=== PATIENT | female | born 1950 | race Caucasian/White ===

== ENCOUNTER 2022-01-05 04:44 | Inpatient (IN) | payer OTHER ==
[2022-01-05] MEDS ORDERED: MORPHINE 2 MG/ML SYR ONE (05:28)
[2022-01-05] MEDS ORDERED: NA CHLORIDE 0.9% 500 ML ONE (05:29)
[2022-01-05] MEDS ORDERED: ONDANSETRON 4 MG/2 ML VIAL ONE (05:29)
[2022-01-05 05:42] LABS: Absolute Lymphocytes (CBC) 4.4 K/uL (0.7-4.9); Hematocrit 44.6 % (36.0-45.0); MPV 8.2 fL (7.6-11.3); RBC Red Blood Cell Count 5.33 M/uL (3.86-4.86)
[2022-01-05 05:55] LABS: Albumin 3.5 g/dL (3.4-5.0); Bilirubin Total 0.4 mg/dL (0.2-1.0); Potassium 4.3 mmol/L (3.5-5.1); Protein, Total 7.4 g/dL (6.4-8.2)
[2022-01-05] MEDS ORDERED: MIDAZOLAM HCL 2 MG/2 ML INJ ONE (06:00)
[2022-01-05] MEDS ORDERED: ETOMIDATE 20 MG/10 ML VIAL IV ONE (06:02)
[2022-01-05] MEDS ORDERED: NA CHLORIDE 0.9% 1,000 ML ONE (06:12)
[2022-01-05] MEDS ORDERED: METHYLPREDNISOLONE 125 MG INJ ONE (06:40)
[2022-01-05] MEDS ORDERED: DIPHENHYDRAMINE 50 MG/ML VIAL ONE (06:40)
[2022-01-05] MEDS ORDERED: FAMOTIDINE 20 MG/2 ML VIAL IV ONE (06:40)
--- NOTE | 2022-01-05 06:44 | EDPHYS ---
Physician Documentation [facility] Name: Kely Harper Age: 71 yrs Sex: Female : 1950 Arrival Date: 01/05/2022 Time: 04:49 Bed External Waiting Private MD: NOÉ Physician Maicol Abad HPI: 01/05 05:59 This 71 yrs old Female presents to ER via EMS with complaints of FALL OUT OF [facility] BED , 2DAYS , DISLOCATED. 05:59 The patient or guardian complains of decreased range of motion, pain. left shoulder. [facility] Context: The problem was sustained at home, resulted from a fall, BED. Onset: The symptoms/episode began/occurred 2 day(s) ago. Modifying factors: the symptoms are alleviated by remaining still, The symptoms are aggravated by lifting weight, movement. Associated signs and symptoms: The patient has no apparent associated signs or symptoms. Severity of symptoms: At their worst the symptoms were moderate, in the emergency department the symptoms are unchanged. The patient has not experienced similar symptoms in the past. Historical: - Allergies: 04:57 Penicillins; tk1 04:57 fentanyl; tk1 - Home Meds: 04:57 aspirin 81 mg Oral cpDR [Active]; buspirone 10 mg Oral tab 1 tab 3 times per day tk1 [Active]; Vitamin D3 125 mcg (5,000 unit) oral tab [Active]; Depakote 125 mg Oral TbEC 1 tab 2 times per day [Active]; docusate sodium 100 mg Oral cap 1 cap once daily [Active]; lactulose 10 gram/15 mL (15 mL) Oral soln 30 mL once daily [Active]; Lorazepam 0.25 mg Oral q HS [Active]; multivitamin oral cap [Active]; simvastatin 20 mg Oral tab 1 tab once daily [Active]; tramadol 50 mg Oral tab 1 tab q HS [Active]; acetaminophen 325 mg Oral cap q 6 hr PRN for pain [Active]; ascorbic acid (vitamin C) 500 mg cap daily [Active]; zinc sulfate 50 mg zinc (220 mg) Oral tab daily [Active]; - PMHx: 04:57 Cerebral palsy; tk1 - Immunization history:: Adult Immunizations up to date. - Social history:: Smoking status: Patient denies any tobacco usage or history of. Smoking status: Patient denies any tobacco usage or history of. - Family history:: not pertinent. ROS: 05:59 Constitutional: Negative for fever, chills, and weight loss, Eyes: Negative for injury, marzena pain, redness, and discharge, ENT: Negative for injury, pain, and discharge, Neck: Negative for injury, pain, and swelling, Cardiovascular: Negative for chest pain, palpitations, and edema, Respiratory: Negative for shortness of breath, cough, wheezing, and pleuritic chest pain, Abdomen/GI: Negative for abdominal pain, nausea, vomiting, diarrhea, and constipation, Back: Negative for injury and pain, : Negative for injury, bleeding, discharge, and swelling, Skin: Negative for injury, rash, and discoloration, Neuro: Negative for headache, weakness, numbness, tingling, and seizure, Psych: Negative for depression, anxiety, suicide ideation, homicidal ideation, and hallucinations, Allergy/Immunology: Negative for hives, rash, and allergies, Endocrine: Negative for neck swelling, polydipsia, polyuria, polyphagia, and marked weight changes, Hematologic/Lymphatic: Negative for swollen nodes, abnormal bleeding, and unusual bruising. 05:59 MS/extremity: Positive for decreased range of motion, pain, swelling, tenderness, of the anterior aspect of left shoulder and posterior aspect of left shoulder. Exam: 05:59 Constitutional: This is a well developed, well nourished patient who is awake, alert, marzena and in no acute distress. Head/Face: Normocephalic, atraumatic. Eyes: Pupils equal round and reactive to light, extra-ocular motions intact. Lids and lashes normal. Conjunctiva and sclera are non-icteric and not injected. Cornea within normal limits. Periorbital areas with no swelling, redness, or edema. ENT: Nares patent. No nasal discharge, no septal abnormalities noted. Tympanic membranes are normal and external auditory canals are clear. Oropharynx with no redness, swelling, or masses, exudates, or evidence of obstruction, uvula midline. Mucous membranes moist. Neck: Trachea midline, no thyromegaly or masses palpated, and no cervical lymphadenopathy. Supple, full range of motion without nuchal rigidity, or vertebral point tenderness. No Meningismus. Chest/axilla: Normal chest wall appearance and motion. Nontender with no deformity. No lesions are appreciated. Cardiovascular: Regular rate and rhythm with a normal S1 and S2. No gallops, murmurs, or rubs. Normal PMI, no JVD. No pulse deficits. Respiratory: Lungs have equal breath sounds bilaterally, clear to auscultation and percussion. No rales, rhonchi or wheezes noted. No increased work of breathing, no retractions or nasal flaring. Abdomen/GI: Soft, non-tender, with normal bowel sounds. No distension or tympany. No guarding or rebound. No evidence of tenderness throughout. Back: No spinal tenderness. No costovertebral tenderness. Full range of motion. Female : Normal external genitalia. Skin: Warm, dry with normal turgor. Normal color with no rashes, no lesions, and no evidence of cellulitis. Neuro: Awake and alert, GCS 15, oriented to person, place, time, and situation. Cranial nerves II-XII grossly intact. Motor strength 5/5 in all extremities. Sensory grossly intact. Cerebellar exam normal. Normal gait. Psych: Awake, alert, with orientation to person, place and time. Behavior, mood, and affect are within normal limits. 05:59 Musculoskeletal/extremity: ROM: limited active range of motion due to pain, limited passive range of motion due to pain, in the anterior aspect of left shoulder and posterior aspect of left shoulder, Circulation is intact in all extremities. Sensation intact. Compartment Syndrome exam of affected extremity: is normal. Joints: All joints are normal except the left shoulder displays painful range of motion, swelling. 06:55 ECG was reviewed by the Attending Physician. [facility] Vital Signs: 04:50 BP 145 / 107; Pulse 87; Resp 20; Temp 97.3; Pulse Ox 97% on R/A; Weight 92.99 kg; vc1 Height 68 in. (172.72 cm); Pain 0/10; 07:53 BP 165 / 77; Pulse 71; Resp 16; Pulse Ox 100% on 3 lpm NC; tk1 09:32 BP 146 / 83; Pulse 77; Resp 16; Pulse Ox 96% ; [place] 04:50 Body Mass Index 31.17 (92.99 kg, 172.72 cm) vc1 Wilda Coma Score: 05:15 Eye Response: spontaneous(4). Verbal Response: incomprehensible(2). Motor Response: tk1 localizes pain(5). Total: 11. Trauma Score (Adult): 05:15 Eye Response: spontaneous(1); Verbal Response: incomprehensible(0); Motor Response: tk1 localizes pain(1); Systolic BP: > 89 mm Hg(4); Respiratory Rate: 10 to 29 per min(4); Wilda Score: 11; Trauma Score: 10 MDM: 05:[address] [facility] 06:05 Differential diagnosis: Anterior dislocation with fracture, Anterior dislocation marzena without fracture, Posterior dislocation with fracture, Posterior dislocation without fracture, DJD, tendonitis. Data reviewed: vital signs, nurses notes, lab test result(s), radiologic studies. Data interpreted: quality assurance monitor: rate is 97 beats/min, rhythm is regular, Pulse oximetry: on room air is 97 %. Test interpretation: by ED physician or midlevel provider: ECG, plain radiologic studies. Counseling: I had a detailed discussion with the patient and/or guardian regarding: the historical points, exam findings, and any diagnostic results supporting the discharge/admit diagnosis, lab results, radiology results, the need for outpatient follow up. 01/05 05:19 Order name: CBC with Diff [facility] 01/05 05:19 Order name: Comprehensive Metabolic Panel; Complete Time: 05:[address] [facility] 01/05 06:40 Order name: Valproic Acid (depakote) [facility] 01/05 08:36 Order name: Manual Differential [facility] 01/05 08:50 Order name: COVID-19 SARS RT PCR (Document "Date of Onset" if Symptomatic) 01/05 10:09 Order name: SARS-COV-2 RT PCR [facility]UT 01/05 05:19 Order name: Shoulder Left (2 View) XRAY [facility] 01/05 05:20 Order name: CT Head C Spine [facility] 01/05 05:48 Order name: Chest Single View XRAY [facility] 01/05 07:16 Order name: Shoulder Left Wo Con EDMS 01/05 06:40 Order name: EKG; Complete Time: 06:[address] [facility] 01/05 06:40 Order name: EKG - Nurse/Tech; Complete Time: 07:[address] [facility] 01/05 07:29 Order name: CONS Physician Consult EDMS EC:55 Rate is 76 beats/min. Rhythm is regular. QRS Dag[place] is Normal. AK interval is normal. QRS marzena interval is normal. QT interval is normal. No Q waves. T waves are Normal. No ST changes noted. Clinical impression: NSR w/ Non-specific ST/T Changes, 1st degree heart block, and No evidence of ischemia. Interpreted by me. Reviewed by me. Administered Medications: 05:22 Drug: morphine 2 mg Route: IVP; Rate: bolus; Infused Over: 2 mins; Site: right forearm; [facility] 06:48 Follow up: Response: No adverse reaction tk1 05:22 Drug: Zofran (Ondansetron) 4 mg Route: IVP; Rate: bolus; Infused Over: 2 mins; Site: marzena right forearm; 06:48 Follow up: Response: No adverse reaction tk1 05:23 Drug: NS 0.9% 500 ml Route: IV; Rate: bolus; Infused Over: 1 hrs; Site: right forearm; [facility] Delivery: Primary tubing; 06:30 Drug: Versed (midazolam) 2 mg Route: IVP; Rate: bolus; Infused Over: 1 mins; Site: tk1 right forearm; 06:45 Follow up: Response: Patient is sedated tk1 06:32 Drug: Etomidate 10 mg Route: IVP; Rate: bolus; Infused Over: 1 mins; Site: right tk1 forearm; 06:45 Follow up: Response: Patient is sedated tk1 06:33 Drug: Etomidate 2 mg Route: IVP; Rate: bolus; Infused Over: 1 mins; Site: right forearm;tk1 06:40 Drug: SOLU-Medrol (methylPrednisoLONE) 125 mg Route: IVP; Rate: bolus; Infused Over: 2 tk1 mins; Site: right forearm; 07:17 Follow up: Response: No adverse reaction tk1 06:45 Drug: Benadryl (diphenhydrAMINE) 25 mg Route: IVP; Rate: bolus; Infused Over: 2 mins; tk1 Site: right forearm; 07:17 Follow up: Response: No adverse reaction tk1 06:48 Not Given (1st dose effectivee): Versed (midazolam) 2 mg IVP once tk1 06:49 Drug: Pepcid (famotidine) 20 mg Route: IVP; Rate: bolus; Infused Over: 2 mins; Site: tk1 right forearm; 07:17 Follow up: Response: No adverse reaction tk1 06:51 Not Given (wrong routee): SOLU-Medrol (methylPREDNISolone sodium succinate) 125 mg IM tk1 once Disposition Summary: 01/05/22 06:43 Hospitalization Ordered Hospitalization Status: Observation marzena Provider: Paul Choe cha Location: Telemetry/MedSurg (observation) marzena Condition: Fair marzena Problem: new marzena Symptoms: have improved marzena Bed/Room Type: Standard marzena Room Assignment: marzena Diagnosis - Fall (on) (from) other stairs and steps - CHAIR marzena - Dislocation of unspecified parts of unspecified shoulder girdle, initial encounter marzena - LEFT SHOULDER - Severe intellectual disabilities - CEREBRAL PALSY(01/05/22 06:47) marzena - Adverse effect of other drugs, medicaments and biological substances marzena Forms: - Medication Reconciliation Form marzena - SBAR form marzena Signatures: Dispatcher [employer] EDMaicol House MD MD cha Kirby, Tammie tk1 Yara Pa RN RN vc1 Corrections: (The following items were deleted from the chart) 06:47 06:44 Severe intellectual disabilities marzena marzena
--- NOTE | 2022-01-05 06:44 | ER ---
Nurse's Notes [facility] Name: Kely Harper Age: 71 yrs Sex: Female : 1950 Arrival Date: 01/05/2022 Time: 04:49 Bed External Waiting Private MD: Diagnosis: Fall (on) (from) other stairs and steps-CHAIR;Dislocation of unspecified parts of unspecified shoulder girdle, initial encounter-LEFT SHOULDER;Severe intellectual disabilities-CEREBRAL PALSY;Adverse effect of other drugs, medicaments and biological substances Presentation: 01/05 04:50 Chief complaint: EMS states: Patient fell from chair to floor at group home onto left tk1 shoulder x1 day ago. Mobile xrays done. Possible left shoulder dislocation and neck fracture. Coronavirus screen: Vaccine status: Patient reports receiving the 2nd dose of the covid vaccine. Date December 24, 2021 Patient reports receiving the 1st dose of the Covid vaccine. Date December 03, 2021. Ebola Screen: Patient negative for fever greater than or equal to 101.5 degrees Fahrenheit, and additional compatible Ebola Virus Disease symptoms Patient denies exposure to infectious person. Initial Sepsis Screen: Does the patient meet any 2 criteria? No. Patient's initial sepsis screen is negative. Does the patient have a suspected source of infection? No. Patient's initial sepsis screen is negative. Risk Assessment: Do you want to hurt yourself or someone else? Patient reports no desire to harm self or others. Onset of symptoms was January 03, 2022. 04:50 Method Of Arrival: EMS: [facility] tk1 04:50 Acuity: NO 2 tk1 Triage Assessment: 04:57 General: Appears in no apparent distress. well groomed, well developed, well nourished, tk1 Behavior is calm, cooperative. Pain: Unable to use pain scale. Does not appear to understand pain scale. 05:10 EENT: No deficits noted. No signs and/or symptoms were reported regarding the EENT tk1 system. Neuro: Level of Consciousness is awake, alert, Oriented to Patient is non verbal.. Cardiovascular: Heart tones S1 S2 Rhythm is sinus rhythm. Respiratory: Airway is patent Trachea midline Respiratory effort is even, unlabored, Respiratory pattern is regular, symmetrical, Breath sounds are clear bilaterally. GI: No deficits noted. No signs and/or symptoms were reported involving the gastrointestinal system. GI: Abdomen is round non-distended, Bowel sounds present X 4 quads. Abd is soft and non tender X 4 quads. : No deficits noted. No signs and/or symptoms were reported regarding the genitourinary system. Derm: No deficits noted. Skin is intact, is healthy with good turgor, Skin is dry, Skin is pink, warm \\T\\ dry. Skin temperature is warm. Musculoskeletal: Capillary refill < 3 seconds, in bilateral fingers. Parent/caregiver report the patient having Possible left shoulder dislocation and neck fracture S/P fall x1 day ago. Cervical collar in place. No obvious deformity to left shoulder. Injury Description: Patient fell from chair to floor onto left side. of upper body. Historical: - Allergies: 04:57 Penicillins; tk1 04:57 fentanyl; tk1 - Home Meds: 04:57 aspirin 81 mg Oral cpDR [Active]; buspirone 10 mg Oral tab 1 tab 3 times per day tk1 [Active]; Vitamin D3 125 mcg (5,000 unit) oral tab [Active]; Depakote 125 mg Oral TbEC 1 tab 2 times per day [Active]; docusate sodium 100 mg Oral cap 1 cap once daily [Active]; lactulose 10 gram/15 mL (15 mL) Oral soln 30 mL once daily [Active]; Lorazepam 0.25 mg Oral q HS [Active]; multivitamin oral cap [Active]; simvastatin 20 mg Oral tab 1 tab once daily [Active]; tramadol 50 mg Oral tab 1 tab q HS [Active]; acetaminophen 325 mg Oral cap q 6 hr PRN for pain [Active]; ascorbic acid (vitamin C) 500 mg cap daily [Active]; zinc sulfate 50 mg zinc (220 mg) Oral tab daily [Active]; - PMHx: 04:57 Cerebral palsy; tk1 - Immunization history:: Adult Immunizations up to date. - Social history:: Smoking status: Patient denies any tobacco usage or history of. Smoking status: Patient denies any tobacco usage or history of. - Family history:: not pertinent. Screenin:59 Abuse screen: Denies threats or abuse. Nutritional screening: Difficulty vc1 chewing/swallowing? Yes. Tuberculosis screening: No symptoms or risk factors identified. 05:01 Fall Risk Fall in past 12 months (25 points). Secondary diagnosis (15 points) Cerebral vc1 Palsey. IV access (20 points). Ambulatory Aid- None/Bed Rest/Nurse Assist (0 pts). Gait- Normal/Bed Rest/Wheelchair (0 pts) Mental Status- Overestimates/Forgets Limitations (15 pts.). Total Stanford Fall Scale indicates High Risk Score (45 or more points). Fall prevention measures have been instituted. Side Rails Up X 2 Placed Close to Nursing Station Frequent Obs/Assessments Occuring. Assessment: 05:15 Reassessment: See Triage assessment. Trauma code called at [id number]. Security arrived at tk1 0449. 06:54 Reassessment: Patient with rash noted to trunk area. Dr. Abad at bedside. New tk1 verbal orders received. 07:36 Reassessment: conscious sedation flow sheet completed. pt base line is 8 d/t dx of CP tk1 pt does not move limbs. General: Appears in no apparent distress. Behavior is calm, cooperative. Neuro: Level of Consciousness is awake, alert, Oriented to none pt dx with CP, pt is awake and alert.. 12:03 Reassessment: Pt to OR at this time. Unknown whether or not that patient will get a ss room assignment on second floor per Leyda, supervisor hanging and trimming or if patient will come back to ED. Vital Signs: 04:50 BP 145 / 107; Pulse 87; Resp 20; Temp 97.3; Pulse Ox 97% on R/A; Weight 92.99 kg; vc1 Height 68 in. (172.72 cm); Pain 0/10; 07:53 BP 165 / 77; Pulse 71; Resp 16; Pulse Ox 100% on 3 lpm NC; tk1 09:32 BP 146 / 83; Pulse 77; Resp 16; Pulse Ox 96% ; [place] 04:50 Body Mass Index 31.17 (92.99 kg, 172.72 cm) vc1 Vitals: 05:15 Cardiac Rhythm Assessment Regular Sinus rhythm. tk1 Remington Coma Score: 05:15 Eye Response: spontaneous(4). Verbal Response: incomprehensible(2). Motor Response: tk1 localizes pain(5). Total: 11. Trauma Score (Adult): 05:15 Eye Response: spontaneous(1); Verbal Response: incomprehensible(0); Motor Response: tk1 localizes pain(1); Systolic BP: > 89 mm Hg(4); Respiratory Rate: 10 to 29 per min(4); Remington Score: 11; Trauma Score: 10 ED Course: 04:49 Patient arrived in ED. tk1 04:50 Zaynab Granados is Primary Nurse. tk1 04:57 Triage completed. tk1 04:58 Arm band placed on left wrist. vc1 04:58 Patient has correct armband on for positive identification. Bed in low position. Call vc1 light in reach. Side rails up X2. manager monitoring on. Pulse ox on. NIBP on. Door closed. Warm blanket given. Pillow given. 05:11 Maicol Abad MD is Attending Physician. marzena 05:15 Initial lab(s) drawn, by pa, sent to lab. Inserted saline lock: 22 gauge 24 gauge tk1 forearm, using aseptic technique. Inserted saline lock: Blood collected. Patient maintains SpO2 saturation greater than 95% on room air. 05:22 Comprehensive Metabolic Panel Sent. marzena 05:22 CBC with Diff Sent. marzena 05:44 CT Head C Spine In Process Unspecified. EDMS 06:27 Shoulder Left (2 View) XRAY In Process Unspecified. EDMS 06:30 Chest Single View XRAY In Process Unspecified. EDMS 06:41 Paul Choe MD is Hospitalizing Provider. marzena 07:38 No provider procedures requiring assistance completed. Inserted saline lock:. tk1 07:44 Primary Nurse role handed off by Zaynab Granados bd 09:28 COVID-19 SARS RT PCR (Document "Date of Onset" if Symptomatic) Sent. [place] 12:03 Patient admitted, IV remains in place. [place] Administered Medications: 05:22 Drug: morphine 2 mg Route: IVP; Rate: bolus; Infused Over: 2 mins; Site: right forearm; marzena 06:48 Follow up: Response: No adverse reaction tk1 05:22 Drug: Zofran (Ondansetron) 4 mg Route: IVP; Rate: bolus; Infused Over: 2 mins; Site: [facility] right forearm; 06:48 Follow up: Response: No adverse reaction tk1 05:23 Drug: NS 0.9% 500 ml Route: IV; Rate: bolus; Infused Over: 1 hrs; Site: right forearm; [facility] Delivery: Primary tubing; 06:30 Drug: Versed (midazolam) 2 mg Route: IVP; Rate: bolus; Infused Over: 1 mins; Site: tk1 right forearm; 06:45 Follow up: Response: Patient is sedated tk1 06:32 Drug: Etomidate 10 mg Route: IVP; Rate: bolus; Infused Over: 1 mins; Site: right tk1 forearm; 06:45 Follow up: Response: Patient is sedated tk1 06:33 Drug: Etomidate 2 mg Route: IVP; Rate: bolus; Infused Over: 1 mins; Site: right forearm;tk1 06:40 Drug: SOLU-Medrol (methylPrednisoLONE) 125 mg Route: IVP; Rate: bolus; Infused Over: 2 tk1 mins; Site: right forearm; 07:17 Follow up: Response: No adverse reaction tk1 06:45 Drug: Benadryl (diphenhydrAMINE) 25 mg Route: IVP; Rate: bolus; Infused Over: 2 mins; tk1 Site: right forearm; 07:17 Follow up: Response: No adverse reaction tk1 06:48 Not Given (1st dose effectivee): Versed (midazolam) 2 mg IVP once tk1 06:49 Drug: Pepcid (famotidine) 20 mg Route: IVP; Rate: bolus; Infused Over: 2 mins; Site: tk1 right forearm; 07:17 Follow up: Response: No adverse reaction tk1 06:51 Not Given (wrong routee): SOLU-Medrol (methylPREDNISolone sodium succinate) 125 mg IM tk1 once Outcome: 06:43 Decision to Hospitalize by Provider. marzena 12:03 Admitted to OR accompanied by nurse, via stretcher. [place] 12:03 Condition: stable 12:03 Instructed on the need for admit. 12:03 Patient left the ED. [place] Signatures: Dispatcher [employer] EDMacrina Ledesma Corey, MD MD cha Smirch, Shelby, RN RN ss Zuri Beverly RN RN ha Kirby, Tammie tk1 Yara Pa RN RN vc1
--- NOTE | 2022-01-05 07:29 | P.HP ---
Certification for Inpatient Patient admitted to: Inpatient With expected LOS: >2 Midnights Practitioner: I am a practitioner with admitting privileges, knowledge of patient current condition, hospital course, and medical plan of care. Services: Services provided to patient in accordance with Admission requirements found in Title 42 Section 412.3 of the Code of Federal Regulations Patient History Date of Service: 01/05/22 Reason for admission: Fall, possible humeral fracture, dislocation History of Present Illness: 71-year-old female, PMH: Cerebral palsy Presents to ED from [facility] due to left shoulder pain after fall from sitting position approximately 2 days ago. Nursing staff unavailable to review HPI. Patient is deaf and minimally verbal, unable to get history from her. History obtained from ED physician. Patient was brought in due to discomfort/pain of the left shoulder, not her typical self. In the ED, work-up noted dislocated left shoulder, possible humeral fracture. Orthopedic surgery was consulted after failed attempts of shoulder reduction in the ED. ED physician requests admission for further management. Allergies fentanyl Allergy (Verified 01/05/22 08:53) Itching Penicillins Allergy (Verified 01/05/22 08:53) Itching Home Medications: Acetaminophen [Tylenol] 2 tab PO Q6H PRN 01/05/22 Ascorbic Acid 1 tab PO DAILY 01/05/22 Aspirin 1 tab PO DAILY 01/05/22 Buspirone HCl [Buspar] 10 mg PO TID 01/05/22 Cholecalciferol (Vitamin D3) [Vitamin D3] 2,000 unit PO DAILY 01/05/22 Cholecalciferol (Vitamin D3) [Vitamin D3] 5,000 unit PO DAILY 01/05/22 Divalproex Sodium [Depakote Sprinkle] 2 cap PO BID 01/05/22 Docusate Sodium 1 tab PO DAILY 01/05/22 LORazepam [Ativan] 0.25 mg PO BEDTIME 01/05/22 Lactulose 30 ml PO BEDTIME 01/05/22 Multivitamin 1 tab PO DAILY 01/05/22 Simvastatin 20 mg PO BEDTIME 01/05/22 Tramadol HCl [Ultram] 1 tab PO BEDTIME 01/05/22 Zinc 220 mg PO DAILY 01/05/22 - Past Medical/Surgical History -: Cerebral palsy -: Muscle contractures -: Chronic pain syndrome -: Deaf -: Cognitive communication deficit -: Vitamin D deficiency -: Aphasia -: Intellectual disability Past Surgical History: Unable to obtain - Family History Family History: Reviewed- Non-Contributory (Unable to be obtained) - Social History Smoking Status: Unknown if ever smoked Place of Residence: Residential Review of Systems is unable to be obtained Physical Examination - Physical Exam General: Other (Awake, aphasic) HEENT: EOMI, Sclerae nonicteric Respiratory: Clear to auscultation bilaterally, Normal air movement Cardiovascular: No edema, Regular rate/rhythm Gastrointestinal: Soft and benign, Non-distended, No tenderness Musculoskeletal: Tenderness (Left shoulder) Neurological: Other (Aphasic, moves extremities) - Studies Laboratory Data (last 24 hrs) 01/05/22 04:45: Sodium 141, Potassium 4.3, BUN 15, Creatinine 0.69, Glucose 82, Total Bilirubin 0.4, AST 15, ALT 11 L, Alkaline Phosphatase 94 01/05/22 04:45: WBC 9.70, Hgb 14.4, Hct 44.6, Plt Count 252 Assessment and Plan - Advance Directives Does patient have a Living Will: No Does patient have a Durable POA for Healthcare: No Physician Review Additional Text: Problem List Fall, L shoulder dislocation, possible humeral fracture Cerebral Palsy Aphasia Intellectual disability Dementia obtain med records from [facility] unable to reduce in ED Ortho consulted CT ordered unclear what lead to patient's fall, seems to be bedbound/wheelchair bound facesheet from [facility] - DNR confirm chronic meds, restart as appropriate NPO, IVF for now check UA - straight cath VTE: SCDs Code: DNR per [facility] facesheet, confirmed with sister Dispo: SNF in ~2 days Time Spent Managing Pts Care (In Minutes): 60
--- NOTE | 2022-01-05 08:04 | RAD REPORT ---
EXAM DESCRIPTION: CT - Shoulder Left Wo Con - 01/05/2022 7:42 am CLINICAL HISTORY: shoulder dislocation COMPARISON: Shoulder Left 2 View dated 01/05/2022 TECHNIQUE: Axial 3 millimeter thick images of the left shoulder were obtained without IV contrast. S agittal and coronal reformatted images were generated and reviewed. All CT scans are performed using dose optimization technique as appropriate and may include automate d exposure control or mA/KV adjustment according to patient size. FINDINGS: Anterior dislocation of the left humeral head is noted with the humeral head perched on th e anterior margin of the bony glenoid. No fracture of the humerus or scapula noted. Patient has as a baseline extensive degenerative change. Bony spurring seen along the articular margins of the humeral head and bony glenoid. Numerous subcortical degenerative cysts are seen and there is flattening of t he humeral head articular contour. Several bone densities are present around the humeral head. These are corticated and not free fracture fragments. No AC joint separation. No significant degenerative change at the AC joint. IMPRESSION: Anterior dislocation of the humeral head with the humeral head perched on the anterior m argin of the bony glenoid. Patient has advanced degenerative changes to the articular cortex and articular margins of the omayra l head as well as to the bony glenoid. Several small calcifications are present in the soft tissues adjacent to the humeral head. These are corticated and not suspected to be fracture fragments. A 2 x 1 centimeter calcific density near the h umeral head articular surface abuts the medial margin of the bony glenoid and could affect reduction maneuvers. No AC joint abnormality.
[2022-01-05 08:36] LABS: Blood Morphology Comment NOT SEEN (NOT SEEN); Platelet Estimate ADEQ
--- NOTE | 2022-01-05 08:59 | RAD REPORT ---
EXAM DESCRIPTION: RAD - Chest Single View - 01/05/2022 6:30 am CLINICAL HISTORY: COUGH COMPARISON: None TECHNIQUE: AP portable chest image was obtained 01/05/2022 6:30 am . FINDINGS: Low lung volumes from shallow inspiration. This accentuates but appears to be a baseline p rominent interstitial pattern. Mild edema or infiltrate cannot be excluded. No peripheral mass or con solidation. Trachea is midline. Resuscitation paddle overlies the right-side chest. Heart and vasculature are nor mal. No measurable pleural effusion and no pneumothorax. No acute aortic findings suspected. Right shoulder degenerative changes are present. More advanced degenerative changes are present at th e left shoulder with anterior dislocation. Degenerative spurring changes are seen around the humeral head. Age of the dislocation cannot be determined. There are no prior imaging studies that included t he left shoulder. IMPRESSION: Chronic interstitial pattern throughout the lung estrada. This is probably baseline fibro sis though mild interstitial edema or infiltrate would be possible. Anterior dislocation left shoulder with prominent degenerative change. Age is uncertain.
[2022-01-05] MEDS: NA CHLORIDE 0.9% 1,000 ML IV SCH ×3 (09:26→22:41)
[2022-01-05] MEDS ORDERED: ACETAMINOPHEN 500 MG TAB PO PRN (09:26)
[2022-01-05] MEDS ORDERED: LIDOCAINE 1% 20 ML MDV ONE (11:22)
[2022-01-05] MEDS ORDERED: Ringers Lactate 1,000 ML IV ONE (11:41)
[2022-01-05] MEDS ORDERED: LIDOCAINE 2% MPF 5 ML VIAL ONE (11:43)
[2022-01-05] MEDS ORDERED: propofoL 200 MG/20 ML VIAL IV ONE (11:43)
--- NOTE | 2022-01-05 11:48 | RAD REPORT ---
EXAM DESCRIPTION: CT - [id number] - 01/05/2022 6:26 am CLINICAL HISTORY: 71 years Female PAIN TECHNIQUE: Multiple axial CT images of the brain and cervical spine were performed followed by sagit camron and coronal reconstructed images. The CT study is performed according to ALARA (as low as reasona homero achievable) or ALARA/IMAGE GENTLY, with automatic adjustment of mA and/or kV according to patient size. Performed on: 01/05/2022 at 5:36 AM COMPARISON: None. FINDINGS: CT HEAD: There is no evidence of mass, acute mass effect or midline shift. There are no acute extra-axial flui d collections. There is no evidence of acute intracranial hemorrhage. The cerebral sulci and ventricles are prominent consistent with mild cerebral volume loss. There are scattered areas of decreased attenuation within the subcortical and periventricular white m atter most likely due to mild chronic microangiopathy. There is no evidence of a hyperdense MCA. There is no significant mucosal thickening of the paranasal sinuses. The mastoid air cells are grossly clear. The orbital contents are grossly unremarkable. No acute osseous abnormalities are identified. No focal soft tissue abnormalities are identified. CT CERVICAL SPINE: The cervical vertebrae are normal in height. There is straightening of the normal cervical lordosis w hich may be secondary to patient positioning or muscle spasm. There is multilevel disc space narrowin g throughout the cervical spine with associated degenerative endplate spurring. There is overall decr eased bone mineralization. The atlanto-axial articulation is preserved and the odontoid process is in tact. There is mild basilar impression with upward translocation of the odontoid process relative to the foramen magnum. This appearance can be seen with rheumatoid arthritis. There is normal alignment of the facet joints on the parasagittal images. There are moderate degenera tive changes of the cervical spine. There is no evidence of acute fracture or subluxation. There is no significant canal stenosis. Ther e is mild right greater than left C3-C4, C4-C5 and mild bilateral C5-C6 neural foraminal stenosis sec ondary to uncovertebral joint and facet joint hypertrophy. The paravertebral and paraspinal soft tiss ues are unremarkable. The lung apices reveal minimal pleural parenchymal scarring in the left lung apex. There is marked di stention of the hypopharynx. IMPRESSION: CT HEAD: 1. No evidence of acute intracranial pathology. 2. Mild cerebral volume loss with findings compatible with mild chronic microangiopathy. CT CERVICAL SPINE: 1. No evidence of acute osseous injury involving the cervical spine. 2. Moderate degenerative changes of the cervical spine. 3. Straightening of the normal cervical lordosis which may be secondary to patient positioning or mus rosa spasm. 4. There is partial basilar impression with upward translocation of the odontoid process relative to the foramen magnum. This appearance can be seen with rheumatoid arthritis. Electronically signed by: Na Chavarria DO 01/05/2022 6:13 AM SONOGRAPHER Due to temporary technical issues with the PACS/Fluency reporting system, reports are being signed by the in house radiologist without review as a courtesy to ensure prompt reporting. The interpreting r adiologist is fully responsible for the content of the report.
--- NOTE | 2022-01-05 12:45 | P.BOP ---
Preoperative diagnosis: left shoulder glenohumeral dislocation Postoperative diagnosis: same Primary procedure: closed reduction left shoulder dislocation under resource agent: NONE,NONE Estimated blood loss: 0 Specimen: none Findings: see dictation Anesthesia: General Complications: None Implants: none Fluids & blood products: per anesthesia Transferred to: Recovery Room Condition: Good
--- NOTE | 2022-01-05 13:28 | RAD REPORT ---
EXAM DESCRIPTION: RAD - Shoulder Left 2 View - 01/05/2022 6:27 am CLINICAL HISTORY: Pain COMPARISON: None. TECHNIQUE: Left Shoulder 2 Views FINDINGS: Left glenohumeral joint anterior dislocation. Possible acute impacted left humeral head fracture. Osteopenia. Left acromioclavicular joint space narrowing with small osteophyte formation. Marked aortic arch calcification. Cervical spine degenerative disease. IMPRESSION: 1. Left glenohumeral joint anterior dislocation. 2. Possible acute impacted left humeral head fracture. 3. Osteopenia. 4. Mild left acromioclavicular DJD. Electronically signed by: Uriel Mcelroy MD 01/05/2022 6:41 AM INSURANCE CUSTOMER SERVICE SPECIALIST Due to temporary technical issues with the PACS/Fluency reporting system, reports are being signed by the in house radiologist without review as a courtesy to ensure prompt reporting. The interpreting r adiologist is fully responsible for the content of the report.
--- NOTE | 2022-01-05 13:44 | RAD REPORT ---
EXAM DESCRIPTION: RAD - Shoulder Left 2 View - 01/05/2022 1:30 pm CLINICAL HISTORY: POST OP LEFT SHOULDER AP AND Y-VIEW COMPARISON: Shoulder Left 2 View dated 01/05/2022 TECHNIQUE: Multiple left shoulder images were obtained following intraoperative shoulder reduction m aneuvers. FINDINGS: Six images were submitted. Left humeral head still appears to be anteriorly dislocated and perched along the anterior margin of the bony glenoid. AC joint remains unremarkable. No fracture or new bone finding identifiable.
--- NOTE | 2022-01-05 13:52 | RAD REPORT ---
EXAM DESCRIPTION: RAD - Fluoroscopy <1 Hour - 01/05/2022 1:30 pm FINDINGS: There were 5 portable C-arm views submitted and 2 portable images submitted from fluorosco pic assisted intraoperative left shoulder reduction procedure. Fluoro time was 0.1 minutes. Cumulative dose was 1.73 mGy. Images show what appears to be partial reduction of the dislocated left humerus. The separately repor ayaka postprocedure images shows what appears to be persistent humeral head dislocation. Correlation is needed with findings during real-time fluoroscopic assessment.
--- NOTE | 2022-01-05 13:55 | RAD REPORT ---
EXAM DESCRIPTION: RAD - Femur Left - 01/05/2022 1:30 pm CLINICAL HISTORY: 1 VIEW IS IN OR1, PER DR POON COMPARISON: None FINDINGS: AP view of the mid pelvis to mid femoral shaft was obtained along with a lateral view from the mid shaft femur to the mid tibia level. No fracture or acute bone finding identified. There is chronic deformity of the left hip joint. The f emoral head has a flattened superior contour. No pathologic or destructive process seen. There is def ormity and remodeling of the acetabulum. This could be a congenital hip dysplasia or chronic hip join t degenerative change and remodeling. Partially imaged SI joint and pubic symphysis show no acute findings. Midshaft femur to mid tibia leonila ge shows no suspicious finding. There is mild congestion or edema in the soft tissues anterior to the knee joint and proximal tibia. No foreign body seen in the soft tissues. IMPRESSION: Chronic deformity or dysplasia of the left hip joint. No fracture or acute hip joint or femur finding.
[2022-01-05 16:14] VITALS: BMI 31.1
[2022-01-05 18:35] LABS: Urine Appearance CLEAR (Clear); Urine Bilirubin NEGATIVE (Negative); Urine Blood TRACE (Negative); Urine Color YELLOW (Yellow); Urine Glucose NEGATIVE (Negative); Urine Microscopic Reflex ORDER UMIC; Urine Protein NEGATIVE (Negative); Urine Urobilinogen 0.2 mg/dL (0.2-1.0); Urine pH 6.5 (5.0-7.0)
[2022-01-05 18:50] LABS: Urine Bacteria 20-50 /HPF (<20); Urine RBC <5 /HPF (NONE SEEN)
--- NOTE | 2022-01-05 22:09 | CON ---
Date of Consultation: 01/05/2022 Reason For Consultation: Left shoulder dislocation. History Of Present Illness: Kely is a 71-year-old female who presented to the ER after sustaining a fall onto her left side a couple of days ago. The patient noted to be experiencing some pain and h ad x-rays, which demonstrated a left glenohumeral subluxation and dislocation. Patient is unable to communicate for further history. Further history was also taken from her sister who has not seen the patient for an extended period of time. The patient does have history of cerebral palsy and is donis mbulatory and she has been living at a detention for over 20 years. Patient is noted to have a hi story of generalized osteoarthritis. Review of Systems: As above, otherwise unable to obtain. Past Medical History: Includes cerebral palsy. Home Medications: Aspirin, vitamin D, lactulose, Tylenol, and vitamin C. Allergies: PENICILLIN AND FENTANYL. Social History: Denies tobacco or alcohol use. Lives in a detention. Physical Examination: General: No apparent distress. Unable to follow commands for the exam. Extremities: Right upper extremity functional range of motion without pain. No gross deformities. No obvious dislocations. Left upper extremity, no pain with internal and external rotation of the le ft shoulder. There is some fullness of the anterior shoulder consistent with a subluxation of the sh oulder joint. No tenderness over the elbow, forearm, or hand yet. Moves fingers grossly. Note, ravi ateral lower extremities, the patient holds her lower extremities in a flexed hip position and knee f lexion position with contracture. She does grimace with some left lower extremity motion. Assessment And Plan: Kely is a 71-year-old female with a left glenohumeral dislocation. I discuss ed with the patient's family her diagnosis as well as treatment options. It was difficult to ascerta in how long she has had this shoulder dislocation and what her general function is. The patient is d o not resuscitate. The patient's family would not like to proceed with any kind of open surgical pro cedure. We will proceed with closed reduction under general anesthesia. I discussed with the family the possibility of redislocation or incomplete reduction and they expressed understanding. We will proceed with closed reduction later today. CV/MODL Voice ID: [id number] Report ID: [id number]
[2022-01-05] MEDS: BUSPIRONE HCL 5 MG TABLET PO SCH (22:40)
[2022-01-05] MEDS: DIVALPROEX NA 125 MG CAP PO SCH (22:40)
[2022-01-06 04:13] LABS: Absolute Lymphocytes (CBC) 1.3 K/uL (0.7-4.9); Hematocrit 36.4 % (36.0-45.0); Lymphocytes % 14.9 % (15.3-44.8); RBC Red Blood Cell Count 4.37 M/uL (3.86-4.86)
[2022-01-06 04:22] LABS: ALT/SGPT 8 U/L (12-78); AST/SGOT 16 U/L (15-37); Albumin 2.7 g/dL (3.4-5.0); Alkaline Phosphatase 71 U/L (45-117); BUN Blood Urea Nitrogen 12 mg/dL (7-18); Bicarbonate 29 mmol/L (21-32); Bilirubin Total 0.3 mg/dL (0.2-1.0); Glucose Level 101 mg/dL (74-106); Magnesium 2.1 mg/dL (1.8-2.4); Potassium 4.2 mmol/L (3.5-5.1); Protein, Total 5.8 g/dL (6.4-8.2); Sodium Level 144 mmol/L (136-145)
--- NOTE | 2022-01-06 06:30 | P.PN ---
Date of Service: 01/06/22
[2022-01-06 07:55] VITALS: O2SAT 94
[2022-01-06] MEDS ORDERED: ASPIRIN 81 MG CHEWABLE TABLET PO SCH (09:00)
[2022-01-06] MEDS ORDERED: HOME MED 1 EA UNK (Cholecalciferol (Vitamin D3) [Vitamin D3] 2000 UNIT Capsule) PO SCH (09:00)
[2022-01-06] MEDS ORDERED: ZINC SULFATE 220 MG CAP PO SCH (09:00)
[2022-01-06] MEDS ORDERED: ASCORBIC ACID 500 MG TABLET PO SCH (09:00)
[2022-01-06] MEDS ORDERED: HOME MED 1 EA UNK (Cholecalciferol (Vitamin D3) [Vitamin D3] 50 MCG Capsule) PO SCH (09:00)
[2022-01-06] MEDS ORDERED: DOCUSATE NA 100 MG CAP PO SCH (09:00)
[2022-01-06] MEDS: BUSPIRONE HCL 5 MG TABLET PO SCH ×2 (09:29→13:24)
[2022-01-06] MEDS: DIVALPROEX NA 125 MG CAP PO SCH (09:29)
--- NOTE | 2022-01-06 11:17 | EKG ---
Test Date: 2022-01-05 Test Time: 06:51:48 Civil Lawyer: ALBERTA MEASUREMENT RESULTS: Intervals: Rate: 76 NM: 210 QRSD: 74 QT: 372 QTc: 418 [place]: P: 72 NM: 210 QRS: 17 T: 62 INTERPRETIVE STATEMENTS: Sinus rhythm with 1st degree AV block Otherwise normal ECG No previous ECG available for comparison Electronically Signed On 01-06-22 11:13:58 ICE GUARD INSPECTOR by Cruz Mojica
[2022-01-06] MEDS: NA CHLORIDE 0.9% 1,000 ML IV SCH ×2 (13:27→15:26)
[2022-01-06 16:34] VITALS: BP 142/68; TEMP 97.5
--- NOTE | 2022-01-06 19:55 | P.PN ---
Subjective Date of Service: 01/06/22 Chief Complaint: left shoulder dislocation postop xrays demonstrated redislocation of the shoulder; patient comfortable in bed at this time Physical Examination - Vital Signs Temperature: 97.5 F Blood Pressure: 142/68 Pulse: 89 Respirations: 18 Pulse Ox (%): 96 - Physical Exam General: Alert, In no apparent distress Musculoskeletal: Other (LUE: patient holding elbow in flexed position with some contractures noted in hands; some grimacing with external rotation of the shoulder; 2+ radial pulse) Assessment And Plan - Plan Kely is a 71 yo female with a left shoulder dislocation Postoperative x-rays of the left shoulder demonstrate repeat dislocation of the left shoulder. Given the patient's inability to follow commands and restrictions for the left shoulder as well as her increased tonicity and contractures from her cerebral palsy there is a high likelihood for redislocation of this injury. I discussed this with the patient's family at length and they expressed understanding. Given the high risk of redislocation, they do not want to proceed with any further reduction attempts or surgical treatment or reconstruction. The patient will remain in the sling at this time and follow-up in 2 weeks for reevaluation and x-rays of her left shoulder.
[2022-01-06] MEDS ORDERED: TRAMADOL HCL 50 MG TAB PO SCH (21:00)
[2022-01-06] MEDS ORDERED: ATORVASTATIN 10 MG TAB PO SCH (21:00)
[2022-01-06] MEDS ORDERED: LORAZEPAM 0.5 MG TABLET PO SCH (21:00)
--- NOTE | 2022-01-07 07:40 | OP ---
Date of Procedure: 01/05/2022 Surgeon: Rolando Medel MD Preoperative Diagnosis: Left glenohumeral dislocation. Postoperative Diagnosis: Left glenohumeral dislocation. Procedure Performed: Closed reduction, left shoulder dislocation under anesthesia. Anesthesia: General LMA. Fluids: Per Anesthesia record. Ebl: None. Specimens: None. Complications: None. Indication For Procedure: Kely is a 71-year-old female, who presented to the ER today with history of fall and x-rays demonstrated a left shoulder dislocation. I discussed with the patient and her f amily at length her diagnosis as well as treatment options. The dislocation was subacute. Patient a lso has history of cerebral palsy. I discussed with the patient and her family possibility of recurr ence as well as inability of reduction. The family did not want any open or surgical treatment, but did agree to attempt a closed reduction. Description Of Procedure: After informed consent was obtained, the patient was identified in the pre operative holding area. The left upper extremity was marked. Patient was brought back to the operat juan francisco room, transferred to the operating table in supine fashion, placed under general LMA anesthesia. A time-out was initiated. The correct patient and procedure were confirmed and identified. Counter traction was then performed using a sheet around the patient's torso and gentle traction was placed on the left upper extremity using a sheet pulling at the proximal forearm. Using gentle traction, th e shoulder was manipulated and internal and external rotation. The patient was noted to have signifi cant contractures around the left upper extremity, shoulder. It was noted that patient had a signifi cant instability of the left shoulder that it would go in and out of reduction during the reduction m aneuver. Once the shoulder was reduced, lateral x-rays were performed using plain films and they did show that glenohumeral joint was reduced. The patient was placed in a shoulder sling, awakened, and transferred to PACU in stable condition. Postoperative Plan: She will remain in the sling. Continue to monitor the patient's shoulders. She does not follow commands and there is high likelihood of re-dislocation and this was discussed with her family. The patient's family does not request any further operative intervention in the future i f the shoulder does lose reduction. We will continue to monitor the patient and have her follow up i n 2 weeks for re-evaluation. CV/MODL Voice ID: [id number] Report ID: [id number]
== END 2022-01-06 19:22 | DRG 563 ==
LOC: ER 04:44 → ERHOLD 07:21 → 2ND 14:11
PROVIDERS: ADMIT Hospitalist; ATTEND Hospitalist
PROC: 0PSGXZZ Reposition Left Humeral Shaft, External Approach (ICD-10-PCS; principal; 2022-01-05 12:00)
DX: S43.305A Dislocation of unspecified parts of left shoulder girdle, initial encounter (principal); R47.01 Aphasia; G80.9 Cerebral palsy, unspecified; F79 Unspecified intellectual disabilities; F03.90 Unspecified dementia, unspecified severity, without behavioral disturbance, psychotic disturbance, mood disturbance, and anxiety; W07.XXXA Fall from chair, initial encounter; Z88.0 Allergy status to penicillin; Z88.5 Allergy status to narcotic agent; Z79.82 Long term (current) use of aspirin; Z79.899 Other long term (current) drug therapy; Z99.3 Dependence on wheelchair; Z66 Do not resuscitate; Z20.822 Contact with and (suspected) exposure to COVID-19
CPT/HCPCS: 36415; 70450; 71045; 72125; 73200; 76000; 80053; 80164; 81003; 81015; 83735; 85025; 87077; 87086; 87088; 87186; 93005; 94760; 96374; 96375; 97161; 99285; J1200; J2250; J2270; J2405; J2704; J2930; J7030; J7040; J7120; U0003

== ENCOUNTER 2023-07-12 15:38 | Inpatient (IN) | payer OTHER ==
--- OUTSIDE RECORDS SUMMARY | 2023-07-12 15:42 | XMS REPORT | Continuity of Care Document ---
:1950 Author Organization [facility] t Address [address] [address] Care Team Providers Name Role Phone [email or web address] Attending Clinician Unavailable Shannon Sutton Attending Clinician [phone] Mike Snider Attending Clinician [phone] [email or web address] Attending Clinician Unavailable [email or web address]_Todd_J Admitting Clinician Unavailable [email or web address]_G Admitting Clinician Unavailable Payers Payer Name Policy Type Policy Number Effective Date Expiration Date Dewayne ford MEDICARE B-[place]: [id number] 1985 [email or web address] 00:00:00 [employer] [id number] 2016 [facility] (MEDICAID 00:00:00 HMO) Problems Condition Condition Condition Status Onset Resolution Last Treating Co mments Source Name Details Category Date Date Treatment Clinician Date Unable to Unable to Problem Active [facility] feed self Feed Self 03-16 Medi zeke 00:00: 00 Double Double Problem Active [facility] incontinen Incontinen 1-29 Me dical ce ce 00:00: 00 Raised Raised Problem Active 2021-11 [facility] thyroid Thyroid 0-28 Medical stimulatin Stimulatin 00:00: g hormone g Hormone 00 level Level Frailty Frailty Problem Active [facility] - Medical 00:00: 00 Total Total Problem Active [facility] self-care Self-care 08-16 Medi zeke deficit Deficit 00:00: 00 Lives in a Lives in a Problem Active [facility] nursing Nursing 08-16 Medical home Home 00:00: 00 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 Deficiency 00:00: disorder Disorder 00 Dry skin Dry Skin Problem Active [facility] dermatitis Dermatitis 7-07 Me dical 00:00: 00 Unable to Unable to Problem Active [facility] speak Speak 5-22 Medical 00:00: 00 Needs help Needs Help Problem Active [facility] with with 5-22 Medical feeding Feeding 00:00: 00 Senile Senile Problem Active [facility] purpura Purpura 4-20 Medical 00:00: 00 Hypercoagu Hypercoagu Problem Active [facility] lability lability 4-20 Medica l state State 00:00: 00 Mood Mood Problem Active [facility] disorder Disorder 4-20 Medica l 00:00: 00 Peripheral Peripheral Problem Active [facility] vascular Vascular 4-20 Medica l disease Disease 00:00: 00 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 4-20 Me dical ia ia 00:00: 00 Recurrent Recurrent Problem Active [facility] via falls Falls 4-20 Medical 00:00: 00 Opioid Opioid Problem Active [facility] dependence Dependence 4-20 Me dical with with 00:00: current Current 00 use Use Chronic Chronic Problem Active [facility] pain Pain 4-12 Medical syndrome Syndrome 00:00: 00 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 Palsy 4-12 Medical 00:00: 00 Chronic Chronic Problem Active [facility] rhinitis Rhinitis 4-12 Medica l 00:00: 00 Vitamin D Vitamin D Problem Active [facility] via deficiency Deficiency 4-12 Me dical 00:00: 00 Hyperlipid Hyperlipid Problem Active [facility] emia emia 4-12 Medical 00:00: 00 Dysphagia Dysphagia Problem Active [facility] Medical At high At High Problem Active [facility] risk for Risk for Medica l fall Fall Generalize Generalize Problem Active [facility] d anxiety d Anxiety Medi zeke disorder Disorder Allergies, Adverse Reactions, Alerts Allergy Allergy Status Severity Reaction(s) Onset Inactive Treating Comm ents Source Name Type Date Date Clinician Fentanyl Allergy Active [facility] to 2-15 Medical substanc 00:00: e 00 PENICILL Allergy Active [facility] INS to Medical substanc e Social History Smoking Status Start Date Stop Date Source Never Smoker [facility] Medical Medications Ordered Filled Start Stop Current Ordering Indication Dosage Frequency Signature Comments Components Source Medication Medication Date Date Medication? Clinician (SIG) Name Name acetaminoph acetaminoph 2021-0 No 2TAB acetaminop [facility] en 325 mg en 325 mg 2-15 hen 325 mg Medical tablet 2 tablet 2 00:00: tablet 2 tablets by tablets by 00 tablets by oral route. oral route. oral route. acetaminoph acetaminoph 2021-0 No 2TAB acetaminop [facility] en 325 mg en 325 mg 2-15 hen 325 mg Medical tablet 2 tablet 2 00:00: tablet 2 tablets by tablets by 00 tablets by oral route. oral route. oral route. acetaminoph acetaminoph 2021-0 No 2TAB acetaminop [facility] en 325 mg en 325 mg 2-15 hen 325 mg Medical tablet 2 tablet 2 00:00: tablet 2 tablets by tablets by 00 tablets by oral route. oral route. oral route. acetaminoph acetaminoph 2021-0 No 2TAB acetaminop [facility] en 325 mg en 325 mg 2-15 hen 325 mg Medical tablet 2 tablet 2 00:00: tablet 2 tablets by tablets by 00 tablets by oral route. oral route. oral route. acetaminoph acetaminoph 2021-0 No 2TAB acetaminop [facility] en 325 mg en 325 mg 2-15 hen 325 mg Medical tablet 2 tablet 2 00:00: tablet 2 tablets by tablets by 00 tablets by oral route. oral route. oral route. acetaminoph acetaminoph 2021-0 No 2TAB acetaminop [facility] en 325 mg en 325 mg 2-15 hen 325 mg Medical tablet 2 tablet 2 00:00: tablet 2 tablets by tablets by 00 tablets by oral route. oral route. oral route. acetaminoph acetaminoph 2021-0 No 2TAB acetaminop [facility] en 325 mg en 325 mg 2-15 hen 325 mg Medical tablet 2 tablet 2 00:00: tablet 2 tablets by tablets by 00 tablets by oral route. oral route. oral route. acetaminoph acetaminoph 2021-0 No 2TAB acetaminop [facility] en 325 mg en 325 mg 2-15 hen 325 mg Medical tablet 2 tablet 2 00:00: tablet 2 tablets by tablets by 00 tablets by oral route. oral route. oral route. acetaminoph acetaminoph 2021-0 No 2TAB acetaminop [facility] en 325 mg en 325 mg 2-15 hen 325 mg Medical tablet 2 tablet 2 00:00: tablet 2 tablets by tablets by 00 tablets by oral route. oral route. oral route. acetaminoph acetaminoph 2021-0 No 2TAB acetaminop [facility] en 325 mg en 325 mg 2-15 hen 325 mg Medical tablet 2 tablet 2 00:00: tablet 2 tablets by tablets by 00 tablets by oral route. oral route. oral route. acetaminoph acetaminoph No 2capsul Q6H acetaminop [facility] en 325 mg en 325 mg e(s) hen 325 mg Medical capsule capsule capsule Take 2 Take 2 Take 2 capsules capsules capsules every 6 every 6 every 6 hours by hours by hours by oral route oral route oral route as needed. as needed. as needed. aspirin 81 aspirin 81 No 1 Q1D aspirin 81 [facility] mg mg mg Medical tablet,azalea tablet,azalea tablet,del yed release yed release ayed Take 1 Take 1 release tablet tablet Take 1 every day every day tablet by oral by oral every day route. route. by oral route. buspirone 5 buspirone 5 No 1 TID buspirone [facility] mg tablet mg tablet 5 mg Medic al Take 1 Take 1 tablet tablet 3 tablet 3 Take 1 times a day times a day tablet 3 by oral by oral times a route for route for day by 30 days. 30 days. oral route for 30 days. cholecalcif cholecalcif No 1 Q1D cholecalci [facility] nicola nicola ferol Medical (vitamin (vitamin (vitamin D3) 125 mcg D3) 125 mcg D3) 125 (5,000 (5,000 mcg (5,000 unit) unit) unit) tablet Take tablet Take tablet 1 tablet 1 tablet Take 1 every day every day tablet by oral by oral every day route. route. by oral route. divalproex divalproex No divalproex [facility] 125 mg 125 mg 125 mg Medical capsule,del capsule,del capsule,de ayed ayed layed release release release sprinkle sprinkle sprinkle Take 2 Take 2 Take 2 capsules capsules capsules twice a day twice a day twice a by oral by oral day by route for route for oral route 30 days. 30 days. for 30 days. docusate docusate No 1 Q1D docusate [facility] sodium 100 sodium 100 sodium 100 Medical mg tablet mg tablet mg tablet Take 1 Take 1 Take 1 tablet tablet tablet every day every day every day by oral by oral by oral route. route. route. ipratropium ipratropium No 3mL Q6H ipratropiu [facility] 0.5 0.5 m 0.5 Medical mg-albutero mg-albutero mg-albuter l 3 mg (2.5 l 3 mg (2.5 ol 3 mg mg base)/3 mg base)/3 (2.5 mg mL mL base)/3 mL nebulizatio nebulizatio nebulizati n soln n soln on soln Inhale 3 mL Inhale 3 mL Inhale 3 every 6 every 6 mL every 6 hours by hours by hours by nebulizatio nebulizatio nebulizati n route as n route as on route needed. needed. as needed. lactulose lactulose No lactulose [facility] 10 gram/15 10 gram/15 10 gram/15 Medical mL oral mL oral mL oral solution solution solution Take 30 mL Take 30 mL Take 30 mL every day every day every day by oral by oral by oral route at route at route at bedtime. bedtime. bedtime. nystatin nystatin No nystatin [facility] 100,000 100,000 100,000 Medica l unit/gram unit/gram unit/gram topical topical topical cream cream cream simvastatin simvastatin No simvastati [facility] 20 mg 20 mg n 20 mg Medical tablet Take tablet Take tablet 1 tablet 1 tablet Take 1 every day every day tablet by oral by oral every day route at route at by oral bedtime. bedtime. route at bedtime. tramadol 50 tramadol 50 No tramadol [facility] mg tablet mg tablet 50 mg Medi zeke Take 1 Take 1 tablet tablet tablet Take 1 every 8 every 8 tablet hours by hours by every 8 oral route oral route hours by as needed as needed oral route for 30 for 30 as needed days. days. for 30 days. acetaminoph acetaminoph No 2capsul Q6H acetaminop [facility] en 325 mg en 325 mg e(s) hen 325 mg Medical capsule capsule capsule Take 2 Take 2 Take 2 capsules capsules capsules every 6 every 6 every 6 hours by hours by hours by oral route oral route oral route as needed. as needed. as needed. aspirin 81 aspirin 81 No 1 Q1D aspirin 81 [facility] mg mg mg Medical tablet,azalea tablet,azalea tablet,del yed release yed release ayed Take 1 Take 1 release tablet tablet Take 1 every day every day tablet by oral by oral every day route. route. by oral route. buspirone 5 buspirone 5 No 1 TID buspirone [facility] mg tablet mg tablet 5 mg Medic al Take 1 Take 1 tablet tablet 3 tablet 3 Take 1 times a day times a day tablet 3 by oral by oral times a route for route for day by 30 days. 30 days. oral route for 30 days. cholecalcif cholecalcif No 1 Q1D cholecalci [facility] nicola nicola ferol Medical (vitamin (vitamin (vitamin D3) 125 mcg D3) 125 mcg D3) 125 (5,000 (5,000 mcg (5,000 unit) unit) unit) tablet Take tablet Take tablet 1 tablet 1 tablet Take 1 every day every day tablet by oral by oral every day route. route. by oral route. divalproex divalproex No divalproex [facility] 125 mg 125 mg 125 mg Medical capsule,del capsule,del capsule,de ayed ayed layed release release release sprinkle sprinkle sprinkle Take 2 Take 2 Take 2 capsules capsules capsules twice a day twice a day twice a by oral by oral day by route for route for oral route 30 days. 30 days. for 30 days. docusate docusate No 1 Q1D docusate [facility] via sodium 100 sodium 100 sodium 100 Medical mg tablet mg tablet mg tablet Take 1 Take 1 Take 1 tablet tablet tablet every day every day every day by oral by oral by oral route. route. route. ipratropium ipratropium No 3mL Q6H ipratropiu [facility] 0.5 0.5 m 0.5 Medical mg-albutero mg-albutero mg-albuter l 3 mg (2.5 l 3 mg (2.5 ol 3 mg mg base)/3 mg base)/3 (2.5 mg mL mL base)/3 mL nebulizatio nebulizatio nebulizati n soln n soln on soln Inhale 3 mL Inhale 3 mL Inhale 3 every 6 every 6 mL every 6 hours by hours by hours by nebulizatio nebulizatio nebulizati n route as n route as on route needed. needed. as needed. lactulose lactulose No lactulose [facility] 10 gram/15 10 gram/15 10 gram/15 Medical mL oral mL oral mL oral solution solution solution Take 30 mL Take 30 mL Take 30 mL every day every day every day by oral by oral by oral route at route at route at bedtime. bedtime. bedtime. nystatin nystatin No nystatin [facility] 100,000 100,000 100,000 Medica l unit/gram unit/gram unit/gram topical topical topical cream cream cream simvastatin simvastatin No simvastati [facility] 20 mg 20 mg n 20 mg Medical tablet Take tablet Take tablet 1 tablet 1 tablet Take 1 every day every day tablet by oral by oral every day route at route at by oral bedtime. bedtime. route at bedtime. tramadol 50 tramadol 50 No tramadol [facility] mg tablet mg tablet 50 mg Medi zeke Take 1 Take 1 tablet tablet tablet Take 1 every 8 every 8 tablet hours by hours by every 8 oral route oral route hours by as needed as needed oral route for 30 for 30 as needed days. days. for 30 days. acetaminoph acetaminoph No 2capsul Q6H acetaminop [facility] en 325 mg en 325 mg e(s) hen 325 mg Medical capsule capsule capsule Take 2 Take 2 Take 2 capsules capsules capsules every 6 every 6 every 6 hours by hours by hours by oral route oral route oral route as needed. as needed. as needed. aspirin 81 aspirin 81 No 1 Q1D aspirin 81 [facility] mg mg mg Medical tablet,azalea tablet,azalea tablet,del yed release yed release ayed Take 1 Take 1 release tablet tablet Take 1 every day every day tablet by oral by oral every day route. route. by oral route. buspirone 5 buspirone 5 No 1 TID buspirone [facility] mg tablet mg tablet 5 mg Medic al Take 1 Take 1 tablet tablet 3 tablet 3 Take 1 times a day times a day tablet 3 by oral by oral times a route for route for day by 30 days. 30 days. oral route for 30 days. cholecalcif cholecalcif No 1 Q1D cholecalci [facility] nicola nicola ferol Medical (vitamin (vitamin (vitamin D3) 125 mcg D3) 125 mcg D3) 125 (5,000 (5,000 mcg (5,000 unit) unit) unit) tablet Take tablet Take tablet 1 tablet 1 tablet Take 1 every day every day tablet by oral by oral every day route. route. by oral route. divalproex divalproex No divalproex [facility] 125 mg 125 mg 125 mg Medical capsule,del capsule,del capsule,de ayed ayed layed release release release sprinkle sprinkle sprinkle Take 2 Take 2 Take 2 capsules capsules capsules twice a day twice a day twice a by oral by oral day by route for route for oral route 30 days. 30 days. for 30 days. docusate docusate No 1 Q1D docusate [facility] via sodium 100 sodium 100 sodium 100 Medical mg tablet mg tablet mg tablet Take 1 Take 1 Take 1 tablet tablet tablet every day every day every day by oral by oral by oral route. route. route. ipratropium ipratropium No 3mL Q6H ipratropiu [facility] 0.5 0.5 m 0.5 Medical mg-albutero mg-albutero mg-albuter l 3 mg (2.5 l 3 mg (2.5 ol 3 mg mg base)/3 mg base)/3 (2.5 mg mL mL base)/3 mL nebulizatio nebulizatio nebulizati n soln n soln on soln Inhale 3 mL Inhale 3 mL Inhale 3 every 6 every 6 mL every 6 hours by hours by hours by nebulizatio nebulizatio nebulizati n route as n route as on route needed. needed. as needed. lactulose lactulose No lactulose [facility] 10 gram/15 10 gram/15 10 gram/15 Medical mL oral mL oral mL oral solution solution solution Take 30 mL Take 30 mL Take 30 mL every day every day every day by oral by oral by oral route at route at route at bedtime. bedtime. bedtime. nystatin nystatin No nystatin [facility] via 100,000 100,000 100,000 Medica l unit/gram unit/gram unit/gram topical topical topical cream cream cream simvastatin simvastatin No simvastati [facility] 20 mg 20 mg n 20 mg Medical tablet Take tablet Take tablet 1 tablet 1 tablet Take 1 every day every day tablet by oral by oral every day route at route at by oral bedtime. bedtime. route at bedtime. tramadol 50 tramadol 50 No 1 Q8H tramadol [facility] mg tablet mg tablet 50 mg Medi zeke Take 1 Take 1 tablet tablet tablet Take 1 every 8 every 8 tablet hours by hours by every 8 oral route oral route hours by as needed as needed oral route for 30 for 30 as needed days. days. for 30 days. acetaminoph acetaminoph No 2capsul Q6H acetaminop [facility] en 325 mg en 325 mg e(s) hen 325 mg Medical capsule capsule capsule Take 2 Take 2 Take 2 capsules capsules capsules every 6 every 6 every 6 hours by hours by hours by oral route oral route oral route as needed. as needed. as needed. aspirin 81 aspirin 81 No 1 Q1D aspirin 81 [facility] mg mg mg Medical tablet,azalea tablet,azalea tablet,del yed release yed release ayed Take 1 Take 1 release tablet tablet Take 1 every day every day tablet by oral by oral every day route. route. by oral route. buspirone 5 buspirone 5 No 1 TID buspirone [facility] mg tablet mg tablet 5 mg Medic al Take 1 Take 1 tablet tablet 3 tablet 3 Take 1 times a day times a day tablet 3 by oral by oral times a route for route for day by 30 days. 30 days. oral route for 30 days. cholecalcif cholecalcif No 1 Q1D cholecalci [facility] nicola nicola ferol Medical (vitamin (vitamin (vitamin D3) 125 mcg D3) 125 mcg D3) 125 (5,000 (5,000 mcg (5,000 unit) unit) unit) tablet Take tablet Take tablet 1 tablet 1 tablet Take 1 every day every day tablet by oral by oral every day route. route. by oral route. divalproex divalproex No 2capsul BID divalproex [facility] 125 mg 125 mg e(s) 125 mg Medical capsule,del capsule,del capsule,de ayed ayed layed release release release sprinkle sprinkle sprinkle Take 2 Take 2 Take 2 capsules capsules capsules twice a day twice a day twice a by oral by oral day by route for route for oral route 30 days. 30 days. for 30 days. docusate docusate No 1 Q1D docusate [facility] via sodium 100 sodium 100 sodium 100 Medical mg tablet mg tablet mg tablet Take 1 Take 1 Take 1 tablet tablet tablet every day every day every day by oral by oral by oral route. route. route. ipratropium ipratropium No 3mL Q6H ipratropiu [facility] 0.5 0.5 m 0.5 Medical mg-albutero mg-albutero mg-albuter l 3 mg (2.5 l 3 mg (2.5 ol 3 mg mg base)/3 mg base)/3 (2.5 mg mL mL base)/3 mL nebulizatio nebulizatio nebulizati n soln n soln on soln Inhale 3 mL Inhale 3 mL Inhale 3 every 6 every 6 mL every 6 hours by hours by hours by nebulizatio nebulizatio nebulizati n route as n route as on route needed. needed. as needed. lactulose lactulose No 30mL Q1D lactulose [facility] 10 gram/15 10 gram/15 10 gram/15 Medical mL oral mL oral mL oral solution solution solution Take 30 mL Take 30 mL Take 30 mL every day every day every day by oral by oral by oral route at route at route at bedtime. bedtime. bedtime. simvastatin simvastatin No 1 Q1D simvastati [facility] 20 mg 20 mg n 20 mg Medical tablet Take tablet Take tablet 1 tablet 1 tablet Take 1 every day every day tablet by oral by oral every day route at route at by oral bedtime. bedtime. route at bedtime. tramadol 50 tramadol 50 No 1 Q1D tramadol [facility] mg tablet mg tablet 50 mg Medi zeke Take 1 Take 1 tablet tablet tablet Take 1 every day every day tablet by oral by oral every day route at route at by oral bedtime for bedtime for route at 30 days. 30 days. bedtime for 30 days. acetaminoph acetaminoph No 2capsul Q6H acetaminop [facility] en 325 mg en 325 mg e(s) hen 325 mg Medical capsule capsule capsule Take 2 Take 2 Take 2 capsules capsules capsules every 6 every 6 every 6 hours by hours by hours by oral route oral route oral route as needed. as needed. as needed. aspirin 81 aspirin 81 No 1 Q1D aspirin 81 [facility] mg mg mg Medical tablet,azalea tablet,azalea tablet,del yed release yed release ayed Take 1 Take 1 release tablet tablet Take 1 every day every day tablet by oral by oral every day route. route. by oral route. buspirone 5 buspirone 5 No 1 TID buspirone [facility] mg tablet mg tablet 5 mg Medic al Take 1 Take 1 tablet tablet 3 tablet 3 Take 1 times a day times a day tablet 3 by oral by oral times a route for route for day by 30 days. 30 days. oral route for 30 days. cholecalcif cholecalcif No 1 Q1D cholecalci [facility] nicola nicola ferol Medical (vitamin (vitamin (vitamin D3) 125 mcg D3) 125 mcg D3) 125 (5,000 (5,000 mcg (5,000 unit) unit) unit) tablet Take tablet Take tablet 1 tablet 1 tablet Take 1 every day every day tablet by oral by oral every day route. route. by oral route. divalproex divalproex No 2capsul BID divalproex [facility] 125 mg 125 mg e(s) 125 mg Medical capsule,del capsule,del capsule,de ayed ayed layed release release release sprinkle sprinkle sprinkle Take 2 Take 2 Take 2 capsules capsules capsules twice a day twice a day twice a by oral by oral day by route for route for oral route 30 days. 30 days. for 30 days. docusate docusate No 1 Q1D docusate [facility] via sodium 100 sodium 100 sodium 100 Medical mg tablet mg tablet mg tablet Take 1 Take 1 Take 1 tablet tablet tablet every day every day every day by oral by oral by oral route. route. route. ipratropium ipratropium No 3mL Q6H ipratropiu [facility] 0.5 0.5 m 0.5 Medical mg-albutero mg-albutero mg-albuter l 3 mg (2.5 l 3 mg (2.5 ol 3 mg mg base)/3 mg base)/3 (2.5 mg mL mL base)/3 mL nebulizatio nebulizatio nebulizati n soln n soln on soln Inhale 3 mL Inhale 3 mL Inhale 3 every 6 every 6 mL every 6 hours by hours by hours by nebulizatio nebulizatio nebulizati n route as n route as on route needed. needed. as needed. lactulose lactulose No 30mL Q1D lactulose [facility] 10 gram/15 10 gram/15 10 gram/15 Medical mL oral mL oral mL oral solution solution solution Take 30 mL Take 30 mL Take 30 mL every day every day every day by oral by oral by oral route at route at route at bedtime. bedtime. bedtime. simvastatin simvastatin No 1 Q1D simvastati [facility] 20 mg 20 mg n 20 mg Medical tablet Take tablet Take tablet 1 tablet 1 tablet Take 1 every day every day tablet by oral by oral every day route at route at by oral bedtime. bedtime. route at bedtime. tramadol 50 tramadol 50 No 1 Q1D tramadol [facility] mg tablet mg tablet 50 mg Medi zeke Take 1 Take 1 tablet tablet tablet Take 1 every day every day tablet by oral by oral every day route at route at by oral bedtime for bedtime for route at 30 days. 30 days. bedtime for 30 days. acetaminoph acetaminoph No 2capsul Q6H acetaminop [facility] en 325 mg en 325 mg e(s) hen 325 mg Medical capsule capsule capsule Take 2 Take 2 Take 2 capsules capsules capsules every 6 every 6 every 6 hours by hours by hours by oral route oral route oral route as needed. as needed. as needed. aspirin 81 aspirin 81 No 1 Q1D aspirin 81 [facility] mg mg mg Medical tablet,azalea tablet,azalea tablet,del yed release yed release ayed Take 1 Take 1 release tablet tablet Take 1 every day every day tablet by oral by oral every day route. route. by oral route. buspirone 5 buspirone 5 No 1 TID buspirone [facility] mg tablet mg tablet 5 mg Medic al Take 1 Take 1 tablet tablet 3 tablet 3 Take 1 times a day times a day tablet 3 by oral by oral times a route for route for day by 30 days. 30 days. oral route for 30 days. cholecalcif cholecalcif No 1 Q1D cholecalci [facility] nicola nicola ferol Medical (vitamin (vitamin (vitamin D3) 125 mcg D3) 125 mcg D3) 125 (5,000 (5,000 mcg (5,000 unit) unit) unit) tablet Take tablet Take tablet 1 tablet 1 tablet Take 1 every day every day tablet by oral by oral every day route. route. by oral route. divalproex divalproex No 2capsul BID divalproex [facility] 125 mg 125 mg e(s) 125 mg Medical capsule,del capsule,del capsule,de ayed ayed layed release release release sprinkle sprinkle sprinkle Take 2 Take 2 Take 2 capsules capsules capsules twice a day twice a day twice a by oral by oral day by route for route for oral route 30 days. 30 days. for 30 days. docusate docusate No 1 Q1D docusate [facility] via sodium 100 sodium 100 sodium 100 Medical mg tablet mg tablet mg tablet Take 1 Take 1 Take 1 tablet tablet tablet every day every day every day by oral by oral by oral route. route. route. doxycycline doxycycline No doxycyclin [facility] monohydrate monohydrate e M edical 100 mg 100 mg monohydrat capsule capsule e 100 mg capsule ipratropium ipratropium No 3mL Q6H ipratropiu [facility] 0.5 0.5 m 0.5 Medical mg-albutero mg-albutero mg-albuter l 3 mg (2.5 l 3 mg (2.5 ol 3 mg mg base)/3 mg base)/3 (2.5 mg mL mL base)/3 mL nebulizatio nebulizatio nebulizati n soln n soln on soln Inhale 3 mL Inhale 3 mL Inhale 3 every 6 every 6 mL every 6 hours by hours by hours by nebulizatio nebulizatio nebulizati n route as n route as on route needed. needed. as needed. lactulose lactulose No lactulose [facility] 10 gram/15 10 gram/15 10 gram/15 Medical mL oral mL oral mL oral solution solution solution Take 30 mL Take 30 mL Take 30 mL every day every day every day by oral by oral by oral route at route at route at bedtime. bedtime. bedtime. simvastatin simvastatin No 1 Q1D simvastati [facility] 20 mg 20 mg n 20 mg Medical tablet Take tablet Take tablet 1 tablet 1 tablet Take 1 every day every day tablet by oral by oral every day route at route at by oral bedtime. bedtime. route at bedtime. tramadol 50 tramadol 50 No 1 Q8H tramadol [facility] mg tablet mg tablet 50 mg Medi zeke Take 1 Take 1 tablet tablet tablet Take 1 every 8 every 8 tablet hours by hours by every 8 oral route oral route hours by as needed as needed oral route for 10 for 10 as needed days. days. for 10 days. acetaminoph acetaminoph No 2capsul Q6H acetaminop [facility] en 325 mg en 325 mg e(s) hen 325 mg [facility] capsule capsule capsule Take 2 Take 2 Take 2 capsules capsules capsules every 6 every 6 every 6 hours by hours by hours by oral route oral route oral route as needed. as needed. as needed. aspirin 81 aspirin 81 No 1 Q1D aspirin 81 [facility] mg mg mg [facility] tablet,[place] tablet,azalea tablet,del yed release yed release ayed Take 1 Take 1 release tablet tablet Take 1 every day every day tablet by oral by oral every day route. route. by oral route. buspirone 5 buspirone 5 No 1 TID buspirone [facility] mg tablet mg tablet 5 mg [facility] al Take 1 Take 1 tablet tablet 3 tablet 3 Take 1 times a day times a day tablet 3 by oral by oral times a route for route for day by 30 days. 30 days. oral route for 30 days. cholecalcif cholecalcif No 1 Q1D cholecalci [facility] nicola nicola ferol Medical (vitamin (vitamin (vitamin D3) 125 mcg D3) 125 mcg D3) 125 (5,000 (5,000 mcg (5,000 unit) unit) unit) tablet Take tablet Take tablet 1 tablet 1 tablet Take 1 every day every day tablet by oral by oral every day route. route. by oral route. divalproex divalproex No 2capsul BID divalproex [facility] 125 mg 125 mg e(s) 125 mg [facility] capsule,del capsule,del capsule,de ayed ayed layed release release release sprinkle sprinkle sprinkle Take 2 Take 2 Take 2 capsules capsules capsules twice a day twice a day twice a by oral by oral day by route for route for oral route 30 days. 30 days. for 30 days. docusate docusate No 1 Q1D docusate [place] via sodium 100 sodium 100 sodium 100 [facility] mg tablet mg tablet mg tablet Take 1 Take 1 Take 1 tablet tablet tablet every day every day every day by oral by oral by oral route. route. route. ipratropium ipratropium No 3mL Q6H ipratropiu [facility] 0.5 0.5 m 0.5 [facility] mg-albutero mg-albutero mg-albuter l 3 mg (2.5 l 3 mg (2.5 ol 3 mg mg base)/3 mg base)/3 (2.5 mg mL mL base)/3 mL nebulizatio nebulizatio nebulizati n soln n soln on soln Inhale 3 mL Inhale 3 mL Inhale 3 every 6 every 6 mL every 6 hours by hours by hours by nebulizatio nebulizatio nebulizati n route as n route as on route needed. needed. as needed. lactulose lactulose No lactulose [facility] 10 gram/15 10 gram/15 10 gram/15 [facility] mL oral mL oral mL oral solution solution solution Take 30 mL Take 30 mL Take 30 mL every day every day every day by oral by oral by oral route at route at route at bedtime. bedtime. bedtime. simvastatin simvastatin No 1 Q1D simvastati [facility] 20 mg 20 mg n 20 mg [facility] tablet Take tablet Take tablet 1 tablet 1 tablet Take 1 every day every day tablet by oral by oral every day route at route at by oral bedtime. bedtime. route at bedtime. tramadol 50 tramadol 50 No 1 Q8H tramadol [facility] mg tablet mg tablet 50 mg Medi zeke Take 1 Take 1 tablet tablet tablet Take 1 every 8 every 8 tablet hours by hours by every 8 oral route oral route hours by as needed as needed oral route for 10 for 10 as needed days. days. for 10 days. acetaminoph acetaminoph No 2capsul Q6H acetaminop [facility] en 325 mg en 325 mg e(s) hen 325 mg [facility] capsule capsule capsule Take 2 Take 2 Take 2 capsules capsules capsules every 6 every 6 every 6 hours by hours by hours by oral route oral route oral route as needed. as needed. as needed. aspirin 81 aspirin 81 No 1 Q1D aspirin 81 [facility] mg mg mg [facility] tablet,[place] tablet,[place] tablet,del yed release yed release ayed Take 1 Take 1 release tablet tablet Take 1 every day every day tablet by oral by oral every day route. route. by oral route. buspirone 5 buspirone 5 No 1 TID buspirone [facility] mg tablet mg tablet 5 mg [facility] al Take 1 Take 1 tablet tablet 3 tablet 3 Take 1 times a day times a day tablet 3 by oral by oral times a route for route for day by 30 days. 30 days. oral route for 30 days. cholecalcif cholecalcif No 1 Q1D cholecalci [facility] nicola nicola ferol Medical (vitamin (vitamin (vitamin D3) 125 mcg D3) 125 mcg D3) 125 (5,000 (5,000 mcg (5,000 unit) unit) unit) tablet Take tablet Take tablet 1 tablet 1 tablet Take 1 every day every day tablet by oral by oral every day route. route. by oral route. divalproex divalproex No 2capsul BID divalproex [facility] 125 mg 125 mg e(s) 125 mg [facility] capsule,del capsule,del capsule,de ayed ayed layed release release release sprinkle sprinkle sprinkle Take 2 Take 2 Take 2 capsules capsules capsules twice a day twice a day twice a by oral by oral day by route for route for oral route 30 days. 30 days. for 30 days. docusate docusate No 1 Q1D docusate [place] via sodium 100 sodium 100 sodium 100 [facility] mg tablet mg tablet mg tablet Take 1 Take 1 Take 1 tablet tablet tablet every day every day every day by oral by oral by oral route. route. route. ipratropium ipratropium No 3mL Q6H ipratropiu [facility] 0.5 0.5 m 0.5 [facility] mg-albutero mg-albutero mg-albuter l 3 mg (2.5 l 3 mg (2.5 ol 3 mg mg base)/3 mg base)/3 (2.5 mg mL mL base)/3 mL nebulizatio nebulizatio nebulizati n soln n soln on soln Inhale 3 mL Inhale 3 mL Inhale 3 every 6 every 6 mL every 6 hours by hours by hours by nebulizatio nebulizatio nebulizati n route as n route as on route needed. needed. as needed. lactulose lactulose No lactulose [facility] 10 gram/15 10 gram/15 10 gram/15 [facility] mL oral mL oral mL oral solution solution solution Take 30 mL Take 30 mL Take 30 mL every day every day every day by oral by oral by oral route at route at route at bedtime. bedtime. bedtime. simvastatin simvastatin No simvastati [facility] 20 mg 20 mg n 20 mg [facility] tablet Take tablet Take tablet 1 tablet 1 tablet Take 1 every day every day tablet by oral by oral every day route at route at by oral bedtime. bedtime. route at bedtime. tramadol 50 tramadol 50 No tramadol [facility] mg tablet mg tablet 50 mg Medi zeke Take 1 Take 1 tablet tablet tablet Take 1 every 8 every 8 tablet hours by hours by every 8 oral route oral route hours by as needed as needed oral route for 10 for 10 as needed days. days. for 10 days. acetaminoph acetaminoph No 2capsul Q6H acetaminop [facility] en 325 mg en 325 mg e(s) hen 325 mg [facility] capsule capsule capsule Take 2 Take 2 Take 2 capsules capsules capsules every 6 every 6 every 6 hours by hours by hours by oral route oral route oral route as needed. as needed. as needed. aspirin 81 aspirin 81 No 1 Q1D aspirin 81 [facility] mg mg mg [facility] tablet,[place] tablet,[place] tablet,del yed release yed release ayed Take 1 Take 1 release tablet tablet Take 1 every day every day tablet by oral by oral every day route. route. by oral route. buspirone 5 buspirone 5 No 1 TID buspirone [facility] mg tablet mg tablet 5 mg [facility] al Take 1 Take 1 tablet tablet 3 tablet 3 Take 1 times a day times a day tablet 3 by oral by oral times a route for route for day by 30 days. 30 days. oral route for 30 days. cholecalcif cholecalcif No 1 Q1D cholecalci [facility] nicola nicola ferol Medical (vitamin (vitamin (vitamin D3) 125 mcg D3) 125 mcg D3) 125 (5,000 (5,000 mcg (5,000 unit) unit) unit) tablet Take tablet Take tablet 1 tablet 1 tablet Take 1 every day every day tablet by oral by oral every day route. route. by oral route. divalproex divalproex No 2capsul BID divalproex [facility] 125 mg 125 mg e(s) 125 mg [facility] capsule,del capsule,del capsule,de ayed ayed layed release release release sprinkle sprinkle sprinkle Take 2 Take 2 Take 2 capsules capsules capsules twice a day twice a day twice a by oral by oral day by route for route for oral route 30 days. 30 days. for 30 days. docusate docusate No 1 Q1D docusate [place] via sodium 100 sodium 100 sodium 100 [facility] mg tablet mg tablet mg tablet Take 1 Take 1 Take 1 tablet tablet tablet every day every day every day by oral by oral by oral route. route. route. ipratropium ipratropium No 3mL Q6H ipratropiu [facility] 0.5 0.5 m 0.5 [facility] mg-albutero mg-albutero mg-albuter l 3 mg (2.5 l 3 mg (2.5 ol 3 mg mg base)/3 mg base)/3 (2.5 mg mL mL base)/3 mL nebulizatio nebulizatio nebulizati n soln n soln on soln Inhale 3 mL Inhale 3 mL Inhale 3 every 6 every 6 mL every 6 hours by hours by hours by nebulizatio nebulizatio nebulizati n route as n route as on route needed. needed. as needed. lactulose lactulose No lactulose [facility] 10 gram/15 10 gram/15 10 gram/15 [facility] mL oral mL oral mL oral solution solution solution Take 30 mL Take 30 mL Take 30 mL every day every day every day by oral by oral by oral route at route at route at bedtime. bedtime. bedtime. simvastatin simvastatin No simvastati [facility] 20 mg 20 mg n 20 mg [facility] tablet Take tablet Take tablet 1 tablet 1 tablet Take 1 every day every day tablet by oral by oral every day route at route at by oral bedtime. bedtime. route at bedtime. tramadol 50 tramadol 50 No 1 Q8H tramadol [facility] mg tablet mg tablet 50 mg Medi zeke Take 1 Take 1 tablet tablet tablet Take 1 every 8 every 8 tablet hours by hours by every 8 oral route oral route hours by as needed as needed oral route for 30 for 30 as needed days. days. for 30 days. acetaminoph acetaminoph No 2capsul Q6H acetaminop [facility] en 325 mg en 325 mg e(s) hen 325 mg [facility] capsule capsule capsule Take 2 Take 2 Take 2 capsules capsules capsules every 6 every 6 every 6 hours by hours by hours by oral route oral route oral route as needed. as needed. as needed. aspirin 81 aspirin 81 No 1 Q1D aspirin 81 [facility] mg mg mg [facility] tablet,[place] tablet,[place] tablet,del yed release yed release ayed Take 1 Take 1 release tablet tablet Take 1 every day every day tablet by oral by oral every day route. route. by oral route. buspirone 5 buspirone 5 No 1 TID buspirone [facility] mg tablet mg tablet 5 mg [facility] al Take 1 Take 1 tablet tablet 3 tablet 3 Take 1 times a day times a day tablet 3 by oral by oral times a route for route for day by 30 days. 30 days. oral route for 30 days. cholecalcif cholecalcif No 1 Q1D cholecalci [facility] nicola nicola ferol [facility] (vitamin (vitamin (vitamin D3) 125 mcg D3) 125 mcg D3) 125 (5,000 (5,000 mcg (5,000 unit) unit) unit) tablet Take tablet Take tablet 1 tablet 1 tablet Take 1 every day every day tablet by oral by oral every day route. route. by oral route. divalproex divalproex No 2capsul BID divalproex [facility] 125 mg 125 mg e(s) 125 mg [facility] capsule,del capsule,del capsule,de ayed ayed layed release release release sprinkle sprinkle sprinkle Take 2 Take 2 Take 2 capsules capsules capsules twice a day twice a day twice a by oral by oral day by route for route for oral route 30 days. 30 days. for 30 days. docusate docusate No 1 Q1D docusate [place] via sodium 100 sodium 100 sodium 100 [facility] mg tablet mg tablet mg tablet Take 1 Take 1 Take 1 tablet tablet tablet every day every day every day by oral by oral by oral route. route. route. ipratropium ipratropium No 3mL Q6H ipratropiu [facility] 0.5 0.5 m 0.5 [facility] mg-albutero mg-albutero mg-albuter l 3 mg (2.5 l 3 mg (2.5 ol 3 mg mg base)/3 mg base)/3 (2.5 mg mL mL base)/3 mL nebulizatio nebulizatio nebulizati n soln n soln on soln Inhale 3 mL Inhale 3 mL Inhale 3 every 6 every 6 mL every 6 hours by hours by hours by nebulizatio nebulizatio nebulizati n route as n route as on route needed. needed. as needed. lactulose lactulose No lactulose [facility] 10 gram/15 10 gram/15 10 gram/15 [facility] mL oral mL oral mL oral solution solution solution Take 30 mL Take 30 mL Take 30 mL every day every day every day by oral by oral by oral route at route at route at bedtime. bedtime. bedtime. simvastatin simvastatin No simvastati [facility] 20 mg 20 mg n 20 mg [facility] tablet Take tablet Take tablet 1 tablet 1 tablet Take 1 every day every day tablet by oral by oral every day route at route at by oral bedtime. bedtime. route at bedtime. tramadol 50 tramadol 50 No 1 Q8H tramadol [facility] mg tablet mg tablet 50 mg Medi zeke Take 1 Take 1 tablet tablet tablet Take 1 every 8 every 8 tablet hours by hours by every 8 oral route oral route hours by as needed as needed oral route for 30 for 30 as needed days. days. for 30 days. acetaminoph acetaminoph No 2capsul Q6H acetaminop [facility] en 325 mg en 325 mg e(s) hen 325 mg [facility] capsule capsule capsule Take 2 Take 2 Take 2 capsules capsules capsules every 6 every 6 every 6 hours by hours by hours by oral route oral route oral route as needed. as needed. as needed. aspirin 81 aspirin 81 No 1 Q1D aspirin 81 [facility] mg mg mg [facility] tablet,[place] tablet,[place] tablet,del yed release yed release ayed Take 1 Take 1 release tablet tablet Take 1 every day every day tablet by oral by oral every day route. route. by oral route. buspirone 5 buspirone 5 No 1 TID buspirone [facility] mg tablet mg tablet 5 mg [facility] al Take 1 Take 1 tablet tablet 3 tablet 3 Take 1 times a day times a day tablet 3 by oral by oral times a route for route for day by 30 days. 30 days. oral route for 30 days. cholecalcif cholecalcif No 1 Q1D cholecalci [facility] nicola nicola ferol [facility] (vitamin (vitamin (vitamin D3) 125 mcg D3) 125 mcg D3) 125 (5,000 (5,000 mcg (5,000 unit) unit) unit) tablet Take tablet Take tablet 1 tablet 1 tablet Take 1 every day every day tablet by oral by oral every day route. route. by oral route. divalproex divalproex No 2capsul BID divalproex [facility] 125 mg 125 mg e(s) 125 mg [facility] capsule,del capsule,del capsule,de ayed ayed layed release release release sprinkle sprinkle sprinkle Take 2 Take 2 Take 2 capsules capsules capsules twice a day twice a day twice a by oral by oral day by route for route for oral route 30 days. 30 days. for 30 days. docusate docusate No 1 Q1D docusate [place] via sodium 100 sodium 100 sodium 100 [facility] mg tablet mg tablet mg tablet Take 1 Take 1 Take 1 tablet tablet tablet every day every day every day by oral by oral by oral route. route. route. ipratropium ipratropium No 3mL Q6H ipratropiu [facility] 0.5 0.5 m 0.5 [facility] mg-albutero mg-albutero mg-albuter l 3 mg (2.5 l 3 mg (2.5 ol 3 mg mg base)/3 mg base)/3 (2.5 mg mL mL base)/3 mL nebulizatio nebulizatio nebulizati n soln n soln on soln Inhale 3 mL Inhale 3 mL Inhale 3 every 6 every 6 mL every 6 hours by hours by hours by nebulizatio nebulizatio nebulizati n route as n route as on route needed. needed. as needed. lactulose lactulose No lactulose [facility] 10 gram/15 10 gram/15 10 gram/15 [facility] mL oral mL oral mL oral solution solution solution Take 30 mL Take 30 mL Take 30 mL every day every day every day by oral by oral by oral route at route at route at bedtime. bedtime. bedtime. simvastatin simvastatin No simvastati [facility] 20 mg 20 mg n 20 mg [facility] tablet Take tablet Take tablet 1 tablet 1 tablet Take 1 every day every day tablet by oral by oral every day route at route at by oral bedtime. bedtime. route at bedtime. tramadol 50 tramadol 50 No 1 Q8H tramadol [facility] mg tablet mg tablet 50 mg Medi zeke Take 1 Take 1 tablet tablet tablet Take 1 every 8 every 8 tablet hours by hours by every 8 oral route oral route hours by as needed as needed oral route for 30 for 30 as needed days. days. for 30 days. acetaminoph acetaminoph No 2capsul Q6H acetaminop [facility] en 325 mg en 325 mg e(s) hen 325 mg [facility] capsule capsule capsule Take 2 Take 2 Take 2 capsules capsules capsules every 6 every 6 every 6 hours by hours by hours by oral route oral route oral route as needed. as needed. as needed. aspirin 81 aspirin 81 No 1 Q1D aspirin 81 [facility] mg mg mg [facility] tablet,[place] tablet,[place] tablet,del yed release yed release ayed Take 1 Take 1 release tablet tablet Take 1 every day every day tablet by oral by oral every day route. route. by oral route. buspirone 5 buspirone 5 No 1 TID buspirone [facility] mg tablet mg tablet 5 mg [facility] al Take 1 Take 1 tablet tablet 3 tablet 3 Take 1 times a day times a day tablet 3 by oral by oral times a route for route for day by 30 days. 30 days. oral route for 30 days. cholecalcif cholecalcif No 1 Q1D cholecalci [facility] nicola nicola ferol [facility] (vitamin (vitamin (vitamin D3) 125 mcg D3) 125 mcg D3) 125 (5,000 (5,000 mcg (5,000 unit) unit) unit) tablet Take tablet Take tablet 1 tablet 1 tablet Take 1 every day every day tablet by oral by oral every day route. route. by oral route. divalproex divalproex No 2capsul BID divalproex [facility] 125 mg 125 mg e(s) 125 mg [facility] capsule,del capsule,del capsule,de ayed ayed layed release release release sprinkle sprinkle sprinkle Take 2 Take 2 Take 2 capsules capsules capsules twice a day twice a day twice a by oral by oral day by route for route for oral route 30 days. 30 days. for 30 days. docusate docusate No 1 Q1D docusate [place] via sodium 100 sodium 100 sodium 100 [facility] mg tablet mg tablet mg tablet Take 1 Take 1 Take 1 tablet tablet tablet every day every day every day by oral by oral by oral route. route. route. ipratropium ipratropium No 3mL Q6H ipratropiu [facility] 0.5 0.5 m 0.5 [facility] mg-albutero mg-albutero mg-albuter l 3 mg (2.5 l 3 mg (2.5 ol 3 mg mg base)/3 mg base)/3 (2.5 mg mL mL base)/3 mL nebulizatio nebulizatio nebulizati n soln n soln on soln Inhale 3 mL Inhale 3 mL Inhale 3 every 6 every 6 mL every 6 hours by hours by hours by nebulizatio nebulizatio nebulizati n route as n route as on route needed. needed. as needed. lactulose lactulose No lactulose [facility] 10 gram/15 10 gram/15 10 gram/15 [facility] mL oral mL oral mL oral solution solution solution Take 30 mL Take 30 mL Take 30 mL every day every day every day by oral by oral by oral route at route at route at bedtime. bedtime. bedtime. simvastatin simvastatin No simvastati [facility] 20 mg 20 mg n 20 mg [facility] tablet Take tablet Take tablet 1 tablet 1 tablet Take 1 every day every day tablet by oral by oral every day route at route at by oral bedtime. bedtime. route at bedtime. tramadol 50 tramadol 50 No 1 Q8H tramadol [facility] mg tablet mg tablet 50 mg Medi zeke Take 1 Take 1 tablet tablet tablet Take 1 every 8 every 8 tablet hours by hours by every 8 oral route oral route hours by as needed as needed oral route for 30 for 30 as needed days. days. for 30 days. acetaminoph acetaminoph No 2capsul Q6H acetaminop [facility] en 325 mg en 325 mg e(s) hen 325 mg [facility] capsule capsule capsule Take 2 Take 2 Take 2 capsules capsules capsules every 6 every 6 every 6 hours by hours by hours by oral route oral route oral route as needed. as needed. as needed. aspirin 81 aspirin 81 No 1 Q1D aspirin 81 [facility] mg mg mg [facility] tablet,[place] tablet,[place] tablet,del yed release yed release ayed Take 1 Take 1 release tablet tablet Take 1 every day every day tablet by oral by oral every day route. route. by oral route. buspirone 5 buspirone 5 No 1 TID buspirone [facility] mg tablet mg tablet 5 mg [facility] al Take 1 Take 1 tablet tablet 3 tablet 3 Take 1 times a day times a day tablet 3 by oral by oral times a route for route for day by 30 days. 30 days. oral route for 30 days. cholecalcif cholecalcif No 1 Q1D cholecalci [facility] nicola nicola ferol [facility] (vitamin (vitamin (vitamin D3) 125 mcg D3) 125 mcg D3) 125 (5,000 (5,000 mcg (5,000 unit) unit) unit) tablet Take tablet Take tablet 1 tablet 1 tablet Take 1 every day every day tablet by oral by oral every day route. route. by oral route. divalproex divalproex No divalproex [facility] 125 mg 125 mg 125 mg [facility] capsule,del capsule,del capsule,de ayed ayed layed release release release sprinkle sprinkle sprinkle Take 2 Take 2 Take 2 capsules capsules capsules twice a day twice a day twice a by oral by oral day by route for route for oral route 30 days. 30 days. for 30 days. docusate docusate No 1 Q1D docusate [place] via sodium 100 sodium 100 sodium 100 Medical mg tablet mg tablet mg tablet Take 1 Take 1 Take 1 tablet tablet tablet every day every day every day by oral by oral by oral route. route. route. ipratropium ipratropium No 3mL Q6H ipratropiu [facility] 0.5 0.5 m 0.5 [facility] mg-albutero mg-albutero mg-albuter l 3 mg (2.5 l 3 mg (2.5 ol 3 mg mg base)/3 mg base)/3 (2.5 mg mL mL base)/3 mL nebulizatio nebulizatio nebulizati n soln n soln on soln Inhale 3 mL Inhale 3 mL Inhale 3 every 6 every 6 mL every 6 hours by hours by hours by nebulizatio nebulizatio nebulizati n route as n route as on route needed. needed. as needed. lactulose lactulose No lactulose [facility] 10 gram/15 10 gram/15 10 gram/15 [facility] mL oral mL oral mL oral solution solution solution Take 30 mL Take 30 mL Take 30 mL every day every day every day by oral by oral by oral route at route at route at bedtime. bedtime. bedtime. simvastatin simvastatin No simvastati [facility] 20 mg 20 mg n 20 mg [facility] tablet Take tablet Take tablet 1 tablet 1 tablet Take 1 every day every day tablet by oral by oral every day route at route at by oral bedtime. bedtime. route at bedtime. tramadol 50 tramadol 50 No tramadol [facility] mg tablet mg tablet 50 mg Medi zeke Take 1 Take 1 tablet tablet tablet Take 1 every 8 every 8 tablet hours by hours by every 8 oral route oral route hours by as needed as needed oral route for 30 for 30 as needed days. days. for 30 days. acetaminoph acetaminoph No 2capsul Q6H acetaminop [facility] en 325 mg en 325 mg e(s) hen 325 mg [facility] capsule capsule capsule Take 2 Take 2 Take 2 capsules capsules capsules every 6 every 6 every 6 hours by hours by hours by oral route oral route oral route as needed. as needed. as needed. aspirin 81 aspirin 81 No 1 Q1D aspirin 81 [facility] mg mg mg [facility] tablet,[place] tablet,[place] tablet,del yed release yed release ayed Take 1 Take 1 release tablet tablet Take 1 every day every day tablet by oral by oral every day route. route. by oral route. buspirone 5 buspirone 5 No 1 TID buspirone [facility] mg tablet mg tablet 5 mg [facility] al Take 1 Take 1 tablet tablet 3 tablet 3 Take 1 times a day times a day tablet 3 by oral by oral times a route for route for day by 30 days. 30 days. oral route for 30 days. cholecalcif cholecalcif No 1 Q1D cholecalci [facility] nicola nicola ferol [facility] (vitamin (vitamin (vitamin D3) 125 mcg D3) 125 mcg D3) 125 (5,000 (5,000 mcg (5,000 unit) unit) unit) tablet Take tablet Take tablet 1 tablet 1 tablet Take 1 every day every day tablet by oral by oral every day route. route. by oral route. divalproex divalproex No divalproex [facility] 125 mg 125 mg 125 mg [facility] capsule,del capsule,del capsule,de ayed ayed layed release release release sprinkle sprinkle sprinkle Take 2 Take 2 Take 2 capsules capsules capsules twice a day twice a day twice a by oral by oral day by route for route for oral route 30 days. 30 days. for 30 days. docusate docusate No 1 Q1D docusate [place] via sodium 100 sodium 100 sodium 100 Medical mg tablet mg tablet mg tablet Take 1 Take 1 Take 1 tablet tablet tablet every day every day every day by oral by oral by oral route. route. route. ipratropium ipratropium No 3mL Q6H ipratropiu [facility] 0.5 0.5 m 0.5 [facility] mg-albutero mg-albutero mg-albuter l 3 mg (2.5 l 3 mg (2.5 ol 3 mg mg base)/3 mg base)/3 (2.5 mg mL mL base)/3 mL nebulizatio nebulizatio nebulizati n soln n soln on soln Inhale 3 mL Inhale 3 mL Inhale 3 every 6 every 6 mL every 6 hours by hours by hours by nebulizatio nebulizatio nebulizati n route as n route as on route needed. needed. as needed. lactulose lactulose No lactulose [facility] 10 gram/15 10 gram/15 10 gram/15 [facility] mL oral mL oral mL oral solution solution solution Take 30 mL Take 30 mL Take 30 mL every day every day every day by oral by oral by oral route at route at route at bedtime. bedtime. bedtime. simvastatin simvastatin No simvastati [facility] 20 mg 20 mg n 20 mg [facility] tablet Take tablet Take tablet 1 tablet 1 tablet Take 1 every day every day tablet by oral by oral every day route at route at by oral bedtime. bedtime. route at bedtime. tramadol 50 tramadol 50 No 1 Q8H tramadol [facility] mg tablet mg tablet 50 mg Medi zeke Take 1 Take 1 tablet tablet tablet Take 1 every 8 every 8 tablet hours by hours by every 8 oral route oral route hours by as needed as needed oral route for 30 for 30 as needed days. days. for 30 days. acetaminoph acetaminoph No 2capsul Q6H acetaminop [facility] en 325 mg en 325 mg e(s) hen 325 mg [facility] capsule capsule capsule Take 2 Take 2 Take 2 capsules capsules capsules every 6 every 6 every 6 hours by hours by hours by oral route oral route oral route as needed. as needed. as needed. aspirin 81 aspirin 81 No 1 Q1D aspirin 81 [facility] mg mg mg [facility] tablet,[place] tablet,[place] tablet,del yed release yed release ayed Take 1 Take 1 release tablet tablet Take 1 every day every day tablet by oral by oral every day route. route. by oral route. buspirone 5 buspirone 5 No 1 TID buspirone [facility] mg tablet mg tablet 5 mg [facility] al Take 1 Take 1 tablet tablet 3 tablet 3 Take 1 times a day times a day tablet 3 by oral by oral times a route for route for day by 30 days. 30 days. oral route for 30 days. cholecalcif cholecalcif No 1 Q1D cholecalci [facility] nicola nicola ferol [facility] (vitamin (vitamin (vitamin D3) 125 mcg D3) 125 mcg D3) 125 (5,000 (5,000 mcg (5,000 unit) unit) unit) tablet Take tablet Take tablet 1 tablet 1 tablet Take 1 every day every day tablet by oral by oral every day route. route. by oral route. divalproex divalproex No divalproex [facility] 125 mg 125 mg 125 mg [facility] capsule,del capsule,del capsule,de ayed ayed layed release release release sprinkle sprinkle sprinkle Take 2 Take 2 Take 2 capsules capsules capsules twice a day twice a day twice a by oral by oral day by route for route for oral route 30 days. 30 days. for 30 days. docusate docusate No 1 Q1D docusate [place] via sodium 100 sodium 100 sodium 100 [facility] mg tablet mg tablet mg tablet Take 1 Take 1 Take 1 tablet tablet tablet every day every day every day by oral by oral by oral route. route. route. ipratropium ipratropium No 3mL Q6H ipratropiu [facility] 0.5 0.5 m 0.5 [facility] mg-albutero mg-albutero mg-albuter l 3 mg (2.5 l 3 mg (2.5 ol 3 mg mg base)/3 mg base)/3 (2.5 mg mL mL base)/3 mL nebulizatio nebulizatio nebulizati n soln n soln on soln Inhale 3 mL Inhale 3 mL Inhale 3 every 6 every 6 mL every 6 hours by hours by hours by nebulizatio nebulizatio nebulizati n route as n route as on route needed. needed. as needed. lactulose lactulose No lactulose [facility] 10 gram/15 10 gram/15 10 gram/15 [facility] mL oral mL oral mL oral solution solution solution Take 30 mL Take 30 mL Take 30 mL every day every day every day by oral by oral by oral route at route at route at bedtime. bedtime. bedtime. simvastatin simvastatin No simvastati [facility] 20 mg 20 mg n 20 mg [facility] tablet Take tablet Take tablet 1 tablet 1 tablet Take 1 every day every day tablet by oral by oral every day route at route at by oral bedtime. bedtime. route at bedtime. tramadol 50 tramadol 50 No 1 Q8H tramadol [facility] mg tablet mg tablet 50 mg Medi zeke Take 1 Take 1 tablet tablet tablet Take 1 every 8 every 8 tablet hours by hours by every 8 oral route oral route hours by as needed as needed oral route for 30 for 30 as needed days. days. for 30 days. acetaminoph acetaminoph No 2capsul Q6H acetaminop [facility] en 325 mg en 325 mg e(s) hen 325 mg [facility] capsule capsule capsule Take 2 Take 2 Take 2 capsules capsules capsules every 6 every 6 every 6 hours by hours by hours by oral route oral route oral route as needed. as needed. as needed. aspirin 81 aspirin 81 No 1 Q1D aspirin 81 [facility] mg mg mg [facility] tablet,[place] tablet,[place] tablet,del yed release yed release ayed Take 1 Take 1 release tablet tablet Take 1 every day every day tablet by oral by oral every day route. route. by oral route. buspirone 5 buspirone 5 No 1 TID buspirone [facility] mg tablet mg tablet 5 mg [facility] al Take 1 Take 1 tablet tablet 3 tablet 3 Take 1 times a day times a day tablet 3 by oral by oral times a route for route for day by 30 days. 30 days. oral route for 30 days. cholecalcif cholecalcif No 1 Q1D cholecalci [facility] nicola nicola ferol [facility] (vitamin (vitamin (vitamin D3) 125 mcg D3) 125 mcg D3) 125 (5,000 (5,000 mcg (5,000 unit) unit) unit) tablet Take tablet Take tablet 1 tablet 1 tablet Take 1 every day every day tablet by oral by oral every day route. route. by oral route. divalproex divalproex No divalproex [facility] 125 mg 125 mg 125 mg [facility] capsule,del capsule,del capsule,de ayed ayed layed release release release sprinkle sprinkle sprinkle Take 2 Take 2 Take 2 capsules capsules capsules twice a day twice a day twice a by oral by oral day by route for route for oral route 30 days. 30 days. for 30 days. docusate docusate No 1 Q1D docusate [place] via sodium 100 sodium 100 sodium 100 [facility] mg tablet mg tablet mg tablet Take 1 Take 1 Take 1 tablet tablet tablet every day every day every day by oral by oral by oral route. route. route. ipratropium ipratropium No 3mL Q6H ipratropiu [facility] 0.5 0.5 m 0.5 [facility] mg-albutero mg-albutero mg-albuter l 3 mg (2.5 l 3 mg (2.5 ol 3 mg mg base)/3 mg base)/3 (2.5 mg mL mL base)/3 mL nebulizatio nebulizatio nebulizati n soln n soln on soln Inhale 3 mL Inhale 3 mL Inhale 3 every 6 every 6 mL every 6 hours by hours by hours by nebulizatio nebulizatio nebulizati n route as n route as on route needed. needed. as needed. lactulose lactulose No lactulose [facility] 10 gram/15 10 gram/15 10 gram/15 [facility] mL oral mL oral mL oral solution solution solution Take 30 mL Take 30 mL Take 30 mL every day every day every day by oral by oral by oral route at route at route at bedtime. bedtime. bedtime. simvastatin simvastatin No simvastati [facility] 20 mg 20 mg n 20 mg [facility] tablet Take tablet Take tablet 1 tablet 1 tablet Take 1 every day every day tablet by oral by oral every day route at route at by oral bedtime. bedtime. route at bedtime. tramadol 50 tramadol 50 No 1 Q8H tramadol [facility] mg tablet mg tablet 50 mg Medi zeke Take 1 Take 1 tablet tablet tablet Take 1 every 8 every 8 tablet hours by hours by every 8 oral route oral route hours by as needed as needed oral route for 30 for 30 as needed days. days. for 30 days. acetaminoph acetaminoph No 2capsul Q6H acetaminop [facility] en 325 mg en 325 mg e(s) hen 325 mg [facility] capsule capsule capsule Take 2 Take 2 Take 2 capsules capsules capsules every 6 every 6 every 6 hours by hours by hours by oral route oral route oral route as needed. as needed. as needed. aspirin 81 aspirin 81 No 1 Q1D aspirin 81 [facility] mg mg mg [facility] tablet,[place] tablet,[place] tablet,del yed release yed release ayed Take 1 Take 1 release tablet tablet Take 1 every day every day tablet by oral by oral every day route. route. by oral route. buspirone 5 buspirone 5 No 1 TID buspirone [facility] mg tablet mg tablet 5 mg [facility] al Take 1 Take 1 tablet tablet 3 tablet 3 Take 1 times a day times a day tablet 3 by oral by oral times a route for route for day by 30 days. 30 days. oral route for 30 days. cholecalcif cholecalcif No 1 Q1D cholecalci [facility] nicola nicola ferol [facility] (vitamin (vitamin (vitamin D3) 125 mcg D3) 125 mcg D3) 125 (5,000 (5,000 mcg (5,000 unit) unit) unit) tablet Take tablet Take tablet 1 tablet 1 tablet Take 1 every day every day tablet by oral by oral every day route. route. by oral route. divalproex divalproex No divalproex [facility] 125 mg 125 mg 125 mg [facility] capsule,del capsule,del capsule,de ayed ayed layed release release release sprinkle sprinkle sprinkle Take 2 Take 2 Take 2 capsules capsules capsules twice a day twice a day twice a by oral by oral day by route for route for oral route 30 days. 30 days. for 30 days. docusate docusate No 1 Q1D docusate [place] via sodium 100 sodium 100 sodium 100 [facility] mg tablet mg tablet mg tablet Take 1 Take 1 Take 1 tablet tablet tablet every day every day every day by oral by oral by oral route. route. route. ipratropium ipratropium No 3mL Q6H ipratropiu [facility] 0.5 0.5 m 0.5 [facility] mg-albutero mg-albutero mg-albuter l 3 mg (2.5 l 3 mg (2.5 ol 3 mg mg base)/3 mg base)/3 (2.5 mg mL mL base)/3 mL nebulizatio nebulizatio nebulizati n soln n soln on soln Inhale 3 mL Inhale 3 mL Inhale 3 every 6 every 6 mL every 6 hours by hours by hours by nebulizatio nebulizatio nebulizati n route as n route as on route needed. needed. as needed. lactulose lactulose No lactulose [facility] 10 gram/15 10 gram/15 10 gram/15 [facility] mL oral mL oral mL oral solution solution solution Take 30 mL Take 30 mL Take 30 mL every day every day every day by oral by oral by oral route at route at route at bedtime. bedtime. bedtime. simvastatin simvastatin No simvastati [facility] 20 mg 20 mg n 20 mg [facility] tablet Take tablet Take tablet 1 tablet 1 tablet Take 1 every day every day tablet by oral by oral every day route at route at by oral bedtime. bedtime. route at bedtime. tramadol 50 tramadol 50 No tramadol [facility] mg tablet mg tablet 50 mg Medi zeke Take 1 Take 1 tablet tablet tablet Take 1 every 8 every 8 tablet hours by hours by every 8 oral route oral route hours by as needed as needed oral route for 30 for 30 as needed days. days. for 30 days. acetaminoph acetaminoph No 2capsul Q6H acetaminop [facility] en 325 mg en 325 mg e(s) hen 325 mg [facility] capsule capsule capsule Take 2 Take 2 Take 2 capsules capsules capsules every 6 every 6 every 6 hours by hours by hours by oral route oral route oral route as needed. as needed. as needed. aspirin 81 aspirin 81 No 1 Q1D aspirin 81 [facility] mg mg mg [facility] tablet,[place] tablet,[place] tablet,del yed release yed release ayed Take 1 Take 1 release tablet tablet Take 1 every day every day tablet by oral by oral every day route. route. by oral route. buspirone 5 buspirone 5 No buspirone [facility] mg tablet mg tablet 5 mg [facility] al Take 1 Take 1 tablet tablet 3 tablet 3 Take 1 times a day times a day tablet 3 by oral by oral times a route for route for day by 30 days. 30 days. oral route for 30 days. cholecalcif cholecalcif No 1 Q1D cholecalci [facility] nicola nicola ferol [facility] (vitamin (vitamin (vitamin D3) 125 mcg D3) 125 mcg D3) 125 (5,000 (5,000 mcg (5,000 unit) unit) unit) tablet Take tablet Take tablet 1 tablet 1 tablet Take 1 every day every day tablet by oral by oral every day route. route. by oral route. divalproex divalproex No divalproex [facility] 125 mg 125 mg 125 mg [facility] capsule,del capsule,del capsule,de ayed ayed layed release release release sprinkle sprinkle sprinkle Take 2 Take 2 Take 2 capsules capsules capsules twice a day twice a day twice a by oral by oral day by route for route for oral route 30 days. 30 days. for 30 days. docusate docusate No 1 Q1D docusate [place] via sodium 100 sodium 100 sodium 100 [facility] mg tablet mg tablet mg tablet Take 1 Take 1 Take 1 tablet tablet tablet every day every day every day by oral by oral by oral route. route. route. ipratropium ipratropium No 3mL Q6H ipratropiu [facility] 0.5 0.5 m 0.5 [facility] mg-albutero mg-albutero mg-albuter l 3 mg (2.5 l 3 mg (2.5 ol 3 mg mg base)/3 mg base)/3 (2.5 mg mL mL base)/3 mL nebulizatio nebulizatio nebulizati n soln n soln on soln Inhale 3 mL Inhale 3 mL Inhale 3 every 6 every 6 mL every 6 hours by hours by hours by nebulizatio nebulizatio nebulizati n route as n route as on route needed. needed. as needed. lactulose lactulose No lactulose [facility] 10 gram/15 10 gram/15 10 gram/15 [facility] mL oral mL oral mL oral solution solution solution Take 30 mL Take 30 mL Take 30 mL every day every day every day by oral by oral by oral route at route at route at bedtime. bedtime. bedtime. nystatin nystatin No nystatin [place] via 100,000 100,000 100,000 [facility] l unit/gram unit/gram unit/gram topical topical topical cream cream cream simvastatin simvastatin No simvastati [facility] 20 mg 20 mg n 20 mg [facility] tablet Take tablet Take tablet 1 tablet 1 tablet Take 1 every day every day tablet by oral by oral every day route at route at by oral bedtime. bedtime. route at bedtime. tramadol 50 tramadol 50 No tramadol [facility] mg tablet mg tablet 50 mg Medi zeke Take 1 Take 1 tablet tablet tablet Take 1 every 8 every 8 tablet hours by hours by every 8 oral route oral route hours by as needed as needed oral route for 30 for 30 as needed days. days. for 30 days. acetaminoph acetaminoph No 2capsul Q6H acetaminop [facility] en 325 mg en 325 mg e(s) hen 325 mg [facility] capsule capsule capsule Take 2 Take 2 Take 2 capsules capsules capsules every 6 every 6 every 6 hours by hours by hours by oral route oral route oral route as needed. as needed. as needed. aspirin 81 aspirin 81 No 1 Q1D aspirin 81 [facility] mg mg mg [facility] tablet,[place] tablet,[place] tablet,del yed release yed release ayed Take 1 Take 1 release tablet tablet Take 1 every day every day tablet by oral by oral every day route. route. by oral route. buspirone 5 buspirone 5 No buspirone [facility] mg tablet mg tablet 5 mg [facility] al Take 1 Take 1 tablet tablet 3 tablet 3 Take 1 times a day times a day tablet 3 by oral by oral times a route for route for day by 30 days. 30 days. oral route for 30 days. cholecalcif cholecalcif No 1 Q1D cholecalci [facility] nicola nicola ferol [facility] (vitamin (vitamin (vitamin D3) 125 mcg D3) 125 mcg D3) 125 (5,000 (5,000 mcg (5,000 unit) unit) unit) tablet Take tablet Take tablet 1 tablet 1 tablet Take 1 every day every day tablet by oral by oral every day route. route. by oral route. divalproex divalproex No divalproex [facility] 125 mg 125 mg 125 mg [facility] capsule,del capsule,del capsule,de ayed ayed layed release release release sprinkle sprinkle sprinkle Take 2 Take 2 Take 2 capsules capsules capsules twice a day twice a day twice a by oral by oral day by route for route for oral route 30 days. 30 days. for 30 days. docusate docusate No 1 Q1D docusate [place] via sodium 100 sodium 100 sodium 100 [facility] mg tablet mg tablet mg tablet Take 1 Take 1 Take 1 tablet tablet tablet every day every day every day by oral by oral by oral route. route. route. ipratropium ipratropium No 3mL Q6H ipratropiu [facility] 0.5 0.5 m 0.5 [facility] mg-albutero mg-albutero mg-albuter l 3 mg (2.5 l 3 mg (2.5 ol 3 mg mg base)/3 mg base)/3 (2.5 mg mL mL base)/3 mL nebulizatio nebulizatio nebulizati n soln n soln on soln Inhale 3 mL Inhale 3 mL Inhale 3 every 6 every 6 mL every 6 hours by hours by hours by nebulizatio nebulizatio nebulizati n route as n route as on route needed. needed. as needed. lactulose lactulose No lactulose [facility] 10 gram/15 10 gram/15 10 gram/15 [facility] mL oral mL oral mL oral solution solution solution Take 30 mL Take 30 mL Take 30 mL every day every day every day by oral by oral by oral route at route at route at bedtime. bedtime. bedtime. nystatin nystatin No nystatin [place] via 100,000 100,000 100,000 Med[facility] l unit/gram unit/gram unit/gram topical topical topical cream cream cream simvastatin simvastatin No simvastati [facility] 20 mg 20 mg n 20 mg [facility] tablet Take tablet Take tablet 1 tablet 1 tablet Take 1 every day every day tablet by oral by oral every day route at route at by oral bedtime. bedtime. route at bedtime. tramadol 50 tramadol 50 No 1 Q8H tramadol [facility] mg tablet mg tablet 50 mg Medi zeke Take 1 Take 1 tablet tablet tablet Take 1 every 8 every 8 tablet hours by hours by every 8 oral route oral route hours by for 30 for 30 oral route days. days. for 30 days. acetaminoph acetaminoph No 2capsul Q6H acetaminop [facility] en 325 mg en 325 mg e(s) hen 325 mg [facility] capsule capsule capsule Take 2 Take 2 Take 2 capsules capsules capsules every 6 every 6 every 6 hours by hours by hours by oral route oral route oral route as needed. as needed. as needed. aspirin 81 aspirin 81 No 1 Q1D aspirin 81 [facility] mg mg mg [facility] tablet,[place] tablet,[place] tablet,del yed release yed release ayed Take 1 Take 1 release tablet tablet Take 1 every day every day tablet by oral by oral every day route. route. by oral route. buspirone 5 buspirone 5 No buspirone [facility] mg tablet mg tablet 5 mg [facility] al Take 1 Take 1 tablet tablet 3 tablet 3 Take 1 times a day times a day tablet 3 by oral by oral times a route for route for day by 30 days. 30 days. oral route for 30 days. cholecalcif cholecalcif No 1 Q1D cholecalci [facility] nicola nicola ferol [facility] (vitamin (vitamin (vitamin D3) 125 mcg D3) 125 mcg D3) 125 (5,000 (5,000 mcg (5,000 unit) unit) unit) tablet Take tablet Take tablet 1 tablet 1 tablet Take 1 every day every day tablet by oral by oral every day route. route. by oral route. divalproex divalproex No divalproex [facility] 125 mg 125 mg 125 mg [facility] capsule,del capsule,del capsule,de ayed ayed layed release release release sprinkle sprinkle sprinkle Take 2 Take 2 Take 2 capsules capsules capsules twice a day twice a day twice a by oral by oral day by route for route for oral route 30 days. 30 days. for 30 days. docusate docusate No 1 Q1D docusate [place] via sodium 100 sodium 100 sodium 100 [facility] mg tablet mg tablet mg tablet Take 1 Take 1 Take 1 tablet tablet tablet every day every day every day by oral by oral by oral route. route. route. ipratropium ipratropium No 3mL Q6H ipratropiu [facility] 0.5 0.5 m 0.5 [facility] mg-albutero mg-albutero mg-albuter l 3 mg (2.5 l 3 mg (2.5 ol 3 mg mg base)/3 mg base)/3 (2.5 mg mL mL base)/3 mL nebulizatio nebulizatio nebulizati n soln n soln on soln Inhale 3 mL Inhale 3 mL Inhale 3 every 6 every 6 mL every 6 hours by hours by hours by nebulizatio nebulizatio nebulizati n route as n route as on route needed. needed. as needed. lactulose lactulose No lactulose [facility] 10 gram/15 10 gram/15 10 gram/15 [facility] mL oral mL oral mL oral solution solution solution Take 30 mL Take 30 mL Take 30 mL every day every day every day by oral by oral by oral route at route at route at bedtime. bedtime. bedtime. nystatin nystatin No nystatin [place] via 100,000 100,000 100,000 [facility] l unit/gram unit/gram unit/gram topical topical topical cream cream cream simvastatin simvastatin No simvastati [facility] 20 mg 20 mg n 20 mg [facility] tablet Take tablet Take tablet 1 tablet 1 tablet Take 1 every day every day tablet by oral by oral every day route at route at by oral bedtime. bedtime. route at bedtime. tramadol 50 tramadol 50 No 1 Q8H tramadol [facility] mg tablet mg tablet 50 mg Medi zeke Take 1 Take 1 tablet tablet tablet Take 1 every 8 every 8 tablet hours by hours by every 8 oral route oral route hours by for 30 for 30 oral route days. days. for 30 days. acetaminoph acetaminoph No 2capsul Q6H acetaminop [facility] en 325 mg en 325 mg e(s) hen 325 mg [facility] capsule capsule capsule Take 2 Take 2 Take 2 capsules capsules capsules every 6 every 6 every 6 hours by hours by hours by oral route oral route oral route as needed. as needed. as needed. aspirin 81 aspirin 81 No 1 Q1D aspirin 81 [facility] mg mg mg [facility] tablet,[place] tablet,[place] tablet,del yed release yed release ayed Take 1 Take 1 release tablet tablet Take 1 every day every day tablet by oral by oral every day route. route. by oral route. buspirone 5 buspirone 5 No buspirone [facility] mg tablet mg tablet 5 mg [facility] al Take 1 Take 1 tablet tablet 3 tablet 3 Take 1 times a day times a day tablet 3 by oral by oral times a route for route for day by 30 days. 30 days. oral route for 30 days. cholecalcif cholecalcif No 1 Q1D cholecalci [facility] nicola nicola ferol [facility] (vitamin (vitamin (vitamin D3) 125 mcg D3) 125 mcg D3) 125 (5,000 (5,000 mcg (5,000 unit) unit) unit) tablet Take tablet Take tablet 1 tablet 1 tablet Take 1 every day every day tablet by oral by oral every day route. route. by oral route. divalproex divalproex No divalproex [facility] 125 mg 125 mg 125 mg [facility] capsule,del capsule,del capsule,de ayed ayed layed release release release sprinkle sprinkle sprinkle Take 2 Take 2 Take 2 capsules capsules capsules twice a day twice a day twice a by oral by oral day by route for route for oral route 30 days. 30 days. for 30 days. docusate docusate No 1 Q1D docusate [place] via sodium 100 sodium 100 sodium 100 [facility] mg tablet mg tablet mg tablet Take 1 Take 1 Take 1 tablet tablet tablet every day every day every day by oral by oral by oral route. route. route. ipratropium ipratropium No 3mL Q6H ipratropiu [facility] 0.5 0.5 m 0.5 [facility] mg-albutero mg-albutero mg-albuter l 3 mg (2.5 l 3 mg (2.5 ol 3 mg mg base)/3 mg base)/3 (2.5 mg mL mL base)/3 mL nebulizatio nebulizatio nebulizati n soln n soln on soln Inhale 3 mL Inhale 3 mL Inhale 3 every 6 every 6 mL every 6 hours by hours by hours by nebulizatio nebulizatio nebulizati n route as n route as on route needed. needed. as needed. lactulose lactulose No lactulose [facility] 10 gram/15 10 gram/15 10 gram/15 [facility] mL oral mL oral mL oral solution solution solution Take 30 mL Take 30 mL Take 30 mL every day every day every day by oral by oral by oral route at route at route at bedtime. bedtime. bedtime. nystatin nystatin No nystatin [place] via 100,000 100,000 100,000 [facility] l unit/gram unit/gram unit/gram topical topical topical cream cream cream simvastatin simvastatin No simvastati [facility] 20 mg 20 mg n 20 mg [facility] tablet Take tablet Take tablet 1 tablet 1 tablet Take 1 every day every day tablet by oral by oral every day route at route at by oral bedtime. bedtime. route at bedtime. tramadol 50 tramadol 50 No tramadol [facility] mg tablet mg tablet 50 mg Medi zeke Take 1 Take 1 tablet tablet tablet Take 1 every 8 every 8 tablet hours by hours by every 8 oral route oral route hours by for 30 for 30 oral route days. days. for 30 days. acetaminoph acetaminoph No 2capsul Q6H acetaminop [facility] en 325 mg en 325 mg e(s) hen 325 mg [facility] capsule capsule capsule Take 2 Take 2 Take 2 capsules capsules capsules every 6 every 6 every 6 hours by hours by hours by oral route oral route oral route as needed. as needed. as needed. aspirin 81 aspirin 81 No 1 Q1D aspirin 81 [facility] mg mg mg [facility] tablet,[place] tablet,[facility] tablet,del yed release yed release ayed Take 1 Take 1 release tablet tablet Take 1 every day every day tablet by oral by oral every day route. route. by oral route. buspirone 5 buspirone 5 No buspirone [facility] mg tablet mg tablet 5 mg [facility] al Take 1 Take 1 tablet tablet 3 tablet 3 Take 1 times a day times a day tablet 3 by oral by oral times a route for route for day by 30 days. 30 days. oral route for 30 days. cholecalcif cholecalcif No 1 Q1D cholecalci [facility]ola nicola ferol [facility] (vitamin (vitamin (vitamin D3) 125 mcg D3) 125 mcg D3) 125 (5,000 (5,000 mcg (5,000 unit) unit) unit) tablet Take tablet Take tablet 1 tablet 1 tablet Take 1 every day every day tablet by oral by oral every day route. route. by oral route. divalproex divalproex No divalproex [facility] 125 mg 125 mg 125 mg [facility] capsule,del capsule,del capsule,de ayed ayed layed release release release sprinkle sprinkle sprinkle Take 2 Take 2 Take 2 capsules capsules capsules twice a day twice a day twice a by oral by oral day by route for route for oral route 30 days. 30 days. for 30 days. docusate docusate No 1 Q1D docusate [place] via sodium 100 sodium 100 sodium 100 [facility] mg tablet mg tablet mg tablet Take 1 Take 1 Take 1 tablet tablet tablet every day every day every day by oral by oral by oral route. route. route. ipratropium ipratropium No 3mL Q6H ipratropiu [facility] 0.5 0.5 m 0.5 [facility] mg-albutero mg-albutero mg-albuter l 3 mg (2.5 l 3 mg (2.5 ol 3 mg mg base)/3 mg base)/3 (2.5 mg mL mL base)/3 mL nebulizatio nebulizatio nebulizati n soln n soln on soln Inhale 3 mL Inhale 3 mL Inhale 3 every 6 every 6 mL every 6 hours by hours by hours by nebulizatio nebulizatio nebulizati n route as n route as on route needed. needed. as needed. lactulose lactulose No lactulose [facility] 10 gram/15 10 gram/15 10 gram/15 [facility] mL oral mL oral mL oral solution solution solution Take 30 mL Take 30 mL Take 30 mL every day every day every day by oral by oral by oral route at route at route at bedtime. bedtime. bedtime. nystatin nystatin No nystatin [place] via 100,000 100,000 100,000 Med[facility] l unit/gram unit/gram unit/gram topical topical topical cream cream cream simvastatin simvastatin No simvastati [facility] 20 mg 20 mg n 20 mg [facility] tablet Take tablet Take tablet 1 tablet 1 tablet Take 1 every day every day tablet by oral by oral every day route at route at by oral bedtime. bedtime. route at bedtime. tramadol 50 tramadol 50 No 1 Q8H tramadol [facility] mg tablet mg tablet 50 mg Medi zeke Take 1 Take 1 tablet tablet tablet Take 1 every 8 every 8 tablet hours by hours by every 8 oral route oral route hours by for 30 for 30 oral route days. days. for 30 days. acetaminoph acetaminoph No 2capsul Q6H acetaminop [facility] en 325 mg en 325 mg e(s) hen 325 mg [facility] capsule capsule capsule Take 2 Take 2 Take 2 capsules capsules capsules every 6 every 6 every 6 hours by hours by hours by oral route oral route oral route as needed. as needed. as needed. aspirin 81 aspirin 81 No 1 Q1D aspirin 81 [facility] mg mg mg [facility] tablet,[place] tablet,[facility] tablet,del yed release yed release ayed Take 1 Take 1 release tablet tablet Take 1 every day every day tablet by oral by oral every day route. route. by oral route. buspirone 5 buspirone 5 No buspirone [facility] mg tablet mg tablet 5 mg Medic al Take 1 Take 1 tablet tablet 3 tablet 3 Take 1 times a day times a day tablet 3 by oral by oral times a route for route for day by 30 days. 30 days. oral route for 30 days. cholecalcif cholecalcif No 1 Q1D cholecalci [facility] nicola nicola ferol [facility] (vitamin (vitamin (vitamin D3) 125 mcg D3) 125 mcg D3) 125 (5,000 (5,000 mcg (5,000 unit) unit) unit) tablet Take tablet Take tablet 1 tablet 1 tablet Take 1 every day every day tablet by oral by oral every day route. route. by oral route. divalproex divalproex No divalproex [facility] 125 mg 125 mg 125 mg [facility] capsule,del capsule,del capsule,de ayed ayed layed release release release sprinkle sprinkle sprinkle Take 2 Take 2 Take 2 capsules capsules capsules twice a day twice a day twice a by oral by oral day by route for route for oral route 30 days. 30 days. for 30 days. docusate docusate No 1 Q1D docusate [facility] via sodium 100 sodium 100 sodium 100 Medical mg tablet mg tablet mg tablet Take 1 Take 1 Take 1 tablet tablet tablet every day every day every day by oral by oral by oral route. route. route. ipratropium ipratropium No 3mL Q6H ipratropiu [facility] 0.5 0.5 m 0.5 [facility] mg-albutero mg-albutero mg-albuter l 3 mg (2.5 l 3 mg (2.5 ol 3 mg mg base)/3 mg base)/3 (2.5 mg mL mL base)/3 mL nebulizatio nebulizatio nebulizati n soln n soln on soln Inhale 3 mL Inhale 3 mL Inhale 3 every 6 every 6 mL every 6 hours by hours by hours by nebulizatio nebulizatio nebulizati n route as n route as on route needed. needed. as needed. lactulose lactulose No lactulose [facility] 10 gram/15 10 gram/15 10 gram/15 [facility] mL oral mL oral mL oral solution solution solution Take 30 mL Take 30 mL Take 30 mL every day every day every day by oral by oral by oral route at route at route at bedtime. bedtime. bedtime. nystatin nystatin No nystatin [facility] 100,000 100,000 100,000 Medica l unit/gram unit/gram unit/gram topical topical topical cream cream cream ofloxacin ofloxacin No ofloxacin [facility] 0.3 % ear 0.3 % ear 0.3 % ear [facility] drops drops drops INSTILL 10 INSTILL 10 INSTILL 10 DROPS INTO DROPS INTO DROPS INTO AFFECTED AFFECTED AFFECTED EAR(S) BY EAR(S) BY EAR(S) BY OTIC ROUTE OTIC ROUTE OTIC ROUTE ONCE DAILY ONCE DAILY ONCE DAILY x 7 DAYS x 7 DAYS x 7 DAYS simvastatin simvastatin No simvastati [facility] 20 mg 20 mg n 20 mg [facility] tablet Take tablet Take tablet 1 tablet 1 tablet Take 1 every day every day tablet by oral by oral every day route at route at by oral bedtime. bedtime. route at bedtime. tramadol 50 tramadol 50 No tramadol [facility] mg tablet mg tablet 50 mg Medi zeke Take 1 Take 1 tablet tablet tablet Take 1 every 8 every 8 tablet hours by hours by every 8 oral route oral route hours by for 30 for 30 oral route days. days. for 30 days. acetaminoph acetaminoph No 2capsul Q6H acetaminop [facility] en 325 mg en 325 mg e(s) hen 325 mg [facility] capsule capsule capsule Take 2 Take 2 Take 2 capsules capsules capsules every 6 every 6 every 6 hours by hours by hours by oral route oral route oral route as needed. as needed. as needed. aspirin 81 aspirin 81 No 1 Q1D aspirin 81 [facility] mg mg mg [facility] tablet,azalea tablet,azalea tablet,del yed release yed release ayed Take 1 Take 1 release tablet tablet Take 1 every day every day tablet by oral by oral every day route. route. by oral route. buspirone 5 buspirone 5 No buspirone [facility] mg tablet mg tablet 5 mg Medic al Take 1 Take 1 tablet tablet 3 tablet 3 Take 1 times a day times a day tablet 3 by oral by oral times a route for route for day by 30 days. 30 days. oral route for 30 days. cholecalcif cholecalcif No 1 Q1D cholecalci [facility]ola nicola ferol [facility] (vitamin (vitamin (vitamin D3) 125 mcg D3) 125 mcg D3) 125 (5,000 (5,000 mcg (5,000 unit) unit) unit) tablet Take tablet Take tablet 1 tablet 1 tablet Take 1 every day every day tablet by oral by oral every day route. route. by oral route. divalproex divalproex No divalproex [facility] 125 mg 125 mg 125 mg [facility] capsule,del capsule,del capsule,de ayed ayed layed release release release sprinkle sprinkle sprinkle Take 2 Take 2 Take 2 capsules capsules capsules twice a day twice a day twice a by oral by oral day by route for route for oral route 30 days. 30 days. for 30 days. docusate docusate No 1 Q1D docusate [facility] via sodium 100 sodium 100 sodium 100 [facility] mg tablet mg tablet mg tablet Take 1 Take 1 Take 1 tablet tablet tablet every day every day every day by oral by oral by oral route. route. route. lactulose lactulose No lactulose [facility] 10 gram/15 10 gram/15 10 gram/15 [facility] mL oral mL oral mL oral solution solution solution Take 30 mL Take 30 mL Take 30 mL every day every day every day by oral by oral by oral route at route at route at bedtime. bedtime. bedtime. nystatin nystatin No nystatin [facility] via 100,000 100,000 100,000 Medica l unit/gram unit/gram unit/gram topical topical topical cream cream cream simvastatin simvastatin No simvastati [facility] 20 mg 20 mg n 20 mg [facility] tablet Take tablet Take tablet 1 tablet 1 tablet Take 1 every day every day tablet by oral by oral every day route at route at by oral bedtime. bedtime. route at bedtime. tramadol 50 tramadol 50 No tramadol [facility] mg tablet mg tablet 50 mg Medi zeke Take 1 Take 1 tablet tablet tablet Take 1 every 8 every 8 tablet hours by hours by every 8 oral route oral route hours by for 30 for 30 oral route days. days. for 30 days. Immunizations Ordered Immunization Filled Immunization Date Status Commen ts Source Name Name Tdap Tdap 2022-11-19 Completed [facility]:00:00 [facility] Tdap Tdap 2022-11-19 [facility]pleted [facility]:00 [facility] Tdap Tdap 2022-11-19 [facility]pleted [facility] 00:00:00 [facility] Tdap Tdap 2022-11-19 [facility]pleted [facility] 00:00:00 [facility] Tdap Tdap 2022-11-19 [facility]pleted [facility] 00:00:00 [facility] influenza, influenza, 2022-09-04 Completed [facility] injectable, injectable, 00:00:00 Medical quadrivalent quadrivalent influenza, influenza, 2022-09-04 Completed [facility] injectable, injectable, 00:00:00 Medical quadrivalent quadrivalent influenza, influenza, 2022-09-04 Completed [facility] injectable, injectable, 00:00:00 Medical quadrivalent quadrivalent influenza, influenza, 2022-09-04 Completed [facility] injectable, injectable, 00:00:00 Medical quadrivalent quadrivalent influenza, influenza, 2022-09-04 Completed [facility] injectable, injectable, 00:00:00 Medical quadrivalent quadrivalent influenza, influenza, 2022-09-04 Completed [facility] injectable, injectable, 00:00:00 Medical quadrivalent quadrivalent influenza, influenza, 2022-09-04 Completed [facility] injectable, injectable, 00:00:00 Medical quadrivalent quadrivalent influenza, influenza, 2022-09-04 Completed [facility]able, injectable, 00:00:00 Medical quadrivalent quadrivalent COVID-19 (SARS-COV-2) COVID-19 (SARS-COV-2) 2021-11-10 Completed [facility] vaccine, unspecified vaccine, unspecified 00:00:00 Medical COVID-19 (SARS-COV-2) COVID-19 (SARS-COV-2) 2021-11-10 Completed [facility] vaccine, unspecified vaccine, unspecified 00:00:00 Medical COVID-19 (SARS-COV-2) COVID-19 (SARS-COV-2) 2021-11-10 Completed [facility] vaccine, unspecified vaccine, unspecified 00:00:00 Medical COVID-19 (SARS-COV-2) COVID-19 (SARS-COV-2) 2021-11-10 Completed [facility] vaccine, unspecified vaccine, unspecified 00:00:00 Medical COVID-19 (SARS-COV-2) COVID-19 (SARS-COV-2) 2021-11-10 Completed [facility] vaccine, unspecified vaccine, unspecified 00:00:00 Medical COVID-19 (SARS-COV-2) COVID-19 (SARS-COV-2) 2021-11-10 Completed [facility] vaccine, unspecified vaccine, unspecified 00:00:00 Medical COVID-19 (SARS-COV-2) COVID-19 (SARS-COV-2) 2021-11-10 Completed [facility] vaccine, unspecified vaccine, unspecified 00:00:00 Medical COVID-19 (SARS-COV-2) COVID-19 (SARS-COV-2) 2021-11-10 Completed [facility] vaccine, unspecified vaccine, unspecified 00:00:00 Medical COVID-19 (SARS-COV-2) COVID-19 (SARS-COV-2) 2021-11-10 Completed [facility] vaccine, unspecified vaccine, unspecified 00:00:00 Medical COVID-19 (SARS-COV-2) COVID-19 (SARS-COV-2) 2021-11-10 Completed [facility] vaccine, unspecified vaccine, unspecified 00:00:00 Medical COVID-19 (SARS-COV-2) COVID-19 (SARS-COV-2) 2021-11-10 Completed [facility] vaccine, unspecified vaccine, unspecified 00:00:00 Medical COVID-19 (SARS-COV-2) COVID-19 (SARS-COV-2) 2021-11-10 Completed [facility] vaccine, unspecified vaccine, unspecified 00:00:00 Medical COVID-19 (SARS-COV-2) COVID-19 (SARS-COV-2) 2021-11-10 Completed [facility] vaccine, unspecified vaccine, unspecified 00:00:00 Medical COVID-19 (SARS-COV-2) COVID-19 (SARS-COV-2) 2021-11-10 Completed [facility] vaccine, unspecified vaccine, unspecified 00:00:00 Medical COVID-19 (SARS-COV-2) COVID-19 (SARS-COV-2) 2021-11-10 Completed [facility] vaccine, unspecified vaccine, unspecified 00:00:00 Medical COVID-19 (SARS-COV-2) COVID-19 (SARS-COV-2) 2021-11-10 Completed [facility] vaccine, unspecified vaccine, unspecified 00:00:00 Medical COVID-19 (SARS-COV-2) COVID-19 (SARS-COV-2) 2021-11-10 Completed [facility] vaccine, unspecified vaccine, unspecified 00:00:00 Medical COVID-19 (SARS-COV-2) COVID-19 (SARS-COV-2) 2021-11-10 Completed [facility] vaccine, unspecified vaccine, unspecified 00:00:00 Medical pneumococcal pneumococcal 2021-10-27 Completed [facility] polysaccharide PPV23 polysaccharide PPV23 00:00:00 Medical pneumococcal pneumococcal 2021-10-27 Completed [facility] polysaccharide PPV23 polysaccharide PPV23 00:00:00 Medical pneumococcal pneumococcal 2021-10-27 Completed [facility] polysaccharide PPV23 polysaccharide PPV23 00:00:00 Medical pneumococcal pneumococcal 2021-10-27 Completed [facility] polysaccharide PPV23 polysaccharide PPV23 00:00:00 Medical pneumococcal pneumococcal 2021-10-27 Completed [facility] polysaccharide PPV23 polysaccharide PPV23 00:00:00 Medical pneumococcal pneumococcal 2021-10-27 Completed [facility] polysaccharide PPV23 polysaccharide PPV23 00:00:00 Medical pneumococcal pneumococcal 2021-10-27 Completed [facility] polysaccharide PPV23 polysaccharide PPV23 00:00:00 Medical influenza, influenza, 2021-09-15 Completed [facility] injectable, injectable, 00:00:00 Medical quadrivalent quadrivalent influenza, influenza, 2021-09-15 Completed [facility] injectable, injectable, 00:00:00 Medical quadrivalent quadrivalent influenza, influenza, 2021-09-15 Completed [facility] injectable, injectable, 00:00:00 Medical quadrivalent quadrivalent influenza, influenza, 2021-09-15 Completed [facility] injectable, injectable, 00:00:00 Medical quadrivalent quadrivalent influenza, influenza, 2021-09-15 Completed [facility] injectable, injectable, 00:00:00 Medical quadrivalent quadrivalent influenza, influenza, 2021-09-15 Completed [facility] injectable, injectable, 00:00:00 Medical quadrivalent quadrivalent influenza, influenza, 2021-09-15 Completed [facility] injectable, injectable, 00:00:00 Medical quadrivalent quadrivalent influenza, influenza, 2021-09-15 Completed [facility] injectable, injectable, 00:00:00 Medical quadrivalent quadrivalent influenza, influenza, 2021-09-15 Completed [facility] injectable, injectable, 00:00:00 Medical quadrivalent quadrivalent influenza, influenza, 2021-09-15 Completed [facility] injectable, injectable, 00:00:00 Medical quadrivalent quadrivalent influenza, influenza, 2021-09-15 Completed [facility] injectable, injectable, 00:00:00 Medical quadrivalent quadrivalent influenza, influenza, 2021-09-15 Completed [facility] injectable, injectable, 00:00:00 Medical quadrivalent quadrivalent influenza, influenza, 2021-09-15 Completed [facility] injectable, injectable, 00:00:00 Medical quadrivalent quadrivalent influenza, influenza, 2021-09-15 Completed [facility] injectable, injectable, 00:00:00 Medical quadrivalent quadrivalent influenza, influenza, 2021-09-15 Completed [facility] injectable, injectable, 00:00:00 Medical quadrivalent quadrivalent influenza, influenza, 2021-09-15 Completed [facility] injectable, injectable, 00:00:00 Medical quadrivalent quadrivalent influenza, influenza, 2021-09-15 Completed [facility] injectable, injectable, 00:00:00 Medical quadrivalent quadrivalent influenza, influenza, 2021-09-15 Completed [facility] injectable, injectable, 00:00:00 Medical quadrivalent quadrivalent COVID-19 (SARS-COV-2) COVID-19 (SARS-COV-2) 2020-12-24 Completed [facility] vaccine, unspecified vaccine, unspecified 00:00:00 Medical COVID-19 (SARS-COV-2) COVID-19 (SARS-COV-2) 2020-12-24 Completed [facility] vaccine, unspecified vaccine, unspecified 00:00:00 Medical COVID-19 (SARS-COV-2) COVID-19 (SARS-COV-2) 2020-12-24 Completed [facility] vaccine, unspecified vaccine, unspecified 00:00:00 Medical COVID-19 (SARS-COV-2) COVID-19 (SARS-COV-2) 2020-12-24 Completed [facility] vaccine, unspecified vaccine, unspecified 00:00:00 Medical COVID-19 (SARS-COV-2) COVID-19 (SARS-COV-2) 2020-12-24 Completed [facility] vaccine, unspecified vaccine, unspecified 00:00:00 Medical COVID-19 (SARS-COV-2) COVID-19 (SARS-COV-2) 2020-12-24 Completed [facility] vaccine, unspecified vaccine, unspecified 00:00:00 Medical COVID-19 (SARS-COV-2) COVID-19 (SARS-COV-2) 2020-12-24 Completed [facility] vaccine, unspecified vaccine, unspecified 00:00:00 Medical COVID-19 (SARS-COV-2) COVID-19 (SARS-COV-2) 2020-12-24 Completed [facility] vaccine, unspecified vaccine, unspecified 00:00:00 Medical COVID-19 (SARS-COV-2) COVID-19 (SARS-COV-2) 2020-12-24 Completed [facility] vaccine, unspecified vaccine, unspecified 00:00:00 Medical COVID-19 (SARS-COV-2) COVID-19 (SARS-COV-2) 2020-12-24 Completed [facility] vaccine, unspecified vaccine, unspecified 00:00:00 Medical COVID-19 (SARS-COV-2) COVID-19 (SARS-COV-2) 2020-12-24 Completed [facility] vaccine, unspecified vaccine, unspecified 00:00:00 Medical COVID-19 (SARS-COV-2) COVID-19 (SARS-COV-2) 2020-12-24 Completed [facility] vaccine, unspecified vaccine, unspecified 00:00:00 Medical COVID-19 (SARS-COV-2) COVID-19 (SARS-COV-2) 2020-12-24 Completed [facility] vaccine, unspecified vaccine, unspecified 00:00:00 Medical COVID-19 (SARS-COV-2) COVID-19 (SARS-COV-2) 2020-12-24 Completed [facility] vaccine, unspecified vaccine, unspecified 00:00:00 Medical COVID-19 (SARS-COV-2) COVID-19 (SARS-COV-2) 2020-12-24 Completed [facility] vaccine, unspecified vaccine, unspecified 00:00:00 Medical COVID-19 (SARS-COV-2) COVID-19 (SARS-COV-2) 2020-12-24 Completed [facility] vaccine, unspecified vaccine, unspecified 00:00:00 Medical COVID-19 (SARS-COV-2) COVID-19 (SARS-COV-2) 2020-12-24 Completed [facility] vaccine, unspecified vaccine, unspecified 00:00:00 Medical COVID-19 (SARS-COV-2) COVID-19 (SARS-COV-2) 2020-12-24 Completed [facility] vaccine, unspecified vaccine, unspecified 00:00:00 Medical COVID-19 (SARS-COV-2) COVID-19 (SARS-COV-2) 2020-12-03 Completed [facility] vaccine, unspecified vaccine, unspecified 00:00:00 Medical COVID-19 (SARS-COV-2) COVID-19 (SARS-COV-2) 2020-12-03 Completed [facility] vaccine, unspecified vaccine, unspecified 00:00:00 Medical COVID-19 (SARS-COV-2) COVID-19 (SARS-COV-2) 2020-12-03 Completed [facility] vaccine, unspecified vaccine, unspecified 00:00:00 Medical COVID-19 (SARS-COV-2) COVID-19 (SARS-COV-2) 2020-12-03 Completed [facility] vaccine, unspecified vaccine, unspecified 00:00:00 Medical COVID-19 (SARS-COV-2) COVID-19 (SARS-COV-2) 2020-12-03 Completed [facility] vaccine, unspecified vaccine, unspecified 00:00:00 Medical COVID-19 (SARS-COV-2) COVID-19 (SARS-COV-2) 2020-12-03 Completed [facility] vaccine, unspecified vaccine, unspecified 00:00:00 Medical COVID-19 (SARS-COV-2) COVID-19 (SARS-COV-2) 2020-12-03 Completed [facility] vaccine, unspecified vaccine, unspecified 00:00:00 Medical COVID-19 (SARS-COV-2) COVID-19 (SARS-COV-2) 2020-12-03 Completed [facility] vaccine, unspecified vaccine, unspecified 00:00:00 Medical COVID-19 (SARS-COV-2) COVID-19 (SARS-COV-2) 2020-12-03 Completed [facility] vaccine, unspecified vaccine, unspecified 00:00:00 Medical COVID-19 (SARS-COV-2) COVID-19 (SARS-COV-2) 2020-12-03 Completed [facility] vaccine, unspecified vaccine, unspecified 00:00:00 Medical COVID-19 (SARS-COV-2) COVID-19 (SARS-COV-2) 2020-12-03 Completed [facility] vaccine, unspecified vaccine, unspecified 00:00:00 Medical COVID-19 (SARS-COV-2) COVID-19 (SARS-COV-2) 2020-12-03 Completed [facility] vaccine, unspecified vaccine, unspecified 00:00:00 Medical COVID-19 (SARS-COV-2) COVID-19 (SARS-COV-2) 2020-12-03 Completed [facility] vaccine, unspecified vaccine, unspecified 00:00:00 Medical COVID-19 (SARS-COV-2) COVID-19 (SARS-COV-2) 2020-12-03 Completed [facility] vaccine, unspecified vaccine, unspecified 00:00:00 Medical COVID-19 (SARS-COV-2) COVID-19 (SARS-COV-2) 2020-12-03 Completed [facility] vaccine, unspecified vaccine, unspecified 00:00:00 Medical COVID-19 (SARS-COV-2) COVID-19 (SARS-COV-2) 2020-12-03 Completed [facility] vaccine, unspecified vaccine, unspecified 00:00:00 Medical COVID-19 (SARS-COV-2) COVID-19 (SARS-COV-2) 2020-12-03 Completed [facility] vaccine, unspecified vaccine, unspecified 00:00:00 Medical COVID-19 (SARS-COV-2) COVID-19 (SARS-COV-2) 2020-12-03 Completed [facility] vaccine, unspecified vaccine, unspecified 00:00:00 Medical pneumococcal pneumococcal 2018-02-23 Completed [facility] conjugate PCV 13 conjugate PCV 13 00:00:00 Me dical pneumococcal pneumococcal 2018-02-23 Completed [facility] conjugate PCV 13 conjugate PCV 13 00:00:00 Me [facility]ical pneumococcal pneumococcal 2018-02-23 Completed [facility] conjugate PCV 13 conjugate PCV 13 00:00:00 Me dical pneumococcal pneumococcal 2018-02-23 Completed [facility] conjugate PCV 13 conjugate PCV 13 00:00:00 Me [facility]ical pneumococcal pneumococcal 2018-02-23 Completed [facility] conjugate PCV 13 conjugate PCV 13 00:00:00 Me [facility]ical pneumococcal pneumococcal 2018-02-23 Completed [facility] conjugate PCV 13 conjugate PCV 13 00:00:00 [facility] pneumococcal pneumococcal 2018-02-23 Completed [facility] conjugate PCV 13 conjugate PCV 13 00:00:00 Me [facility]ical Vital Signs Vital Name Observation Time Observation Value Comments Source BP Diastolic 2023-03-15 00:00:00 74 mm[Hg] [facility] Height 2023-03-15 00:00:00 68 [in_i] [facility] BMI (Body Mass Index) 2023-03-15 00:00:00 26.7 [facility]/m[facility] Systolic 2023-03-15 00:00:00 118 mm[Hg] [facility] Body Weight 2023-03-15 00:00:00 2808 [oz_av] [facility] BP Diastolic 2023-02-18 00:00:00 68 mm[Hg] [facility] Height 2023-02-18 00:00:00 68 [in_i] [facility] BMI (Body Mass Index) 2023-02-18 00:00:00 26.2 kg/m2 [facility] BP Systolic 2023-02-18 00:00:00 124 mm[Hg] [facility] Body Weight 2023-02-18 00:00:00 2754 [oz_av] [facility] BP Diastolic 2023-01-21 00:00:00 66 mm[Hg] [facility] Height 2023-01-21 00:00:00 68 [in_i] [facility] BMI (Body Mass Index) 2023-01-21 00:00:00 26.5 kg/m2 [facility] BP Systolic 2023-01-21 00:00:00 119 mm[Hg] [facility] Body Weight 2023-01-21 00:00:00 2786 [oz_av] [facility] BP Diastolic 2022-12-21 00:00:00 84 mm[Hg] [facility] Height 2022-12-21 00:00:00 68 [in_i] [facility] BMI (Body Mass Index) 2022-12-21 00:00:00 26.7 kg/m2 [facility] BP Systolic 2022-12-21 00:00:00 139 mm[Hg] [facility] Body Weight 2022-12-21 00:00:00 2809 [oz_av] [facility] BP Diastolic 2022-12-07 00:00:00 70 mm[Hg] [facility] Height 2022-12-07 00:00:00 68 [in_i] [facility] BMI (Body Mass Index) 2022-12-07 00:00:00 26.7 kg/m2 [facility] BP Systolic 2022-12-07 00:00:00 135 mm[Hg] [facility] Body Weight 2022-12-07 00:00:00 2809 [oz_av] [facility] BP Diastolic 2022-11-09 00:00:00 74 mm[Hg] [facility] Height 2022-11-09 00:00:00 68 [in_i] [facility] BMI (Body Mass Index) 2022-11-09 00:00:00 26.7 kg/m2 [facility] BP Systolic 2022-11-09 00:00:00 125 mm[Hg] [facility] Body Weight 2022-11-09 00:00:00 2808 [oz_av] [facility] BP Diastolic 2022-09-28 00:00:00 70 mm[Hg] [facility] Height 2022-09-28 00:00:00 68 [in_i] [facility] BMI (Body Mass Index) 2022-09-28 00:00:00 27.1 kg/m2 [facility] BP Systolic 2022-09-28 00:00:00 128 mm[Hg] [facility] Body Weight 2022-09-28 00:00:00 2852 [oz_av] [facility] BP Diastolic 2022-09-03 00:00:00 72 mm[Hg] [facility] Height 2022-09-03 00:00:00 68 [in_i] [facility] BMI (Body Mass Index) 2022-09-03 00:00:00 26 kg/m2 [facility] BP Systolic 2022-09-03 00:00:00 129 mm[Hg] [facility] Body Weight 2022-09-03 00:00:00 2738 [oz_av] [facility] BP Diastolic 2022-08-17 00:00:00 76 mm[Hg] [facility] Height 2022-08-17 00:00:00 68 [in_i] [facility] BMI (Body Mass Index) 2022-08-17 00:00:00 26 kg/m2 [facility] BP Systolic 2022-08-17 00:00:00 118 mm[Hg] [facility] Body Weight 2022-08-17 00:00:00 2738 [oz_av] [facility] BP Diastolic 2022-08-09 00:00:00 74 mm[Hg] [facility] Height 2022-08-09 00:00:00 68 [in_i] [facility] BMI (Body Mass Index) 2022-08-09 00:00:00 26 kg/m2 [facility] BP Systolic 2022-08-09 00:00:00 136 mm[Hg] [facility] Body Weight 2022-08-09 00:00:00 2738 [oz_av] [facility] BP Diastolic 2022-07-13 00:00:00 68 mm[Hg] [facility] Height 2022-07-13 00:00:00 68 [in_i] [facility] BMI (Body Mass Index) 2022-07-13 00:00:00 26.5 kg/m2 [facility] BP Systolic 2022-07-13 00:00:00 124 mm[Hg] [facility] Body Weight 2022-07-13 00:00:00 2789 [oz_av] [facility] BP Diastolic 2022-06-17 00:00:00 74 mm[Hg] [facility] Height 2022-06-17 00:00:00 68 [in_i] [facility] BMI (Body Mass Index) 2022-06-17 00:00:00 36.2 kg/m2 [facility] BP Systolic 2022-06-17 00:00:00 126 mm[Hg] [facility] Body Weight 2022-06-17 00:00:00 3811 [oz_av] [facility] BP Diastolic 2022-06-04 00:00:00 65 mm[Hg] [facility] Height 2022-06-04 00:00:00 68 [in_i] [facility] BMI (Body Mass Index) 2022-06-04 00:00:00 36.2 kg/m2 [facility] BP Systolic 2022-06-04 00:00:00 120 mm[Hg] [facility] Body Weight 2022-06-04 00:00:00 3811 [oz_av] [facility] BP Diastolic 2022-06-01 00:00:00 77 mm[Hg] [facility] Height 2022-06-01 00:00:00 68 [in_i] [facility] BMI (Body Mass Index) 2022-06-01 00:00:00 36.3 kg/m2 [facility] BP Systolic 2022-06-01 00:00:00 132 mm[Hg] [facility] Body Weight 2022-06-01 00:00:00 3816 [oz_av] [facility] BP Diastolic 2022-05-19 00:00:00 77 mm[Hg] [facility] Height 2022-05-19 00:00:00 68 [in_i] [facility] BMI (Body Mass Index) 2022-05-19 00:00:00 36.3 kg/m2 [facility] BP Systolic 2022-05-19 00:00:00 126 mm[Hg] [facility] Body Weight 2022-05-19 00:00:00 3816 [oz_av] [facility] BP Diastolic 2022-05-07 00:00:00 73 mm[Hg] [facility] Height 2022-05-07 00:00:00 68 [in_i] [facility] BMI (Body Mass Index) 2022-05-07 00:00:00 36.2 kg/m2 [facility] BP Systolic 2022-05-07 00:00:00 130 mm[Hg] [facility] Body Weight 2022-05-07 00:00:00 3811 [oz_av] [facility] BP Diastolic 2022-04-22 00:00:00 90 mm[Hg] [facility] Height 2022-04-22 00:00:00 68 [in_i] [facility] BMI (Body Mass Index) 2022-04-22 00:00:00 36.5 kg/m2 [facility] BP Systolic 2022-04-22 00:00:00 121 mm[Hg] [facility] Body Weight 2022-04-22 00:00:00 3836.8 [oz_av] [facility] BP Diastolic 2022-04-02 00:00:00 68 mm[Hg] [facility] Height 2022-04-02 00:00:00 68 [in_i] [facility] BMI (Body Mass Index) 2022-04-02 00:00:00 36.4 kg/m2 [facility] BP Systolic 2022-04-02 00:00:00 129 mm[Hg] [facility] Body Weight 2022-04-02 00:00:00 3832 [oz_av] [facility] BP Diastolic 2022-03-19 00:00:00 75 mm[Hg] [facility] Height 2022-03-19 00:00:00 68 [in_i] [facility] BMI (Body Mass Index) 2022-03-19 00:00:00 36.5 kg/m2 [facility] BP Systolic 2022-03-19 00:00:00 133 mm[Hg] [facility] Body Weight 2022-03-19 00:00:00 3840 [oz_av] [facility] BP Diastolic 2022-03-16 00:00:00 62 mm[Hg] [facility] Height 2022-03-16 00:00:00 68 [in_i] [facility] BMI (Body Mass Index) 2022-03-16 00:00:00 36.4 kg/m2 [facility] BP Systolic 2022-03-16 00:00:00 132 mm[Hg] [facility] Body Weight 2022-03-16 00:00:00 3826 [oz_av] [facility] BP Diastolic 2022-03-04 00:00:00 78 mm[Hg] [facility] Height 2022-03-04 00:00:00 68 [in_i] [facility] BMI (Body Mass Index) 2022-03-04 00:00:00 36.4 kg/m2 [facility] BP Systolic 2022-03-04 00:00:00 150 mm[Hg] [facility] Body Weight 2022-03-04 00:00:00 3827 [oz_av] [facility] Height 2022-03-02 00:00:00 68 [in_i] [facility] BMI (Body Mass Index) 2022-03-02 00:00:00 36.4 kg/m2 [facility] Body Weight 2022-03-02 00:00:00 3827.2 [oz_av] [facility] Procedures This patient has no known procedures. Plan of Care Planned Activity Planned Date Details Comments Source Instructions [facility] Encounters Start End Encounter Admission Attending Care Care Encounter Source Date/Time Date/Time Type Type Clinicians Facility Department ID 2023-07-06 2023-07-06 Outpatient [facility] PR[facility] [id number] [facility] 00:00:00 Gwyn [id number] Medica l 2023-05-31 2023-05-31 Outpatient [facility] PR[facility] PRIV 239 [id number] [facility] 00:00:00 00:00:00 Gwyn [id number] Medica l 2023-05-31 2023-05-31 Outpatient [facility] PRIV PRIV 239 [id number] [facility] 00:00:00 00:00:00 d_J [id number] Medica l 2023-05-31 2023-05-31 Outpatient [facility] PRIV PRIV 239 [id number] [facility] 00:00:00 00:00:00 d_J [id number] Medica l 2023-05-31 2023-05-31 Outpatient [facility] PRIV PRIV 239 [id number] [facility] 00:00:00 00:00:00 d_J [id number] Medica l 2023-03-21 2023-03-21 Outpatient [facility] PRIV PRIV 239 [id number] [facility] 00:00:00 00:00:00 d_J [id number] Medica l 2023-03-21 2023-03-21 Outpatient [facility] PRIV PRIV 239 [id number] [facility] 00:00:00 00:00:00 d_J [id number] Medica l 2023-03-21 2023-03-21 Outpatient [facility] PRIV PRIV 239 [id number] [facility] 00:00:00 00:00:00 d_J [id number] Medica l 2023-03-21 2023-03-21 Outpatient [facility] PRIV PRIV 239 [id number] [facility] 00:00:00 00:00:00 d_J [id number] Medica l 2023-03-21 2023-03-21 Outpatient [facility] PRIV PRIV 239 [id number] [facility] 00:00:00 00:00:00 d_J [id number] Medica l 2023-03-21 2023-03-21 Outpatient [facility] PRIV PRIV 239 [id number] [facility] 00:00:00 00:00:00 d_J [id number] Medica l 2023-03-21 2023-03-21 Outpatient [facility] PRIV PRIV 239 [id number] [facility] 00:00:00 00:00:00 d_J [id number] Medica l 2023-03-15 2023-03-15 [facility] [id number] [facility] 00:00:00 00:00:00 ALEENA Sutton: Health - Med ical [address] [place] [address] , Ph. 2023-02-25 2023-02-25 Outpatient [facility] PRIV PRIV 239 [id number] [facility] 00:00:00 00:00:00 d_J [id number] Medica l 2023-02-25 2023-02-25 Outpatient [facility] PRIV PRIV 239 [id number] [facility] 00:00:00 00:00:00 d_J [id number] Medica l 2023-02-18 2023-02-18 [facility] 331 [facility]:00:00 00:00:00 ALEENA Sutton: Health - Med ical [address] [place] [address] , Ph. 2023-01-27 2023-01-27 Outpatient [facility] PRIV PRIV 239 [id number] [facility] 00:00:00 00:00:00 d_J [id number] Medica l 2023-01-27 2023-01-27 Outpatient [facility] PRIV PRIV 239 [id number] [facility] 00:00:00 00:00:00 d_J [id number] Medica l 2023-01-27 2023-01-27 Outpatient [facility] PRIV PRIV 239 [id number] [facility] 00:00:00 00:00:00 d_J [id number] Medica l 2023-01-21 2023-01-21 Shannon [facility] [id number] [facility] 00:00:00 00:00:00 ALEENA Sutton: Health - Med ical [address] [place] [address] , Ph. 2022-12-27 2022-12-27 Outpatient [facility] PRIV PRIV 239 [id number] [facility] 00:00:00 00:00:00 d_J [id number] Medica l 2022-12-23 2022-12-23 Outpatient [facility] PRIV PRIV 239 [id number] [facility] 00:00:00 00:00:00 d_J [id number] Medica l 2022-12-21 2022-12-21 Mike Jiang [facility] [id number] [facility] 00:00:00 00:00:00 Agatha [facility] - Med ical MD: [address] [address] , Ph. 2022-12-07 2022-12-07 Shannon [facility] [id number] [facility] 00:00:00 00:00:00 ALEENA Sutton: Health - Med ical [address] [address] , Ph. 2022-11-09 2022-11-09 [facility] [id number] [facility] 00:00:00 00:00:00 ALEENA Sutton: Health - Med ical [address] [address] , Ph. 2022-09-28 2022-09-28 Shannon [facility] [id number] [facility] 00:00:00 00:00:00 ALEENA Sutton: Health - Med ical [address] [address] , Ph. 2022-09-20 2022-09-20 Outpatient [facility] PRIV PRIV 239 [id number] [facility] 00:00:00 00:00:00 d_J [id number] Medica l 2022-09-20 2022-09-20 Outpatient [facility] PRIV PRIV 239 [id number] [facility] 00:00:00 00:00:00 d_Mary [id number] Medica l 2022-09-20 2022-09-20 Outpatient [facility] PRIV PRIV 239 [id number] [facility] 00:00:00 00:00:00 d_J [id number] Medica l 2022-09-20 2022-09-20 Outpatient [facility] PRIV PRIV 239 [id number] [facility] 00:00:00 00:00:00 d_J [id number] Medica l 2022-09-20 2022-09-20 Outpatient [facility] PRIV PRIV 239 [id number] [facility] 00:00:00 00:00:00 d_J [id number] Medica l 2022-09-20 2022-09-20 Outpatient [facility] PRIV PRIV 239 [id number] [facility] 00:00:00 00:00:00 d_J [id number] Medica l 2022-09-14 2022-09-14 Outpatient [facility] PRIV PRIV 239 [id number] [facility] 00:00:00 00:00:00 d_J [id number] Medica l 2022-09-03 2022-09-03 Shannon [facility] [id number] [facility] 00:00:00 00:00:00 ALEENA Sutton: Health - Med ical [address] [address] , Ph. 2022-08-17 2022-08-17 Shannon [facility] [id number] [facility] 00:00:00 00:00:00 ALEENA Sutton: Health - Med ical [address] [address] , Ph. 2022-08-09 2022-08-09 Mike Jiang [facility] [id number] [facility] 00:00:00 00:00:00 Agatha Health - Med ical MD: [address] [address] , Ph. 2022-08-04 2022-08-04 Outpatient [facility] PRIV PRIV 239 [id number] [facility] 00:00:00 00:00:00 d_J [id number] Medica l 2022-07-22 2022-07-22 Outpatient [facility] PRIV PRIV 239 [id number] [facility] 00:00:00 00:00:00 d_J [id number] Medica l 2022-07-13 2022-07-13 Outpatient Herman PRIV PRIV [id number] 00:00:00 00:00:00 Shannon [id number] 2022-07-13 2022-07-13 [facility] [id number] [facility] 00:00:00 00:00:00 ALEENA Sutton: Health - Med ical [address] [address] , Ph. 2022-06-22 2022-06-22 Outpatient [facility]Tod PRIV PRIV 239 [id number] [facility] 00:00:00 00:00:00 d_J [id number] Medica l 2022-06-21 2022-06-21 Outpatient [facility] PRIV PRIV 239 [id number] [facility] 00:00:00 00:00:00 d_J [id number] Medica l 2022-06-17 2022-06-17 Outpatient [facility] PRIV PRIV 239 [id number] [facility] 00:00:00 00:00:00 d_J [id number] Medica l 2022-06-17 2022-06-17 Mike Jiang [facility] [id number] [facility] 00:00:00 00:00:00 Agatha [facility] - Med ica MD: [address] [address] , Ph. 2022-06-17 2022-06-17 Outpatient AgathaCARI PRIV [id number] 00:00:00 00:00:00 Mike Jiang [id number] 2022-06-14 2022-06-14 Outpatient [facility] PRIV PRIV 239 [id number] [facility] 02:27:00 02:27:00 d_J [id number] Medica l 2022-06-04 2022-06-04 Outpatient [facility] PRIV PRIV 239 [id number] [facility] 04:09:00 04:09:00 d_J [id number] Medica l 2022-06-04 [facility]06-[facility] [id number] [facility] 00:00:00 00:00:00 ALEENA Sutton: Health - Med ical [address] [address] , Ph. 2022-06-04 2022-06-04 Outpatient Herman, PRIV PRIV [id number] 00:00:00 00:00:00 Shannon [id number] 2022-06-02 2022-06-02 Outpatient [facility] PRIV PRIV 239 [id number] [facility] 02:16:00 02:16:00 d_J [id number] Medica l 2022-06-01 2022-06-01 Outpatient [facility] PRIV PRIV 239 [id number] [facility] 01:13:00 01:13:00 d_J [id number] Medica l 2022-06-01 2022-06-[facility] [id number] [facility] 00:00:00 00:00:00 ALEENA Sutton: Health - Med ical [address] [address] , Ph. 2022-06-01 2022-06-01 Outpatient Herman PRIV PRIV [id number] 00:00:00 00:00:00 Shannon [id number] 2022-05-28 2022-05-28 Outpatient [facility] PRIV PRIV 239 [id number] [facility] 11:29:00 11:29:00 d_J [id number] Medica l 2022-05-27 2022-05-27 Outpatient [facility] PRIV PRIV 239 [id number] [facility] 11:48:00 11:48:00 d_J [id number] Medica l 2022-05-19 2022-05-19 Outpatient [facility] PRIV PRIV 239 [id number] [facility] 09:16:00 09:16:00 d_J [id number] Medica l 2022-05-19 2022-05-19 Shannon [facility] [id number] [facility] 00:00:00 00:00:00 ALEENA Sutton: Health - Med ical [address] [address] , Ph. 2022-05-19 2022-05-19 Outpatient Herman, PRIV PRIV [id number] 00:00:00 00:00:00 Shannon [id number] 2022-05-16 2022-05-16 Outpatient [facility] PRIV PRIV 239 [id number] [facility] 10:45:00 10:45:00 d_J [id number] Medica l 2022-05-07 2022-05-07 Outpatient [facility]Tod PRIV PRIV 239 [id number] [facility] 06:48:00 06:48:00 d_J [id number] Medica l 2022-05-07 2022-05-07 Shannon [facility] [id number] [facility] 00:00:00 00:00:00 ALEENA Sutton: Health - Med ical [address] [address] , Ph. 2022-05-07 2022-05-07 Outpatient Herman, PRIV PRIV [id number] 00:00:00 00:00:00 Shannon [id number] 2022-04-24 2022-04-24 Outpatient [facility] PRIV PRIV [id number] [facility] 10:41:00 10:41:00 d_J [id number] Medica l 2022-04-22 2022-04-22 Outpatient [facility]Tod PRIV PRIV 239 [id number] [facility] 02:04:00 02:04:00 d_J [id number] Medica l 2022-04-22 2022-04-22 Outpatient Agatha, PRIV PRIV [id number] 00:00:00 00:00:00 Mike Jiang [id number] 2022-04-22 Mike Jiang [facility] 202 [facility] 00:00:00 00:00:00 Agatha [facility] - Med ical MD: [address] [address] , Ph. 2022-04-11 2022-04-11 Outpatient [facility]Tod PRIV PRIV 239 [id number] [facility] 10:45:00 10:45:00 d_J [id number] Medica l 2022-04-02 2022-04-02 Outpatient [facility]Tod PRIV PRIV [id number] [facility] 01:08:00 01:08:00 d_J [id number] Medica l 2022-04-02 2022-04-02 Outpatient Herman, PRIV PRIV [id number] 00:00:00 00:00:00 Shannon [id number] 2022-04-02 2022-04-02 Shannon [facility] [id number] [facility] 00:00:00 00:00:00 ALEENA Sutton: Health - Med ical [address] [address] , Ph. 2022-03-28 2022-03-28 Outpatient [facility]Tod PRIV PRIV 239 [id number] [facility] 10:46:00 10:46:00 d_J [id number] Medica l 2022-03-23 2022-03-23 Outpatient [facility] PRIV PRIV 239 [id number] [facility] 01:40:00 01:40:00 d_J [id number] Medica l 2022-03-19 2022-03-19 Outpatient [facility] PRIV PRIV [id number] [facility] 08:35:00 08:35:00 d_J [id number] Medica l 2022-03-19 2022-03-19 Outpatient Herman PRIV PRIV [id number] 00:00:00 00:00:00 Shannon [id number] 1904-04-29 2022-03-19 Shannon [facility] [id number] [facility] 00:00:00 00:00:00 ALEENA Sutton: Health - Med ical [address] [address] , Ph. 2022-03-16 2022-03-16 Outpatient [facility]Tod PRIV PRIV 239 [id number] [facility] 01:18:00 01:18:00 d_J [id number] Medica l 2022-03-16 2022-03-16 Outpatient Herman PRIV PRIV [id number] c-[id number] 00:00:00 00:00:00 Shnanon [id number] 2022-03-16 2022-03-16 Shannon [facility] [id number] [facility] 00:00:00 00:00:00 ALEENA Sutton: Health - Med ical [address] [address] , Ph. 2022-03-11 2022-03-11 Outpatient [facility]Tod PRIV PRIV [id number] [facility] 01:01:00 01:01:00 d_J [id number] Medica l 2022-03-10 2022-03-10 Outpatient [facility]Tod PRIV PRIV [id number] [facility] 03:19:00 03:19:00 d_J [id number] Medica l 2022-03-09 2022-03-09 Outpatient [facility]Tod PRIV PRIV 239 [id number] [facility] 05:30:00 05:30:00 d_J [id number] Medica l 2022-03-04 2022-03-04 Outpatient [facility]Tod PRIV PRIV [id number] [facility] 11:25:00 11:25:00 d_J [id number] Medica l 2022-03-04 2022-03-04 Outpatient Agatha, PRIV PRIV [id number] 00:00:00 00:00:00 Mike Apolinar [id number] 2022-03-04 2022-03-04 Mikeomar Lastne [facility]:00:00 00:00:00 Agatha [facility] - Med ical MD: [address] , [place] [address] , Ph. 2022-03-04 2022-03-04 Outpatient Agatha, PRIV PRIV [id number] 00:00:00 00:00:00 Mike Jiang [id number] 2022-03-03 2022-03-03 Outpatient [facility]Tod PRIV PRIV [id number] [facility] 04:03:00 04:03:00 d_J [id number] Medica l 2022-03-02 2022-03-02 Outpatient [facility]Tod PRIV PRIV [id number] [facility] 12:59:00 12:59:00 d_J [id number] Medica l 2022-03-02 2022-03-02 Outpatient Herman, PRIV PRIV [id number] 00:00:00 00:00:00 Shannon [id number] 2022-03-02 2022-03-02 Shannon [facility] [id number] [facility] 00:00:00 00:00:00 ALEENA Sutton: Health - Med ical [address] [place] [address] , Ph. 2022-03-02 2022-03-02 Outpatient Herman PRIV PRIV [id number] 00:00:00 00:00:00 Shannon [id number] 2022-03-01 2022-03-01 Outpatient [facility] PRIV PRIV [id number] [facility] 11:07:00 11:07:00 Ammon [id number] Medica l Results This patient has no known results.
[2023-07-12 16:01] LABS: Absolute Lymphocytes (CBC) 3.1 K/uL (0.7-4.9); Hematocrit 41.7 % (36.0-45.0); Lymphocytes % 28.6 % (15.3-44.8); MCV 82.4 fL (80-100); MPV 7.9 fL (7.6-11.3); Platelets 289 thou/uL (152-406); RBC Red Blood Cell Count 5.06 M/uL (3.86-4.86)
[2023-07-12 16:19] LABS: Magnesium 2.2 mg/dL (1.6-2.4); Potassium 4.3 mEq/L (3.5-5.1); Troponin High Sensitivity 9.5 pg/mL (<58.9)
[2023-07-12] MEDS ORDERED: ASPIRIN 81 MG CHEWABLE TABLET ONE (16:19)
--- NOTE | 2023-07-12 16:19 | RAD REPORT ---
EXAM DESCRIPTION: RAD - Chest Single View - 07/12/2023 3:55 pm CLINICAL HISTORY: CHEST PAIN Chest pain. COMPARISON: Chest Single View dated 01/05/2022 FINDINGS: Portable technique limits examination quality. Moderate bilateral pulmonary opacities, greater on the right probably represents asymmetric pulmonary edema or infection/ pneumonia. The heart is mildly enlarged. No displaced fractures.
[2023-07-12 17:00] LABS: Specific Gravity 1.006 (1.005-1.030); Urine Bacteria <20 /HPF (<20); Urine Bilirubin NEGATIVE (Negative); Urine Blood 2+ (Negative); Urine Clarity Extremely Turbid (Clear); Urine Color Colorless (Yellow); Urine Crystals Unidentified Few /HPF (None Seen); Urine Glucose NEGATIVE (Negative); Urine Protein NEGATIVE (Negative); Urine RBC 21-50 /HPF (None Seen); Urine Urobilinogen Normal (Normal); Urine WBC Clump Moderate /HPF (None Seen); Urine pH 6.5 (5.0-7.0)
[2023-07-12] MEDS ORDERED: Levofloxacin 750mg IV 750 MG/150 ML BAG IV ONE (17:23)
--- NOTE | 2023-07-12 18:08 | EDPHYS ---
Physician Documentation [facility] Name: Kely Harper Age: 73 yrs Sex: Female : 1950 Arrival Date: 07/12/2023 Time: 15:38 Bed 4 Private MD: ED Physician Yrn Plascencia HPI: 07/12 17:09 This 73 yrs old Female presents to ER via EMS with complaints of chest pain. ms3 17:09 73-year-old female with past medical history of cerebral palsy presents for chest ms3 discomfort via [facility]. EMS notes patient's blood pressure 155/86, temperature 99.1, room air oxygen saturation 86%. EMS notes patient to not to be on home oxygen. EMS states nursing facility gave 81 mg aspirin. Patient is nonverbal.. Historical: - Allergies: 15:49 Fentanyl; ph 15:49 PENICILLINS; ph - PMHx: 15:49 Cerebral Palsy; ph - Immunization history:: Adult Immunizations up to date. - Social history:: Smoking status: unknown. ROS: 17:09 Constitutional: Negative for fever, and chills. ms3 17:09 Respiratory: Negative for shortness of breath, cough, wheezing, and pleuritic chest pain, Abdomen/GI: Negative for abdominal pain, nausea, vomiting, diarrhea, and constipation, Skin: Negative for injury, rash, and discoloration. 17:09 Cardiovascular: Positive for chest pain. 17:09 All other systems are negative. Exam: 17:09 Constitutional: This is a well developed, well nourished patient who is awake, alert, ms3 and in no acute distress. Head/Face: Normocephalic, atraumatic. Neck: Trachea midline, no cervical lymphadenopathy. Supple, full range of motion without nuchal rigidity, or vertebral point tenderness. No Meningismus. Chest/axilla: Normal chest wall appearance and motion. Nontender with no deformity. Cardiovascular: Regular rate and rhythm with a normal S1 and S2. No gallops, murmurs, or rubs. Normal PMI, no JVD. No pulse deficits. Respiratory: Lungs have equal breath sounds bilaterally, clear to auscultation and percussion. No rales, rhonchi or wheezes noted. No increased work of breathing, no retractions or nasal flaring. Abdomen/GI: Soft, non-tender, with normal bowel sounds. No distension or tympany. No guarding or rebound. No evidence of tenderness throughout. Skin: Warm, dry with normal turgor. Normal color with no rashes, no lesions, and no evidence of cellulitis. Vital Signs: 15:57 BP 149 / 104; Pulse 117; Resp 18; Temp 99.1(O); Pulse Ox 100% on R/A; Weight 104.33 kg; me1 16:45 BP 144 / 88; Pulse 125; Resp 20; Pulse Ox 94% on R/A; ld1 19:13 BP 136 / 62; Pulse 114; Resp 20; Pulse Ox 96% on R/A; kd3 20:32 BP 145 / 78; Pulse 87; Resp 17; Temp 98; Pulse Ox 99% ; rv MDM: 15:41 Patient medically screened. ms3 17:09 Differential diagnosis: abnormal EKG, acute myocardial infarction, pneumonia, Atrial ms3 Fibrillation with RVR. 18:08 The patient was given aspirin in the Emergency Department. Data reviewed: vital signs, ms3 nurses notes, lab test result(s), EKG, radiologic studies, plain films, and as a result, I will admit patient. Consideration of Admission/Observation Patient was admitted/placed on observation. I considered the following discharge prescriptions or medication management in the emergency department Medications were administered in the Emergency Department. See MAR. Independent interpretation of the following test(s) in the Emergency Department EKG: See my EKG interpretation above X-Ray: My interpretation is CXR image reviewed by me shows edema vs PNA. Historians other than the Patient: EMS: [facility]. Counseling: I had a detailed discussion with the patient and/or guardian regarding the historical points, exam findings, and any diagnostic results supporting the discharge/admit diagnosis, lab results, radiology results, the need for further work-up and treatment in the hospital. ED course: Discussed case with ALEENA Chen on behalf of hospitalist team. She accepts admission.. 07/12 15:41 Order name: Basic Metabolic Panel; Complete Time: 16:32 ms3 07/12 15:41 Order name: CBC with Diff; Complete Time: 16:32 ms3 07/12 15:41 Order name: Magnesium; Complete Time: 16:32 ms3 07/12 15:41 Order name: Troponin HS; Complete Time: 16:32 ms3 07/12 16:08 Order name: Blood Culture Adult (2) ms3 07/12 16:08 Order name: Lactate w/ 2H reflex if indic.; Complete Time: 18:05 ms3 07/12 16:08 Order name: Ptt, Activated ms3 07/12 16:08 Order name: LFT's; Complete Time: 20:31 ms3 07/12 16:08 Order name: Urinalysis W/Microscopic; Complete Time: 17:12 ms3 07/12 16:34 Order name: BNP; Complete Time: 20:31 ms3 07/12 17:03 Order name: Urine Culture EDMS 07/12 19:02 Order name: Urinalysis w/ reflexes EDMS 07/12 19:02 Order name: Basic Metabolic Panel EDMS 07/12 19:02 Order name: Basic Metabolic Panel EDMS 07/12 19:02 Order name: Basic Metabolic Panel EDMS 07/12 19:02 Order name: Basic Metabolic Panel EDMS 07/12 19:02 Order name: CBC with Automated Diff EDMS 07/12 19:02 Order name: CBC with Automated Diff EDMS 07/12 19:02 Order name: CBC with Automated Diff EDMS 07/12 19:02 Order name: CBC with Automated Diff EDMS 07/12 19:02 Order name: Magnesium EDMS 07/12 19:02 Order name: Magnesium EDMS 07/12 19:02 Order name: Magnesium EDMS 07/12 19:02 Order name: Magnesium EDMS 07/12 15:41 Order name: XRAY Chest (1 view); Complete Time: 16:32 ms3 07/12 15:41 Order name: EKG; Complete Time: 15:42 ms3 07/12 19:02 Order name: Regular EDMS 07/12 15:41 Order name: Cardiac monitoring; Complete Time: 15:48 ms3 07/12 15:41 Order name: EKG - Nurse/Tech; Complete Time: 15:48 ms3 07/12 15:41 Order name: IV Saline Lock; Complete Time: 15:48 ms3 07/12 15:41 Order name: Labs collected and sent; Complete Time: 15:48 ms3 07/12 15:41 Order name: O2 Per Protocol; Complete Time: 15:48 ms3 07/12 15:41 Order name: O2 Sat Monitoring; Complete Time: 15:48 ms3 07/12 16:08 Order name: Accucheck; Complete Time: 16:50 ms3 07/12 16:08 Order name: IV Saline Lock - Large Bore; Complete Time: 16:50 ms3 07/12 16:08 Order name: Vital Signs; Complete Time: 16:50 ms3 07/12 17:22 Order name: Labs - recollect needed: recollect light green and big green and blood bd culture.; Complete Time: 19:14 Administered Medications: 16:10 Drug: Aspirin PO Chewable Tablet 243 mg Route: PO; me1 16:50 Follow up: Response: No adverse reaction me1 17:16 Drug: LevaQUIN IVPB 750 mg Route: IVPB; Site: right antecubital; me1 19:28 Drug: Metoprolol IVP 5 mg Route: IVP; Site: right antecubital; rv Disposition: 19:27 Critical Care:. ms3 Disposition Summary: 07/12/23 18:08 Hospitalization Ordered Hospitalization Status: Inpatient Admission ms3 Provider: Stephen Mcneill ms3 Location: Telemetry/[facility] (Inpatient) ms3 Condition: Stable ms3 Problem: new ms3 Symptoms: are unchanged ms3 Bed/Room Type: Standard ms3 Room Assignment: 229(07/12/23 19:57) cg Diagnosis - Other pneumonia, unspecified organism ms3 - Acute and chronic respiratory failure with hypoxia ms3 - Unspecified atrial fibrillation ms3 - Essential (primary) hypertension ms3 Forms: - Medication Reconciliation Form ms3 - SBAR form ms3 - Leadership Thank You Letter ms3 Critical care time excluding procedures: 19:27 Critical care time: Bedside Care: 30 minutes, Consultation: 10 minutes. Total time: 40 ms3 minutes Signatures: Dispatcher [employer] EDMacrina Ledesma Patricia, RN RN ph Garcia, Cindy RN RN Grzegorz Edward RN RN rv Sims, Marcus, DO DO ms3 Jeimy Candelaria RN RN me1 Corrections: (The following items were deleted from the chart) 19:02 16:08 PROTIME (+INR)+COAG.LAB.BRZ ordered. EDMS EDMS 19:57 18:08 ms3 cg
--- NOTE | 2023-07-12 18:08 | ER ---
Nurse's Notes [facility] Name: Kely Harper Age: 73 yrs Sex: Female : 1950 Arrival Date: 07/12/2023 Time: 15:38 Bed 4 Private MD: Diagnosis: Other pneumonia, unspecified organism;Acute and chronic respiratory failure with hypoxia;Unspecified atrial fibrillation;Essential (primary) hypertension Presentation: 07/12 15:57 Chief complaint: EMS states: chest pain. Coronavirus screen: Vaccine status: Patient me1 reports receiving the 2nd dose of the covid vaccine. At this time, the client does not indicate any symptoms associated with coronavirus-19. Ebola Screen: No symptoms or risks identified at this time. Initial Sepsis Screen: Does the patient meet any 2 criteria? No. Patient's initial sepsis screen is negative. Does the patient have a suspected source of infection? No. Patient's initial sepsis screen is negative. Risk Assessment: Do you want to hurt yourself or someone else? Patient reports no desire to harm self or others. Onset of symptoms is unknown. 15:57 Method Of Arrival: EMS: [place] [id number] 15:57 Acuity: NO 2 me1 Triage Assessment: 15:57 General: Appears uncomfortable, obese, Behavior is calm, cooperative, appropriate for me1 age. Pain: Complains of pain in chest Unable to use pain scale. nonverbal. Patient does grab her chest when asked if she is hurting anywhere. Neuro: Level of Consciousness is awake, alert, obeys commands, Oriented to person, situation, Speech nonverbal. Cardiovascular: Capillary refill < 3 seconds Patient's skin is warm and dry. Respiratory: Airway is patent Respiratory effort is even, unlabored, Respiratory pattern is regular, symmetrical. Historical: - Allergies: 15:49 Fentanyl; ph 15:49 PENICILLINS; ph - PMHx: 15:49 Cerebral Palsy; ph - Immunization history:: Adult Immunizations up to date. - Social history:: Smoking status: unknown. Screenin:05 [facility] ED Fall Risk Assessment (Adult) Score/Fall Risk Level 0 - 2 = Low Risk. Abuse me1 screen: Denies threats or abuse. Nutritional screening: No deficits noted. Tuberculosis screening: No symptoms or risk factors identified. Assessment: 16:05 General: See triage assessment. . me1 Vital Signs: 15:57 BP 149 / 104; Pulse 117; Resp 18; Temp 99.1(O); Pulse Ox 100% on R/A; Weight 104.33 kg; me1 16:45 BP 144 / 88; Pulse 125; Resp 20; Pulse Ox 94% on R/A; ld1 19:13 BP 136 / 62; Pulse 114; Resp 20; Pulse Ox 96% on R/A; kd3 20:32 BP 145 / 78; Pulse 87; Resp 17; Temp 98; Pulse Ox 99% ; rv ED Course: 15:41 Patient arrived in ED. ms3 15:41 Yrn Plascencia DO is Attending Physician. ms3 15:56 Jeimy Candelaira, RN is Primary Nurse. me1 15:56 XRAY Chest (1 view) In Process Unspecified. EDMS 15:57 Arm band placed on Patient placed in an exam room. me1 16:03 Triage completed. me1 16:05 Patient has correct armband on for positive identification. Fall risk band placed. Bed me1 in low position. Call light in reach. Side rails up X2. Provided Education on: on POC. . 16:05 No provider procedures requiring assistance completed. Maintain EMS IV. Dressing me1 intact. Good blood return noted. Site clean \T\ dry. Gauge \T\ site: 20gauge RAC. 16:43 Urinalysis W/Microscopic Sent. me1 17:09 BNP Sent. me1 17:09 LFT's Sent. me1 17:09 Blood Culture Adult (2) Sent. me1 17:09 Lactate w/ 2H reflex if indic. Sent. me1 17:09 Ptt, Activated Sent. me1 18:07 Stephen Mcneill is Hospitalizing Provider. ms3 20:32 Patient admitted, IV remains in place. rv Administered Medications: 16:10 Drug: Aspirin PO Chewable Tablet 243 mg Route: PO; me1 16:50 Follow up: Response: No adverse reaction me1 17:16 Drug: LevaQUIN IVPB 750 mg Route: IVPB; Site: right antecubital; me1 19:28 Drug: Metoprolol IVP 5 mg Route: IVP; Site: right antecubital; rv Medication: 16:05 VIS not applicable for this client. me1 Outcome: 18:08 Decision to Hospitalize by Provider. ms3 20:32 Admitted to Med/surg accompanied by tech, via stretcher, room 229, with chart, Report rv called to SALON LEADER 20:32 Condition: stable 20:32 Instructed on the need for admit. 20:33 Patient left the ED. rv Signatures: Dispatcher [employer] EDSharon Pollard, RN RN Grzegorz Edward RN RN rv Yrn Plascencia, DO [place]IL[place] ms3 Arlen Plascencia RN RN ld1 Eunice Espana RN RN 3 Jeimy Candelaria RN RN la1 Corrections: (The following items were deleted from the chart) 19:02 17:09 PROTIME (+INR)+[email or web address] drawn and sent. [address]
--- NOTE | 2023-07-12 18:56 | P.HP ---
Certification for Inpatient Patient admitted to: Inpatient With expected LOS: <2 Midnights Patient will require the following post-hospital care: None Practitioner: I am a practitioner with admitting privileges, knowledge of patient current condition, hospital course, and medical plan of care. Services: Services provided to patient in accordance with Admission requirements found in Title 42 Section 412.3 of the Code of Federal Regulations Patient History Date of Service: 07/13/23 Reason for admission: Hypoxia History of Present Illness: 73-year-old female with a past medical history of cerebral palsy presents to the emergency room via EMS with complaint of chest pain. ER evaluation blood pressure 155/86, temperature 99.1, O2 sats 86% on room air, heart rate on arrival was 117, she reports associated shortness of breath, denies cough. HPI limited due to Cerebral palsy, HPI per medical record, ER course patient was given aspirin 81 mg per EMS patient is not on home O2, patient meets SIRS criteria due to hypoxia, elevated heart rate, elevated temperature. Secondary to multilobular pneumonia, plan to admit for acute hypoxic respiratory failure secondary to pneumonia. Versus acute on chronic heart failure, chest x-ray Moderate bilateral pulmonary opacities, greater on the right probably represents asymmetric pulmonary edema or infection/ pneumonia. The heart is mildly enlarged. No displaced fractures. Laboratory evaluation UTI leukoesterase greater than 500 with hematuria, BNP 3286, troponin 9.5, hypo-albumin 3.1, CBC unremarkable, CMP sodium potassium within normal limit. Allergies fentanyl Allergy (Verified 01/05/22 08:53) Itching Penicillins Allergy (Verified 01/05/22 08:53) Itching Home Medications: Acetaminophen [Tylenol] 2 tab PO Q6H PRN 01/05/22 Ascorbic Acid 1 tab PO DAILY 01/05/22 Aspirin 1 tab PO DAILY 01/05/22 Buspirone HCl [Buspar] 10 mg PO TID 01/05/22 Cholecalciferol (Vitamin D3) [Vitamin D3] 5,000 unit PO DAILY 01/05/22 Divalproex Sodium [Depakote Sprinkle] 2 cap PO BID 01/05/22 Docusate Sodium 1 tab PO DAILY 01/05/22 Lactulose 30 ml PO BEDTIME 01/05/22 Multivitamin 1 tab PO DAILY 01/05/22 Simvastatin 20 mg PO BEDTIME 01/05/22 Tramadol HCl [Ultram] 1 tab PO BEDTIME 01/05/22 Loratadine [Claritin*] 10 mg PO DAILY 07/13/23 Menthol [Biofreeze] 1 appl TP PRN PRN 07/13/23 guaiFENesin [Shirley-Tussin] 10 ml PO Q6H PRN 07/13/23 - Past Medical/Surgical History Diabetic: No -: Cerebral palsy -: Muscle contractures -: Chronic pain syndrome -: Deaf -: Cognitive communication deficit -: Vitamin D deficiency -: Aphasia -: Intellectual disability Review of Systems 10-point ROS is otherwise unremarkable Physical Examination - Physical Exam General: Alert, In no apparent distress, Other (nonverbal) HEENT: Atraumatic, Normocephalic, PERRLA Neck: Supple, 2+ carotid pulse no bruit, JVD not distended Respiratory: Clear to auscultation bilaterally, Normal air movement, Other (crackles bases) Cardiovascular: No edema, Normal pulses, Irregular heart rate/rhythm Capillary refill: <2 Seconds Gastrointestinal: Normal bowel sounds, Soft and benign Musculoskeletal: No clubbing, No swelling Integumentary: No rashes, No breakdown Neurological: Normal tone, Sensation intact, Other (cerebral palsy nonverbal) - Studies Laboratory Data (last 24 hrs) 07/12/23 07/12/23 15:48 15:48 WBC 10.80 Hgb 13.7 Hct 41.7 Plt Count 289 Sodium 142 Potassium 4.3 BUN 19 H Creatinine 0.70 Glucose 89 Magnesium 2.2 Assessment and Plan - Plan Assessment plan SIRS criteria due to hypoxia, elevated heart rate, elevated temperature. Secondary to multilobular pneumonia, Acute on chronic heart failure unknown baseline acute hypoxic respiratory failure secondary to pneumonia. Versus acute on chronic heart failure, Acute cystitis with hematuria Cerebral palsy nonverbal DVT Assessment plan SIRS criteria due to hypoxia, elevated heart rate, elevated temperature. Secondary to multilobular pneumonia, Blood cultures, urine cultures, IV antibiotics, gentle IV fluids Moderate bilateral pulmonary opacities, greater on the right probably represents asymmetric pulmonary edema or infection/ pneumonia. The heart is mildly enlarged. No displaced fractures. Acute on chronic heart failure unknown baseline Cardiology consult, telemetry Cardiac diet, IO, daily weight BNP 3286, troponin 9.5, trend BNP, acute hypoxic respiratory failure secondary to pneumonia. Versus acute on chronic heart failure, O2 2 L keep sats greater than 92%, Marissa Acute cystitis with hematuria IV antibiotics, urine culture UTI leukoesterase greater than 500 renal US Cerebral palsy nonverbal Fall precautions speech eval for swallow eval DVT Lovenox Cardiac diet Full code Discharge Plan: Home Plan to discharge in: 48 Hours - Advance Directives Does patient have a Living Will: No Does patient have a Durable POA for Healthcare: No - Code Status/Comfort Care Code Status: Full Code Physician Review: Patient Assessed, Agree with Above Assessment and Plan Critical Care: No Time Spent Managing Pts Care (In Minutes): 50
[2023-07-12] MEDS ORDERED: ONDANSETRON 4 MG/2 ML VIAL IV PRN (19:00)
[2023-07-12] MEDS ORDERED: ALBUTEROL 2.5 MG/3 ML NEB SOL NEB PRN (19:00)
[2023-07-12] MEDS ORDERED: ACETAMINOPHEN 500 MG TAB PO PRN (19:00)
[2023-07-12] MEDS ORDERED: METOPROLOL TARTRATE 5 MG/5 ML INJ IV ONE (19:34)
[2023-07-12 20:20] LABS: AST/SGOT 10 U/L (15-37); Albumin 3.1 g/dL (3.4-5.0); Alkaline Phosphatase 69 U/L (45-117); Bilirubin Direct 0.1 mg/dL (0-0.2); Bilirubin Indirect, Calculated 0.2 mg/dL (0.2-0.8); Bilirubin Total 0.3 mg/dL (0.2-1.0); Protein, Total 6.6 g/dL (6.4-8.2)
[2023-07-12 20:21] LABS: ALT/SGPT < 10 U/L (13-56)
[2023-07-12] MEDS: ALPRAZOLAM 0.25 MG TABLET PO PRN (22:05)
[2023-07-12 22:47] VITALS: BMI 40.7
[2023-07-13 03:39] LABS: Absolute Lymphocytes (CBC) 3.1 K/uL (0.7-4.9); Hematocrit 37.1 % (36.0-45.0); Lymphocytes % 32.4 % (15.3-44.8); MCV 82.9 fL (80-100); MPV 8.3 fL (7.6-11.3); Platelets 240 thou/uL (152-406); RBC Red Blood Cell Count 4.48 M/uL (3.86-4.86)
[2023-07-13 03:59] LABS: Magnesium 1.9 mg/dL (1.6-2.4); Potassium 3.7 mEq/L (3.5-5.1)
--- NOTE | 2023-07-13 07:30 | RAD REPORT ---
EXAM DESCRIPTION: US - Renal Ultrasound-Complete - 07/13/2023 1:09 am CLINICAL HISTORY: Hematuria COMPARISON: None FINDINGS: The right kidney measures 9 cm with a normal echotexture. The left kidney measures 10 cm with a normal echotexture. Hydronephrosis is not seen. No gross abnormality of bladder IMPRESSION: Unremarkable renal ultrasound.
[2023-07-13] MEDS ORDERED: ENOXAPARIN 40 MG/0.4 ML SQ SCH (09:00)
[2023-07-13] MEDS ORDERED: KCL 20 MEQ/100 mL IVPB 20 MEQ/100 ML BAG IV SCH (09:00)
[2023-07-13] MEDS ORDERED: POTASSIUM 25 MEQ EFFERV TAB PO ONE (09:00)
[2023-07-13] MEDS ORDERED: ALBUTEROL 2.5 MG/3 ML NEB SOL NEB PRN (11:00)
--- NOTE | 2023-07-13 12:58 | EKG ---
Test Date: 2023-07-12 Test Time: 15:47:49 Heating Mechanic: MEASUREMENT RESULTS: Intervals: Rate: 129 CO: QRSD: 64 QT: 296 QTc: 433 [place]: P: CO: QRS: 63 T: 45 INTERPRETIVE STATEMENTS: Atrial fibrillation with rapid ventricular response Anteroseptal infarct, age undetermined Abnormal ECG Compared to ECG 01/05/2022 06:51:48 Myocardial infarct finding now present Sinus rhythm no longer present First degree AV block no longer present Electronically Signed On 07-13-23 12:56:08 CDT by Joaquin Joseph
--- NOTE | 2023-07-13 14:31 | P.CNS ---
Date of Consult: 07/13/23 Reason for Consult: UTI Requesting Physician: richie castillo Chief Complaint: Hypoxia History of Present Illness: Patient is a 73 yo female with a history of cerebral palsy who presented to the ED with complaints of shortness of breath and cough. She was found to be hypoxic, tachycardic and elevated blood pressure. XR findings suggestive of bilateral pneumonia. Urine culture with gram negative rods. Patient was given a dose of levaquin in the ED. Infectious disease was consulted. Allergies fentanyl Allergy (Verified 01/05/22 08:53) Itching Penicillins Allergy (Verified 01/05/22 08:53) Itching Home medications list reviewed: Yes Home Medications: Acetaminophen [Tylenol] 2 tab PO Q6H PRN 01/05/22 Ascorbic Acid 1 tab PO DAILY 01/05/22 Aspirin 1 tab PO DAILY 01/05/22 Buspirone HCl [Buspar] 5 mg PO TID 01/05/22 Cholecalciferol (Vitamin D3) [Vitamin D3] 5,000 unit PO DAILY 01/05/22 Divalproex Sodium [Depakote Sprinkle] 2 cap PO BID 01/05/22 Docusate Sodium 1 tab PO DAILY 01/05/22 Lactulose 30 ml PO BEDTIME 01/05/22 Multivitamin 1 tab PO DAILY 01/05/22 Simvastatin 20 mg PO BEDTIME 01/05/22 Tramadol HCl [Ultram] 1 tab PO BID PRN 01/05/22 Loratadine [Claritin*] 10 mg PO DAILY 07/13/23 Menthol [Biofreeze] 1 appl TP PRN PRN 07/13/23 guaiFENesin [Shirley-Tussin] 10 ml PO Q6H PRN 07/13/23 - Past Medical/Surgical History Diabetic: No -: Cerebral palsy -: Muscle contractures -: Chronic pain syndrome -: Deaf -: Cognitive communication deficit -: Vitamin D deficiency -: Aphasia -: Intellectual disability -: HLD - Social History Smoking Status: Unknown if ever smoked Place of Residence: Residential Review of Systems is unable to be obtained Physical Examination Temp Pulse Resp BP Pulse Ox 97.6 F 94 H 16 121/78 95 07/13/23 12:00 07/13/23 12:00 07/13/23 12:00 07/13/23 12:00 07/13/23 12:00 General: In no apparent distress, Oriented x1 HEENT: Atraumatic Neck: Supple, JVD not distended Respiratory: Normal air movement (on 2L NC), Crackles/rales Cardiovascular: No edema, Regular rate/rhythm Gastrointestinal: Normal bowel sounds, No tenderness Musculoskeletal: Contractures Integumentary: No rashes Laboratory Data (last 24 hrs) 07/12/23 07/12/23 15:48 15:48 WBC 10.80 Hgb 13.7 Hct 41.7 Plt Count 289 Sodium 142 Potassium 4.3 BUN 19 H Creatinine 0.70 Glucose 89 Magnesium 2.2 Imagings Data: - Reviewed Conclusions/Impression: Problem List Acute Cystitis Acute on Chronic CHF Cerebral palsy Muscle contractures Bilateral pneumonia Acute Cystitis - Renal ultrasound unremarkable - Urine culture 07/12: Gram negative rods - Given dose of levaquin in the ED on 07/12 - Current not on any antibiotics - Blood cultures 07/12: Pending - No leukocytosis. Afebrile. XR chest 07/13: "Moderate bilateral pulmonary opacities, greater on the right pr obably represents asymmetric pulmonary edema or infection/ pneumonia. The heart is mildly enlarged. No displaced fractures." Recommendations - UTI: Continue antibiotic therapy for 7 days. - Start on Rocephin for now. - Will follow up with final urine culture results and adjust antibiotics as needed - Nutritional supplementation - Pressure offloading measures - Aspiration precautions Case discussed with Davian Padilla
[2023-07-13] MEDS ORDERED: NA CHLORIDE 0.9% 50 ML ONE (15:53)
--- NOTE | 2023-07-13 16:58 | P.PN ---
Subjective Date of Service: 07/13/23 Chief Complaint: Hypoxia Patient with cerebral palsy and not able to give any subjective complaint. No reported agitation. Physical Examination - Vital Signs Temperature: 98.1 F Blood Pressure: 143/73 Pulse: 113 Respirations: 16 Pulse Ox (%): 94 Assessment And Plan - Plan Physical Exam General: Alert, In no apparent distress, Nonverbal Neck: Supple, JVD not distended Respiratory: Clear to auscultation bilaterally, Normal air movement, Other (crackles bases) Cardiovascular: No edema, Normal pulses, Irregular heart rate/rhythm Gastrointestinal: Normal bowel sounds, Soft and benign Musculoskeletal: No clubbing, No swelling Integumentary: No rashes, No breakdown Neurological: Normal tone, nonverbal. Assessment and plan Sepsis acute hypoxic respiratory failure secondary to pneumonia. Multilobular pneumonia likely secondary to aspiration. Acute cystitis with hematuria Cerebral palsy Assessment plan Sepsis Secondary to UTI and aspiration pneumonia IV antibiotics Fall blood cultures, urine culture. Gentle IV fluids Acute hypoxic respiratory failure secondary to pneumonia. IV meropenem. Speech therapy consult for swallow evaluation DuoNebs Supplemental oxygen. Dysphagia diet Acute cystitis with hematuria History of ESBL E. coli UTI Antibiotics switched to IV meropenem Follow urine culture. Cerebral palsy nonverbal Fall precautions speech therapy consult for swallow eval DVT Lovenox Cardiac diet Full code
[2023-07-13] MEDS ORDERED: CEFTRIAXONE 1,000 MG in NA CHLORIDE 0.9% 50 ML IVPB SCH (17:00)
[2023-07-13] MEDS ORDERED: SOTALOL HCL 80 MG TAB PO ONE (19:29)
[2023-07-13] MEDS: APIXABAN 5 MG TABLET PO SCH (20:25)
[2023-07-13] MEDS: Meropenem 1,000 MG in NA CHLORIDE 0.9% 100 ML IV SCH (20:26)
[2023-07-13] MEDS: ALPRAZOLAM 0.25 MG TABLET PO PRN (20:32)
--- NOTE | 2023-07-13 21:06 | CON ---
Date of Consultation: 07/13/2023 Reason For Consultation: Questionable heart failure. History Of Present Illness: 73-year-old female, history of cerebral palsy, presented to emergency ro om with cough and shortness of breath. Temperature was slightly elevated at 99.1 with oxygen saturat ion of 86%. Diagnosed with pneumonia and her BNP was elevated, so I was asked to evaluate her for po ssible congestive heart failure. Saw by bedside. She was lying flat. There is no orthopnea. No lo wer extremity edema. No chest pain. Patient is very poor historian. Past Medical History: As outlined above in the HPI. Medications: Refer to reconciliation sheet for detailed list. Allergies: FENTANYL AND PENICILLIN. Family History: No premature coronary artery disease or cancer. Social History: She does not smoke or drink. Does not use any drugs. Review of Systems: All systems were reviewed, they were negative except what mentioned in HPI. Physical Examination: Vital signs: Reviewed. Head and Neck: Pupils are equal, reactive to light. Intact eye movements. No JVD. No cervical lym phadenopathy. Neck is supple. Thyroid is not enlarged, Lungs: She has rhonchi bilaterally. No accessory muscle use or muscle retraction. Heart: Irregularly irregular. No extra sounds. Abdomen: Soft, nontender. Bowel sounds positive. No organomegaly. No masses or hernia. No rigidi ty or rebound. Extremities: No edema, clubbing, or cyanosis. Intact pulses. Skin: No rash. No nodule. Neurologic: Alert, awake, and no new acute focal deficits appreciated. She has cerebral palsy with chronic deficits. Lymph Nodes: No cervical or axillary lymphadenopathy. Investigations: BUN 15, creatinine 0.52, hemoglobin is 12.2. Assessment And Recommendations: 1.Atrial fibrillation. Heart rate is fast. Start on sotalol 80 mg twice a day and also on Eliquis 5 mg twice a day unless it is contraindicated and also obtain an echocardiogram. 2.Elevated NT-proBNP. Obtain an echocardiogram. She does not look fluid overloaded. Likely, her s hortness of breath is due to pneumonia. 3.Pneumonia, on antibiotics. SR/MODL Voice ID: [id number] Report ID: [id number]
[2023-07-14 03:31] LABS: Absolute Lymphocytes (CBC) 2.4 K/uL (0.7-4.9); Hematocrit 34.5 % (36.0-45.0); Lymphocytes % 30.2 % (15.3-44.8); MPV 8.3 fL (7.6-11.3); Platelets 227 thou/uL (152-406); RBC Red Blood Cell Count 4.15 M/uL (3.86-4.86)
[2023-07-14 04:04] LABS: Magnesium 1.9 mg/dL (1.6-2.4); Potassium 3.9 mEq/L (3.5-5.1)
[2023-07-14] MEDS: SOTALOL HCL 80 MG TAB PO SCH ×2 (06:45→18:04)
--- NOTE | 2023-07-14 08:36 | P.PN ---
Date of Service: 07/14/23 Chief Complaint: Hypoxia Subjective: Patient seen and examined at bedside. Nonlabored respirations on 2L nasal cannula. In no apparent distress. No acute events reported overnight. Physical Examination Temp Pulse Resp BP Pulse Ox 97.3 F 67 18 140/72 94 07/14/23 04:00 07/14/23 04:00 07/14/23 04:00 07/14/23 04:00 07/14/23 04:00 General: In no apparent distress, Oriented x1. nonverbal. HEENT: Atraumatic Neck: Supple, JVD not distended Respiratory: Normal air movement. Diminished. On 2L NC. Cardiovascular: No edema, irregular rhythm. Gastrointestinal: Normal bowel sounds, No tenderness Musculoskeletal: Contractures Integumentary: No rashes Laboratory Data - Reviewed Microbiology Data - Reviewed Imagings Data: - Reviewed Medications List: Reviewed Assessment and Plan Problem List Acute Cystitis Acute on Chronic CHF Cerebral palsy Muscle contractures Atrial Fibrillation Mild PCM Acute Cystitis - Renal ultrasound unremarkable - Urine culture 07/12: Escherichia coli ESBL - Started on Meropenem 07/13 - Blood cultures 07/12: No growth to date - No leukocytosis. Afebrile. XR chest 07/13: "Moderate bilateral pulmonary opacities, greater on the right probably represents asymmetric pulmonary edema or infection/ pneumonia. The heart is mildly enlarged. No displaced fractures." Recommendations - ESBL UTI: Continue Meropenem x 7 days (07/13-07/20) - Nutritional supplementation - Pressure offloading measures Case discussed with Davian Padilla
[2023-07-14] MEDS ORDERED: POTASSIUM 25 MEQ EFFERV TAB PO ONE (09:00)
[2023-07-14] MEDS: Meropenem 1,000 MG in NA CHLORIDE 0.9% 100 ML IV SCH ×2 (09:05→18:04)
[2023-07-14] MEDS: APIXABAN 5 MG TABLET PO SCH ×2 (09:06→21:12)
--- NOTE | 2023-07-14 12:37 | EKG ---
Test Date: 2023-07-13 Test Time: 20:04:21 [employer]: [place] MEASUREMENT RESULTS: Intervals: Rate: 115 TN: QRSD: 66 QT: 314 QTc: 434 [place]: P: TN: QRS: 41 T: 49 INTERPRETIVE STATEMENTS: Atrial fibrillation with rapid ventricular response Low voltage QRS Cannot rule out Anteroseptal infarct, age undetermined Abnormal ECG Compared to ECG 07/12/2023 15:47:49 Low QRS voltage now present Myocardial infarct finding still present Electronically Signed On 07-14-23 12:36:47 CDT by Joaquin Joseph
--- NOTE | 2023-07-14 12:57 | ECHO ---
HEIGHT: 5 ft 3 in WEIGHT: 230 lb 0 oz DATE OF STUDY: 07/14/[address]: Joaquin Joseph 2-DIMENSIONAL: YES M.MODE: YES DOPPLER: YES COLOR FLOW: YES TDS: PORTABLE: YES DEFINITY: BUBBLE STUDY: DIAGNOSIS: CONGESTIVE HEART FAILURE CARDIAC HISTORY: CATHERIZATION: SURGERY: PROSTHETIC VALVE: PACEMAKER: MEASUREMENTS (cm) DIASTOLIC (NORMALS) SYSTOLIC (NORMALS) IVSd 0.9 (0.6-1.2) LA Diam 2.7 (1.9-4.0) LVEF 56% LVIDd 3.3 (3.5-5.7) LVIDs 2.4 (2.0-3.5) %FS 28% LVPWd 1.1 (0.6-1.2) Ao Diam 2.4 (2.0-3.7) 2 DIMENSIONAL ASSESSMENT: RIGHT ATRIUM: NORMAL LEFT ATRIUM: NORMAL RIGHT VENTRICLE: NORMAL LEFT VENTRICLE: NORMAL TRICUSPID VALVE: MILD TRICUSPID REGURGITATION MITRAL VALVE: MILD MITRAL REGURGITATION PULMONIC VALVE: NORMAL AORTIC VALVE: NORMAL PERICARDIAL EFFUSION: NONE AORTIC ROOT: NORMAL LEFT VENTRICULAR WALL MOTION: NORMAL DOPPLER/COLOR FLOW: SEE BELOW COMMENTS: 1. NORMAL LEFT VENTRICULAR EJECTION FRACTION 55-60% 2. DIASTOLIC DYSFUNCTION 3. MILD MITRAL REGURGITATION 4. MILD TRICUSPID REGURGITATION TECHNOLOGIST: GARRET MITCHELL
--- NOTE | 2023-07-14 15:13 | RAD REPORT ---
EXAM DESCRIPTION: RAD - Hip Left 2 View - 07/14/2023 2:58 pm CLINICAL HISTORY: Left hip pain status FINDINGS: No fracture or dislocation is seen. Marked osteoarthritis involves left hip consisting of joint space obliteration, osteophytes, subchond ral cysts and subchondral sclerosis. The femoral head appears somewhat flattened which may indicate avascular necrosis.
--- NOTE | 2023-07-14 18:15 | P.PN ---
Subjective Date of Service: 07/14/23 Chief Complaint: Hypoxia Patient is complaining of left hip pain. Patient reports pain in the left hip with turning. Physical Examination - Vital Signs Temperature: 98.1 F Blood Pressure: 121/80 Pulse: 76 Respirations: 16 Pulse Ox (%): 95 - Studies Microbiology Data (last 24 hrs): 07/12/23 16:48 Clean Catch Urine Ross Count - Final >100,000 CFU/ML. 07/12/23 16:48 Clean Catch Urine - Final Escherichia Coli Esbl Gram Neg Lyle Assessment And Plan - Plan Physical Exam General: Alert, In no apparent distress, Nonverbal Respiratory: Clear to auscultation bilaterally, Normal air movement, Other (crackles bases) Cardiovascular: No edema, Normal pulses, Irregular heart rate/rhythm Gastrointestinal: Normal bowel sounds, Soft and benign Musculoskeletal: No clubbing, No swelling. Tenderness lateral aspect of left hip. Integumentary: No rashes, No breakdown Neurological: Normal tone, nonverbal. Assessment and plan Sepsis acute hypoxic respiratory failure secondary to pneumonia. Multilobular pneumonia likely secondary to aspiration. Acute cystitis with hematuria Cerebral palsy Assessment plan Sepsis Secondary to UTI and aspiration pneumonia IV antibiotics Urine culture is growing ESBL E. coli. Sepsis resolved. Acute hypoxic respiratory failure secondary to pneumonia. IV meropenem. Speech therapy input appreciated. Mechanical soft, ground meat recommended. DuoNebs Supplemental oxygen as needed. Acute cystitis with hematuria History of ESBL E. coli UTI Continue IV meropenem Midline to be placed for outpatient IV antibiotics Cerebral palsy nonverbal Fall precautions speech therapy consult for swallow eval. 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 Supportive measures. Pain management as needed DVT Lovenox Cardiac diet Full code
[2023-07-14] MEDS ORDERED: HYDROCODONE/APAP 5/325 MG TAB PO PRN (18:18)
--- NOTE | 2023-07-14 18:42 | PN ---
Date of Progress Note: 07/14/2023 Subjective: Seen by bedside. She is doing well. No new complaints. Review of Systems: No chest pain, shortness of breath, orthopnea, cough. No nausea, vomiting, diarrhea. Heart rate is much better, on sotalol. All other systems reviewed and they were negative. Physical Examination: Vital Signs: Reviewed. Head and Neck: Pupils are equal, reactive to light. Intact eye movements. No JVD. No cervical lym phadenopathy. Neck is supple. Thyroid is not enlarged. Lungs: Rhonchi bilaterally. No accessory muscle use or muscle retraction. Heart: Irregularly irregular. No extra sounds. Abdomen: Soft, nontender. Bowel sounds positive. No organomegaly. No masses or hernia. No rigidi ty or rebound. Extremities: No edema, clubbing, or cyanosis. Intact pulses. Skin: No rash. Neurologic: Alert, awake with no acute focal deficits appreciated. She has cerebral palsy with old deficits. Lymph Nodes: No cervical or axillary lymphadenopathy. Investigations: Labs were reviewed. Assessment/recommendations: 1.Atrial fibrillation with rapid ventricular response. Now, her rate is controlled. Continue sotal ol, hoping to convert to sinus rhythm on that and continue Eliquis. 2.Shortness of breath due to pneumonia. I do not believe there is a component of acute heart failur e at this moment. After the third dose of sotalol, please check an EKG to assure stability. Cardiology will sign off and follow up as an outpatient. SR/MODL Voice ID: [id number] Report ID: [id number]
[2023-07-14] MEDS: ALPRAZOLAM 0.25 MG TABLET PO PRN (21:12)
[2023-07-15] MEDS: Meropenem 1,000 MG in NA CHLORIDE 0.9% 100 ML IV SCH ×3 (01:15→17:44)
[2023-07-15 04:08] LABS: Potassium 4.2 mEq/L (3.5-5.1)
[2023-07-15 04:40] LABS: Absolute Lymphocytes (CBC) 2.8 K/uL (0.7-4.9); Hematocrit 38.6 % (36.0-45.0); Lymphocytes % 24.4 % (15.3-44.8); MCV 82.4 fL (80-100); MPV 8.3 fL (7.6-11.3); Platelets 263 thou/uL (152-406); RBC Red Blood Cell Count 4.69 M/uL (3.86-4.86)
[2023-07-15] MEDS: SOTALOL HCL 80 MG TAB PO SCH ×2 (05:52→17:44)
[2023-07-15] MEDS: APIXABAN 5 MG TABLET PO SCH ×2 (07:44→20:37)
--- NOTE | 2023-07-15 08:59 | P.PN ---
Date of Service: 07/15/23 Chief Complaint: Hypoxia Subjective: Improving Patient seen and examined at bedside. In no apparent distress. No acute events reported overnihgt. Physical Examination Temp Pulse Resp BP Pulse Ox 96.9 F 75 18 149/65 H 95 07/15/23 08:00 07/15/23 08:00 07/15/23 08:00 07/15/23 08:00 07/15/23 08:00 General: In no apparent distress, Oriented x1. nonverbal. HEENT: Atraumatic Neck: Supple, JVD not distended Respiratory: Normal air movement. Diminished. On 2L NC. Cardiovascular: No edema, irregular rhythm. Gastrointestinal: Normal bowel sounds, No tenderness Musculoskeletal: Contractures Integumentary: No rashes Laboratory Data - Reviewed Microbiology Data - XR Left Hip 07/14: "FINDINGS: No fracture or dislocation is seen. Marked osteoarthritis involves left hip consisting of joint space obliteration, osteophytes, subchondral cysts and subchondral sclerosis. The femoral head appears somewhat flattened which may indicate avascular necrosis." Imagings Data: - Reviewed Medications List: Acetaminophen (Acetaminophen 500 Mg Tab) 500 mg PO Q4HP PRN PRN Reason: Pain scale 2-4 (Mild) Hydrocodone Bitart/Acetaminophen (Hydrocodone/Apap 5/325 Mg Tab) 1 tab PO Q6H PRN PRN Reason: Pain scale 5-7 (Moderate) Albuterol Sulfate (Albuterol 2.5 Mg/3 Ml Neb Lorrie) 2.5 mg NEB [id number] PRN PRN Reason: SHORTNESS OF BREATH Alprazolam (Alprazolam 0.25 Mg Tablet) 0.25 mg PO BEDTIME PRN PRN PRN Reason: INSOMNIA Last Admin: 07/14/23 21:12 Dose: 0.25 mg Apixaban (Apixaban 5 Mg Tablet) 5 mg PO BID [facility] Last Admin: 07/15/23 07:44 Dose: 5 mg Meropenem 1,000 mg/ Sodium (Chloride) 100 mls @ 200 mls/hr IV Q8HR SHELLI Last Admin: 07/15/23 07:44 Dose: 100 mls Ondansetron HCl (Ondansetron 4 Mg/2 Ml Vial) 4 mg IV Q6HP PRN PRN Reason: NAUSEA / VOMITING Sodium Chloride (Flush Normal Saline 10 Ml) 10 ml IV BID [facility] Last Admin: 07/15/23 07:44 Dose: 10 ml Sotalol HCl (Sotalol Hcl 80 Mg Tab) 80 mg PO BID 6AM 6PM [facility] Last Admin: 07/15/23 05:52 Dose: 80 mg Assessment and Plan Problem List Acute Cystitis Pneumonia Acute on Chronic CHF Cerebral palsy Muscle contractures Atrial Fibrillation Mild PCM Acute Cystitis - Renal ultrasound unremarkable - Urine culture 07/12: Escherichia coli ESBL -On Meropenem 07/13 - Blood cultures 07/12: No growth to date - No leukocytosis. Afebrile. Pneumonia - XR chest 07/13: "Moderate bilateral pulmonary opacities, greater on the right probably represents asymmetric pulmonary edema or infection/ pneumonia. The heart is mildly enlarged. No displaced fractures." - On Meropenem 07/13- Recommendations Continue current plan of care - ESBL UTI: Continue Meropenem/ertapenem x 7 days (07/13-07/20) - Supportive care and nutritional supplementation as needed - Pressure offloading measures Case discussed with Dr. Saldaña NCaroline
--- NOTE | 2023-07-15 18:56 | P.PN ---
Subjective Date of Service: 07/15/23 Chief Complaint: Hypoxia Patient unable to voice subjective complaint No issues overnight. No reported agitation. Physical Examination - Vital Signs Temperature: 97.7 F Blood Pressure: 153/79 Pulse: 98 Respirations: 16 Pulse Ox (%): 93 Assessment And Plan - Plan Physical Exam General: Alert, In no apparent distress, Nonverbal Respiratory: Clear to auscultation bilaterally, Normal air movement, Other (crackles bases) Cardiovascular: No edema, Normal pulses, Irregular heart rate/rhythm Gastrointestinal: Normal bowel sounds, Soft and benign Musculoskeletal: No clubbing, No swelling. Tenderness lateral aspect of left hip. Integumentary: No rashes, No breakdown Neurological: Normal tone, nonverbal. Assessment and plan Sepsis acute hypoxic respiratory failure secondary to pneumonia. Multilobular pneumonia likely secondary to aspiration. Acute cystitis with hematuria Cerebral palsy Assessment plan Sepsis Secondary to UTI and aspiration pneumonia IV antibiotics Urine culture is growing ESBL E. coli. Sepsis resolved. Outpatient IV Invanz. Patient to complete 7 days of treatment. Acute hypoxic respiratory failure secondary to pneumonia. IV meropenem. Speech therapy input appreciated. Mechanical soft, ground meat recommended. DuoNebs Supplemental oxygen as needed. Acute cystitis with hematuria History of ESBL E. coli UTI Continue IV meropenem Midline to be placed for outpatient IV antibiotics Cerebral palsy nonverbal Fall precautions speech therapy consult for swallow eval. Left hip pain Severe osteoarthritis and avascular necrosis suspected. Supportive measures. Pain management as needed. Patient will need hip replacement in the near future. DVT Lovenox Cardiac diet Full code
[2023-07-15 20:15] VITALS: O2SAT 93
[2023-07-15] MEDS: Mupirocin NASAL 2 APPL/1 GM TUBE NAS SCH (20:37)
[2023-07-16] MEDS: Meropenem 1,000 MG in NA CHLORIDE 0.9% 100 ML IV SCH ×2 (01:48→09:00)
[2023-07-16] MEDS: SOTALOL HCL 80 MG TAB PO SCH (05:43)
[2023-07-16 08:37] VITALS: BP 121/59; TEMP 98.2
[2023-07-16] MEDS ORDERED: ERTAPENEM NA 1 GM in NA CHLORIDE 0.9% 100 ML IVPB SCH (09:11)
[2023-07-16] MEDS: APIXABAN 5 MG TABLET PO SCH (09:36)
[2023-07-16] MEDS: Mupirocin NASAL 2 APPL/1 GM TUBE NAS SCH (09:36)
--- NOTE | 2023-07-16 10:55 | P.DS ---
Admission Date: 07/12/23 Discharge Date: 07/16/23 Reason for Admission: Hypoxia Brief History of Present Illness: 73-year-old female with a past medical history of cerebral palsy was transferred from senior care to the emergency department with complaint of chest pain. ER evaluation blood pressure 155/86, temperature 99.1, O2 sats 86% on room air, heart rate on arrival was 117, HPI limited due to Cerebral palsy, HPI per medical record, ER course patient was given aspirin 81 mg per EMS. Patient is not on home O2, patient meets SIRS criteria due to hypoxia, elevated heart rate, elevated temperature. Chest x-ray Moderate bilateral pulmonary opacities, greater on the right probably represents asymmetric pulmonary edema or infection/ pneumonia. Laboratory evaluation suggested UTI. Patient was admitted for further management. Hospital Course: Assessment and plan Sepsis acute hypoxic respiratory failure secondary to pneumonia. Multilobular pneumonia likely secondary to aspiration. Acute cystitis with hematuria Cerebral palsy Assessment plan Sepsis Secondary to UTI and aspiration pneumonia IV antibiotics Urine culture is growing ESBL E. coli. Sepsis resolved. Outpatient IV Invanz. Patient to complete 7 days of treatment. Acute hypoxic respiratory failure secondary to pneumonia. Patient treated with IV meropenem Seen and evaluated by speech therapy. Mechanical soft, ground meat recommended. Patient tolerated dysphagia diet. She initially needed supplemental oxygen which was weaned off. Patient tolerated room air. Acute cystitis with hematuria History of ESBL E. coli UTI Patient treated with IV meropenem PICC line placed for outpatient IV antibiotics Cerebral palsy nonverbal Fall precautions speech therapy saw patient for swallow evaluation. Left hip pain Severe osteoarthritis and avascular necrosis suspected on the hip x-ray Supportive measures. Pain management as needed. Patient will need hip replacement and need to follow-up with orthopedics as outpatient. Vital Signs/Physical Exam: Temp Pulse Resp BP Pulse Ox 98.2 F 84 16 121/59 L 93 07/16/23 08:00 07/16/23 08:00 07/16/23 08:00 07/16/23 08:00 07/16/23 08:00 General: Other (Awake, nonverbal) HEENT: Mucous membr. moist/pink Neck: JVD not distended Respiratory: Normal air movement, Crackles/rales (Mild bibasilar crackles) Cardiovascular: No edema, Regular rate/rhythm, Normal S1 S2 Gastrointestinal: Soft and benign, Non-distended, No tenderness Musculoskeletal: No swelling Neurological: Other (She moves all other extremities.) Laboratory Data at Discharge: WBC 11.50 thou/uL (4.3-10.9) H 07/15/23 03:15 Hgb 12.5 g/dL (12.0-15.0) D 07/15/23 03:15 Hct 38.6 % (36.0-45.0) 07/15/23 03:15 Plt Count 263 thou/uL (152-406) 07/15/23 03:15 PT Cancelled 07/12/23 22:26 INR Cancelled 07/12/23 22:26 APTT 31.9 SECONDS (24.3-36.9) 07/12/23 22:26 Sodium 139 mEq/L (136-145) 07/15/23 03:15 Potassium 4.2 mEq/L (3.5-5.1) 07/15/23 03:15 BUN 13 mg/dL (7-18) 07/15/23 03:15 Creatinine 0.67 mg/dL (0.55-1.02) 07/15/23 03:15 Glucose 100 mg/dL (74-106) 07/15/23 03:15 Magnesium 2.0 mg/dL (1.6-2.4) 07/15/23 03:15 Total Bilirubin 0.3 mg/dL (0.2-1.0) 07/12/23 19:10 AST 10 U/L (15-37) L 07/12/23 19:10 ALT < 10 U/L (13-56) L 07/12/23 19:10 Alkaline Phosphatase 69 U/L (45-117) 07/12/23 19:10 Home Medications: Acetaminophen [Tylenol] 2 tab PO Q6H PRN 01/05/22 Ascorbic Acid 1 tab PO DAILY 01/05/22 Aspirin 1 tab PO DAILY 01/05/22 Buspirone HCl [Buspar] 5 mg PO TID 01/05/22 Cholecalciferol (Vitamin D3) [Vitamin D3] 5,000 unit PO DAILY 01/05/22 Divalproex Sodium [Depakote Sprinkle] 2 cap PO BID 01/05/22 Docusate Sodium 1 tab PO DAILY 01/05/22 Lactulose 30 ml PO BEDTIME 01/05/22 Multivitamin 1 tab PO DAILY 01/05/22 Simvastatin 20 mg PO BEDTIME 01/05/22 Tramadol HCl [Ultram] 1 tab PO BID PRN 01/05/22 Loratadine [Claritin*] 10 mg PO DAILY 07/13/23 Menthol [Biofreeze] 1 appl TP PRN PRN 07/13/23 guaiFENesin [Shirley-Tussin] 10 ml PO Q6H PRN 07/13/23 Apixaban [Eliquis] 5 mg PO BID #0 07/15/23 Sotalol HCl [Betapace*] 80 mg PO BID 6AM 6PM tab 07/15/23 Followup: NONE,NONE [Primary Care Provider] - Time spent managing pt's care (in minutes): 33
--- NOTE | 2023-07-16 21:29 | RAD REPORT ---
EXAM DESCRIPTION: RAD - Chest Single View - 07/16/2023 12:59 am CLINICAL HISTORY: The patient is 73 years old and is Female; S/P PICC insertion TECHNIQUE: Frontal view of the chest. COMPARISON: No relevant prior studies available. FINDINGS: Lungs: Mildly prominent interstitial markings. No consolidation. Pleural space: Blunting of the left costophrenic angle which may indicate left pleural effusion. No pneumothorax. Heart: Unremarkable. Mediastinum: Unremarkable. Bones/joints: Chronic appearing changes involving the left shoulder. Tubes, lines and devices: Right PICC with tip in the SVC. IMPRESSION: 1. Mildly prominent interstitial markings. No consolidation. 2. Blunting of the left costophrenic angle which may indicate left pleural effusion. 3. Right PICC with tip in the SVC. Electronically signed by: Jun Luque MD 07/16/2023 1:18 AM CDT Due to temporary technical issues with the PACS/Fluency reporting system, reports are being signed by the in house radiologists without review as a courtesy to insure prompt reporting. The interpreting radiologist is fully responsible for the content of the report.
== END 2023-07-16 11:59 | DRG 871 ==
LOC: ER 15:38 → ERHOLD 18:56 → 2ND 20:01
PROVIDERS: ADMIT Internal Medicine; ATTEND Internal Medicine
PROC: 02HV33Z Insertion of Infusion Device into Superior Vena Cava, Percutaneous Approach (ICD-10-PCS; principal; 2023-07-16)
DX: A41.51 Sepsis due to Escherichia coli [E. coli] (principal); J18.9 Pneumonia, unspecified organism; J96.21 Acute and chronic respiratory failure with hypoxia; N30.01 Acute cystitis with hematuria; E44.1 Mild protein-calorie malnutrition; Z68.41 Body mass index [BMI] 40.0-44.9, adult; Z16.12 Extended spectrum beta lactamase (ESBL) resistance; M87.88 Other osteonecrosis, other site; R65.10 Systemic inflammatory response syndrome (SIRS) of non-infectious origin without acute organ dysfunction; I10 Essential (primary) hypertension; G80.8 Other cerebral palsy; G89.4 Chronic pain syndrome; H91.90 Unspecified hearing loss, unspecified ear; M16.12 Unilateral primary osteoarthritis, left hip; I48.91 Unspecified atrial fibrillation; Z88.0 Allergy status to penicillin; Z88.5 Allergy status to narcotic agent; Z79.01 Long term (current) use of anticoagulants; Z79.82 Long term (current) use of aspirin; Z79.899 Other long term (current) drug therapy; Z20.822 Contact with and (suspected) exposure to COVID-19
CPT/HCPCS: 36415; 36569; 71045; 76770; 80048; 80076; 81001; 83605; 83735; 83880; 84484; 85025; 85730; 87040; 87077; 87086; 87088; 87186; 87635; 92526; 92610; 93005; 93306; 94760; 96374; 96375; 99285; J0696; J1335; J1650; J2185

== ENCOUNTER 2024-05-09 20:33 | Emergency (ER) | payer OTHER ==
--- OUTSIDE RECORDS SUMMARY | 2024-05-09 20:37 | XMS REPORT | Continuity of Care Document ---
Author Name Unknown Address [address] [facility] [address] [place] [address] [facility] thconnect Address [address] [facility] [address] [place] [address] Care Team Providers Care Still Worker Helper Name Role Phone GC_BAHC_Herman_Mary Attending Clinician Unavailable Shannon Sutton Attending Clinician [phone] Mike Snider Attending Clinician [phone] GC_BAHC_Dennyglravi_G Attending Clinician Unavailab le GC_BAHC_Herman_J Admitting Clinician Unavailable GC_BAHC_Spangler_G Admitting Clinician Unavailab le Payers Payer Name Policy Type Policy Number Effective Date Expirati on Date Source MEDICARE [place]: momondo [id number] 1985 00:00:00 [facility] (MEDICAID HMO) [id number] 2016 00:00:00 Problems Condition Name Condition Details Condition Category Status Onset Date Resolution Date Last Treatment Date Treating Clinician Comments Source Constipati on Constipati on Problem Active 6-17 00:00: 00 [facility] Edema of left lower leg Edema of Left Lower Leg Problem Active 5-24 00:00: 00 [facility] Intertrigo Intertrigo Problem Active 4-21 00:00: 00 [facility] Secondary immune deficiency disorder Secondary Immune Deficiency Disorder Problem Active 12-18 00:00: 00 [facility] Spastic cerebral palsy Spastic Cerebral Palsy Problem Active 12-18 00:00: 00 [facility] Unintentio nal weight loss Unintentio nal Weight Loss Problem Active 12-18 00:00: 00 [facility] Edema of foot Edema of Foot Problem Active 1-08 00:00: 00 [facility] At increased risk for aspiration At Increased Risk for Aspiration Problem Active 2022-11 0-22 00:00: 00 [facility] Cyst of uterine adnexa Cyst of Uterine Adnexa Problem Active 2022-11 0-15 00:00: 00 [facility] Hypertensi ve heart disease Hypertensi ve Heart Disease Problem Active 2022-11 0-01 00:00: 00 [facility] Osteoarthr itis of multiple joints Osteoarthr itis of Multiple Joints Problem Active 2022-11 0-01 00:00: 00 [facility] Osteoarthr itis of left hip joint Osteoarthr itis of Left Hip Joint Problem Active 9-29 00:00: 00 [facility] Atrial fibrillati on Atrial Fibrillati on Problem Active 9-12 00:00: 00 [facility] Weight gain Weight Gain Problem Active 9- 00:00: 00 [facility] Unable to feed self Unable to Feed Self Problem Active 4-26 00:00: 00 [facility] Double incontinen ce Double Incontinen ce Problem Active 1-29 00:00: 00 [facility] Frailty Frailty Problem Active 9-26 00:00: 00 [facility] Total self-care deficit Total Self-care Deficit Problem Active 9-26 00:00: 00 [facility] Lives in fdc Lives in Custodial Problem Active 9-26 00:00: 00 [facility] Dry skin dermatitis Dry Skin Dermatitis Problem Active 7-07 00:00: 00 [facility] Unable to speak Unable to Speak Problem Active 0 5-22 00:00: 00 [facility] Needs help with feeding Needs Help with Feeding Problem Active 0 5-22 00:00: 00 [facility] Senile purpura Senile Purpura Problem Active 0 4-20 00:00: 00 [facility] Hypercoagu lability state Hypercoagu lability State Problem Active 0 4-20 00:00: 00 [facility] Mood disorder Mood Disorder Problem Active 0 4-20 00:00: 00 [facility] Peripheral vascular disease Peripheral Vascular Disease Problem Active 0 4-20 00:00: 00 [facility] Functional quadripleg ia Functional Quadripleg ia Problem Active 0 4-20 00:00: 00 [facility] Recurrent falls Recurrent Falls Problem Active 420 00:00: 00 [facility] Opioid dependence with current use Opioid Dependence with Current Use Problem Active 420 00:00: 00 [facility] Chronic pain syndrome Chronic Pain Syndrome Problem Active 4 00:00: 00 [facility] Cerebral palsy Cerebral Palsy Problem Active 4 00:00: 00 [facility] Vitamin D deficiency Vitamin D Deficiency Problem Active 03-02 00:00: 00 [facility] Hyperlipid emia Hyperlipid emia Problem Active 4 00:00: 00 [facility] Dysphagia Dysphagia Problem Active [facility] At high risk for fall At High Risk for Fall Problem Active [facility] Generalize d anxiety disorder Generalize d Anxiety Disorder Problem Active [facility] Allergies, Adverse Reactions, Alerts Allergy Name Allergy Type Status Severity Reaction(s) Onset Date Inactive Date Treating Clinician Comments Source Fentanyl Allergy to substanc e Active 2-15 00:00: 00 [facility] PENICILL INS Allergy to substanc e Active [facility] Social History Smoking Status Start Date Stop Date Source Never Smoker [facility] Medications Ordered Medication Name Filled Medication Name Start Date Stop Date Current Medication? Ordering Clinician Indication Dosage Frequency Signature (SIG) Comments Components Source acetaminoph en 325 mg capsule Take 2 capsules every 6 hours by oral route as needed. acetaminoph en 325 mg capsule Take 2 capsules every 6 hours by oral route as needed. No 2capsul e(s) Q6H acetaminop hen 325 mg capsule Take 2 capsules every 6 hours by oral route as needed. [facility] aspirin 81 mg tablet,azalea yed release Take 1 tablet every day by oral route. aspirin 81 mg tablet,azalea yed release Take 1 tablet every day by oral route. No 1 Q1D aspirin 81 mg tablet,del ayed release Take 1 tablet every day by oral route. [facility] buspirone 10 mg tablet Take 1 tablet every 8 hours by oral route. buspirone 10 mg tablet Take 1 tablet every 8 hours by oral route. No buspirone 10 mg tablet Take 1 tablet every 8 hours by oral route. [facility] cholecalcif nicola (vitamin D3) 125 mcg (5,000 unit) tablet Take 1 tablet every day by oral route. cholecalcif nicola (vitamin D3) 125 mcg (5,000 unit) tablet Take 1 tablet every day by oral route. No 1 Q1D cholecalci ferol (vitamin D3) 125 mcg (5,000 unit) tablet Take 1 tablet every day by oral route. [facility] divalproex 125 mg capsule,del ayed release sprinkle Take 2 capsules twice a day by oral route for 30 days. divalproex 125 mg capsule,del ayed release sprinkle Take 2 capsules twice a day by oral route for 30 days. No divalproex 125 mg capsule,de layed release sprinkle Take 2 capsules twice a day by oral route for 30 days. [facility] docusate sodium 100 mg tablet Take 1 tablet every day by oral route. docusate sodium 100 mg tablet Take 1 tablet every day by oral route. No 1 Q1D docusate sodium 100 mg tablet Take 1 tablet every day by oral route. [facility] Eliquis 5 mg tablet Take 1 tablet twice a day by oral route. Eliquis 5 mg tablet Take 1 tablet twice a day by oral route. No Eliquis 5 mg tablet Take 1 tablet twice a day by oral route. [facility] lactulose 10 gram/15 mL oral solution Take 30 mL every day by oral route at bedtime. lactulose 10 gram/15 mL oral solution Take 30 mL every day by oral route at bedtime. No lactulose 10 gram/15 mL oral solution Take 30 mL every day by oral route at bedtime. [facility] ondansetron HCl 4 mg tablet ondansetron HCl 4 mg tablet No ondansetro n HCl 4 mg tablet [facility] simvastatin 20 mg tablet Take 1 tablet every day by oral route at bedtime. simvastatin 20 mg tablet Take 1 tablet every day by oral route at bedtime. No simvastati n 20 mg tablet Take 1 tablet every day by oral route at bedtime. [facility] sotalol 80 mg tablet Take 1 tablet twice a day by oral route. sotalol 80 mg tablet Take 1 tablet twice a day by oral route. No sotalol 80 mg tablet Take 1 tablet twice a day by oral route. [facility] nystatin-tr iamcinolone 100,000 unit/g-0.1 % topical cream nystatin-tr iamcinolone 100,000 unit/g-0.1 % topical cream No nystatin-t riamcinolo ne 100,000 unit/g-0.1 % topical cream [facility] acetaminoph en 300 mg-codeine 60 mg tablet Take 1 tablet 3 times a day by oral route for 30 days, for osteoarthri tis of left hip. acetaminoph en 300 mg-codeine 60 mg tablet Take 1 tablet 3 times a day by oral route for 30 days, for osteoarthri tis of left hip. No 1 TID acetaminop hen 300 mg-codeine 60 mg tablet Take 1 tablet 3 times a day by oral route for 30 days, for osteoarthr itis of left hip. [facility] Immunizations Ordered Immunization Name Filled Immunization Name Date Status Comments Source influenza, unspecified formulation influenza, unspecified formulation Unknown Completed [facility] Tdap Tdap Unknown Completed [facility] ical influenza, injectable, quadrivalent influenza, injectable, quadrivalent Unknown Completed [facility] COVID-19 (SARS-COV-2) vaccine, unspecified COVID-19 (SARS-COV-2) vaccine, unspecified Unknown Completed [facility] zeke pneumococcal polysaccharide PPV23 pneumococcal polysaccharide PPV23 Unknown Completed [facility] pneumococcal conjugate PCV 13 pneumococcal conjugate PCV 13 Unknown Completed [facility] Vital Signs Vital Name Observation Time Observation Value Comments S ource BP Diastolic 2024-05-04 00:00:00 93 mm[Hg] [facility] Body Weight 2024-05-04 00:00:00 3008 [oz_av] [facility] BP Systolic 2024-05-04 00:00:00 142 mm[Hg] [facility] BMI (Body Mass Index) 2024-05-04 00:00:00 28.6 kg[facility]2 [facility] Height 2024-05-04 00:00:00 68 [in_i] [facility] Height 2024-04-25 00:00:00 68 [in_i] [facility] BP Diastolic 2024-04-25 00:00:00 60.99 mm[Hg] [facility] BP Systolic 2024-04-25 00:00:00 132 mm[Hg] [facility] BMI (Body Mass Index) 2024-04-25 00:00:00 28.6 kg/m2 [facility] Body Weight 2024-04-25 00:00:00 3008 [oz_av] [facility] BP Systolic 2024-04-12 00:00:00 154 mm[Hg] [facility] Height 2024-04-12 00:00:00 68 [in_i] [facility] BMI (Body Mass Index) 2024-04-12 00:00:00 28.4 kg/m2 [facility] Body Weight 2024-04-12 00:00:00 2992 [oz_av] [facility] BP Diastolic 2024-04-12 00:00:00 93 mm[Hg] [facility] Body Weight 2024-03-26 00:00:00 2992 [oz_av] [facility] BMI (Body Mass Index) 2024-03-26 00:00:00 28.4 kg/m2 [facility] BP Diastolic 2024-03-26 00:00:00 76 mm[Hg] [facility] Height 2024-03-26 00:00:00 68 [in_i] [facility] BP Systolic 2024-03-26 00:00:00 134 mm[Hg] [facility] BP Systolic 2024-03-02 00:00:00 138 mm[Hg] [facility] BP Diastolic 2024-03-02 00:00:00 89 mm[Hg] [facility] Body Weight 2024-03-02 00:00:00 2982 [oz_av] [facility] BMI (Body Mass Index) 2024-03-02 00:00:00 28.3 kg/m2 [facility] Height 2024-03-02 00:00:00 68 [in_i] [facility] Height 2024-02-16 00:00:00 68 [in_i] [facility] BP Systolic 2024-02-16 00:00:00 127 mm[Hg] [facility] BP Diastolic 2024-02-16 00:00:00 51 mm[Hg] [facility] Body Weight 2024-02-16 00:00:00 2962 [oz_av] [facility] BMI (Body Mass Index) 2024-02-16 00:00:00 28.1 kg/m2 [facility] Height 2024-02-08 00:00:00 68 [in_i] [facility] BP Systolic 2024-02-08 00:00:00 125 mm[Hg] [facility] BP Diastolic 2024-02-08 00:00:00 80 mm[Hg] [facility] Body Weight 2024-02-08 00:00:00 2962 [oz_av] [facility] BMI (Body Mass Index) 2024-02-08 00:00:00 28.1 kg/m2 [facility] BMI (Body Mass Index) 2024-01-06 00:00:00 28.5 kg/m2 [facility] Body Weight 2024-01-06 00:00:00 2998 [oz_av] [facility] Height 2024-01-06 00:00:00 68 [in_i] [facility] BP Systolic 2024-01-06 00:00:00 129 mm[Hg] [facility] BP Diastolic 2024-01-06 00:00:00 65 mm[Hg] [facility] BP Diastolic 2023-03-15 00:00:00 74 mm[Hg] [facility] Height 2023-03-15 00:00:00 68 [in_i] [facility] BMI (Body Mass Index) 2023-03-15 00:00:00 26.7 kg/m2 [facility] BP Systolic 2023-03-15 00:00:00 118 mm[Hg] [facility] Body Weight 2023-03-15 00:00:00 2808 [oz_av] [facility] BP Diastolic 2023-02-18 00:00:00 68 mm[Hg] [facility] Height 2023-02-18 00:00:00 68 [in_i] [facility] BMI (Body Mass Index) 2023-02-18 00:00:00 26.2 kg/m2 [facility] BP Systolic 2023-02-18 00:00:00 124 mm[Hg] [facility] Body Weight 2023-02-18 00:00:00 2754 [oz_av] [facility] BP Diastolic 2023-01-21 00:00:00 66 mm[Hg] [facility] Height 2023-01-21 00:00:00 68 [in_i] [facility] BMI (Body Mass Index) 2023-01-21 00:00:00 26.5 kg/m2 [facility] BP Systolic 2023-01-21 00:00:00 119 mm[Hg] [facility] Body Weight 2023-01-21 00:00:00 2786 [oz_av] [facility] BP Diastolic 2022-12-21 00:00:00 84 mm[Hg] [facility] Height 2022-12-21 00:00:00 68 [in_i] [facility] BMI (Body Mass Index) 2022-12-21 00:00:00 26.7 kg/m2 [facility] BP Systolic 2022-12-21 00:00:00 139 mm[Hg] [facility] Body Weight 2022-12-21 00:00:00 2809 [oz_av] [facility] BP Diastolic 2022-12-07 00:00:00 70 mm[Hg] [facility] Height 2022-12-07 00:00:00 68 [in_i] [facility] BMI (Body Mass Index) 2022-12-07 00:00:00 26.7 kg/m2 [facility] BP Systolic 2022-12-07 00:00:00 135 mm[Hg] [facility] Body Weight 2022-12-07 00:00:00 2809 [oz_av] [facility] BP Diastolic 2022-11-09 00:00:00 74 mm[Hg] [facility] Height 2022-11-09 00:00:00 68 [in_i] [facility] BMI (Body Mass Index) 2022-11-09 00:00:00 26.7 kg/m2 [facility] BP Systolic 2022-11-09 00:00:00 125 mm[Hg] [facility] Body Weight 2022-11-09 00:00:00 2808 [oz_av] [facility] BP Diastolic 2022-09-28 00:00:00 70 mm[Hg] [facility] Height 2022-09-28 00:00:00 68 [in_i] [facility] BMI (Body Mass Index) 2022-09-28 00:00:00 27.1 kg/m2 [facility] BP Systolic 2022-09-28 00:00:00 128 mm[Hg] [facility] Body Weight 2022-09-28 00:00:00 2852 [oz_av] [facility] BP Diastolic 2022-09-03 00:00:00 72 mm[Hg] [facility] Height 2022-09-03 00:00:00 68 [in_i] [facility] BMI (Body Mass Index) 2022-09-03 00:00:00 26 kg/m2 [facility] BP Systolic 2022-09-03 00:00:00 129 mm[Hg] [facility] Body Weight 2022-09-03 00:00:00 2738 [oz_av] [facility] BP Diastolic 2022-08-17 00:00:00 76 mm[Hg] [facility] Height 2022-08-17 00:00:00 68 [in_i] [facility] BMI (Body Mass Index) 2022-08-17 00:00:00 26 kg/m2 [facility] BP Systolic 2022-08-17 00:00:00 118 mm[Hg] [facility] Body Weight 2022-08-17 00:00:00 2738 [oz_av] [facility] BP Diastolic 2022-08-09 00:00:00 74 mm[Hg] [facility] Height 2022-08-09 00:00:00 68 [in_i] [facility] BMI (Body Mass Index) 2022-08-09 00:00:00 26 kg/m2 [facility] BP Systolic 2022-08-09 00:00:00 136 mm[Hg] [facility] Body Weight 2022-08-09 00:00:00 2738 [oz_av] [facility] BP Diastolic 2022-07-13 00:00:00 68 mm[Hg] [facility] Height 2022-07-13 00:00:00 68 [in_i] [facility] BMI (Body Mass Index) 2022-07-13 00:00:00 26.5 kg/m2 [facility] BP Systolic 2022-07-13 00:00:00 124 mm[Hg] [facility] Body Weight 2022-07-13 00:00:00 2789 [oz_av] [facility] BP Diastolic 2022-06-17 00:00:00 74 mm[Hg] [facility] Height 2022-06-17 00:00:00 68 [in_i] [facility] BMI (Body Mass Index) 2022-06-17 00:00:00 36.2 kg/m2 [facility] BP Systolic 2022-06-17 00:00:00 126 mm[Hg] [facility] Body Weight 2022-06-17 00:00:00 3811 [oz_av] [facility] BP Diastolic 2022-06-04 00:00:00 65 mm[Hg] [facility] Height 2022-06-04 00:00:00 68 [in_i] [facility] BMI (Body Mass Index) 2022-06-04 00:00:00 36.2 kg/m2 [facility] BP Systolic 2022-06-04 00:00:00 120 mm[Hg] [facility] Body Weight 2022-06-04 00:00:00 3811 [oz_av] [facility] BP Diastolic 2022-06-01 00:00:00 77 mm[Hg] [facility] Height 2022-06-01 00:00:00 68 [in_i] [facility] BMI (Body Mass Index) 2022-06-01 00:00:00 36.3 kg/m2 [facility] BP Systolic 2022-06-01 00:00:00 132 mm[Hg] [facility] Body Weight 2022-06-01 00:00:00 3816 [oz_av] [facility] BP Diastolic 2022-05-19 00:00:00 77 mm[Hg] [facility] Height 2022-05-19 00:00:00 68 [in_i] [facility] BMI (Body Mass Index) 2022-05-19 00:00:00 36.3 kg/m2 [facility] BP Systolic 2022-05-19 00:00:00 126 mm[Hg] [facility] Body Weight 2022-05-19 00:00:00 3816 [oz_av] [facility] BP Diastolic 2022-05-07 00:00:00 73 mm[Hg] [facility] Height 2022-05-07 00:00:00 68 [in_i] [facility] BMI (Body Mass Index) 2022-05-07 00:00:00 36.2 kg/m2 [facility] BP Systolic 2022-05-07 00:00:00 130 mm[Hg] [facility] Body Weight 2022-05-07 00:00:00 3811 [oz_av] [facility] BP Diastolic 2022-04-22 00:00:00 90 mm[Hg] [facility] Height 2022-04-22 00:00:00 68 [in_i] [facility] BMI (Body Mass Index) 2022-04-22 00:00:00 36.5 kg/m2 [facility] BP Systolic 2022-04-22 00:00:00 121 mm[Hg] [facility] Body Weight 2022-04-22 00:00:00 3836.8 [oz_av] [facility] BP Diastolic 2022-04-02 00:00:00 68 mm[Hg] [facility] Height 2022-04-02 00:00:00 68 [in_i] [facility] BMI (Body Mass Index) 2022-04-02 00:00:00 36.4 kg/m2 [facility] BP Systolic 2022-04-02 00:00:00 129 mm[Hg] [facility] Body Weight 2022-04-02 00:00:00 3832 [oz_av] [facility] BP Diastolic 2022-03-19 00:00:00 75 mm[Hg] [facility] Height 2022-03-19 00:00:00 68 [in_i] [facility] BMI (Body Mass Index) 2022-03-19 00:00:00 36.5 kg/m2 [facility] BP Systolic 2022-03-19 00:00:00 133 mm[Hg] [facility] Body Weight 2022-03-19 00:00:00 3840 [oz_av] [facility] BP Diastolic 2022-03-16 00:00:00 62 mm[Hg] [facility] Height 2022-03-16 00:00:00 68 [in_i] [facility] BMI (Body Mass Index) 2022-03-16 00:00:00 36.4 kg/m2 [facility] BP Systolic 2022-03-16 00:00:00 132 mm[Hg] [facility] Body Weight 2022-03-16 00:00:00 3826 [oz_av] [facility] BP Diastolic 2022-03-04 00:00:00 78 mm[Hg] [facility] Height 2022-03-04 00:00:00 68 [in_i] [facility] BMI (Body Mass Index) 2022-03-04 00:00:00 36.4 kg/m2 [facility] BP Systolic 2022-03-04 00:00:00 150 mm[Hg] [facility] Body Weight 2022-03-04 00:00:00 3827 [oz_av] [facility] Height 2022-03-02 00:00:00 68 [in_i] [facility] BMI (Body Mass Index) 2022-03-02 00:00:00 36.4 kg/m2 [facility] Body Weight 2022-03-02 00:00:00 3827.2 [oz_av] [facility] Encounters Start Date/Time End Date/Time Encounter Type Admission Type Attending [facility] Facility Care Department Encounter ID Source 2024-05-04 00:00:00 2024-05-04 00:00:00 Shannon Sutton PA: [address] [place] [id number] , Ph. [facility] [id number] [facility] 2024-04-25 00:00:00 2024-04-25 00:00:00 ALEENA Mares: [address] [place] [phone] , Ph. [facility] [id number] [facility] 2024-04-12 00:00:00 2024-04-12 00:00:00 Mike Snider MD: [address] [place] [phone] , Ph. [facility] [id number] [facility] 2024-03-30 00:00:00 2024-03-30 00:00:00 ALEENA Mares: [address] [place] [phone] , Ph. [facility] [id number] [facility] 2024-03-26 00:00:00 2024-03-26 00:00:00 ALEENA Mares: [address] [place] [phone] , Ph. [facility] - [facility] [id number] [facility] 2024-03-02 00:00:00 2024-03-02 00:00:00 ALEENA Mares: [address] [place] [phone] , Ph. [facility] - [facility] [id number] [facility] 2024-02-16 00:00:00 2024-02-16 00:00:00 Mike Snider MD: [address] [place] [phone] , Ph. [facility] - [facility] [id number] [facility] 2024-02-08 00:00:00 2024-02-08 00:00:00 ALEENA Mares: [address] [place] [phone] , Ph. [facility] - [facility] [id number] [facility] 2024-02-01 00:00:00 2024-02-01 00:00:00 Outpatient GC_BAHC_Tod d_J [facility] [id number] [facility] 2024-01-06 00:00:00 2024-01-06 00:00:00 ALEENA Mares: [address] [place] [phone] , Ph. [facility] [id number] [facility] 2023-12-26 00:00:00 2023-12-26 00:00:00 Outpatient GC_BAHC_Tod d_J [facility] [id number] [facility] 2023-12-15 00:00:00 2023-12-15 00:00:00 Outpatient GC_BAHC_Tod d_J PRIV PRIV [id number] [facility] 2023-12-15 00:00:00 2023-12-15 00:00:00 Mike Snider MD: [address] [place] [phone] , Ph. [facility] - [facility] [id number] [facility] 2023-12-13 00:00:00 2023-12-13 00:00:00 Outpatient GC_BAHC_Tod d_J PRIV PRIV [id number] [facility] 2023-12-06 00:00:00 2023-12-06 00:00:00 ALEENA Mares: [address] [place] [phone] , Ph. [facility] - [facility] [id number] [facility] 2023-11-02 00:00:00 2023-11-02 00:00:00 Outpatient GC_BAHC_Tod d_J PRIV PRIV [id number] [facility] 2023-09-27 00:00:00 2023-09-27 00:00:00 Outpatient GC_BAHC_Tod d_J PRIV PRIV [id number] [facility] 2023-09-27 00:00:00 2023-09-27 00:00:00 Outpatient GC_BAHC_Tod d_J PRIV PRIV [id number] [facility] 2023-09-21 00:00:00 2023-09-21 00:00:00 Outpatient GC_BAHC_Tod d_J PRIV PRIV [id number] [facility] 2023-08-05 00:00:00 2023-08-05 00:00:00 Outpatient GC_BAHC_Tod d_J PRIV PRIV [id number] [facility] 2023-08-05 00:00:00 2023-08-05 00:00:00 Outpatient GC_BAHC_Tod d_J PRIV PRIV [id number] [facility] 2023-08-05 00:00:00 2023-08-05 00:00:00 Outpatient GC_BAHC_Tod d_J PRIV PRIV [id number] [facility] 2023-08-05 00:00:00 2023-08-05 00:00:00 Outpatient GC_BAHC_Tod d_J PRIV PRIV [id number] [facility] 2023-08-05 00:00:00 2023-08-05 00:00:00 Outpatient GC_BAHC_Tod d_J PRIV PRIV [id number] [facility] 2023-08-05 00:00:00 2023-08-05 00:00:00 Outpatient GC_BAHC_Tod d_J PRIV PRIV [id number] [facility] 2023-08-05 00:00:00 2023-08-05 00:00:00 Outpatient GC_BAHC_Tod d_J PRIV PRIV [id number] [facility] 2023-08-05 00:00:00 2023-08-05 00:00:00 Outpatient GC_BAHC_Tod d_J PRIV PRIV [id number] [facility] 2023-08-05 00:00:00 2023-08-05 00:00:00 Outpatient GC_BAHC_Tod d_J PRIV PRIV [id number] [facility] 2023-08-05 00:00:00 2023-08-05 00:00:00 Outpatient GC_BAHC_Tod d_J PRIV PRIV [id number] [facility] 2023-08-05 00:00:00 2023-08-05 00:00:00 Outpatient GC_BAHC_Tod d_J PRIV PRIV [id number] [facility] 2023-07-20 00:00:00 2023-07-20 00:00:00 Outpatient GC_BAHC_Tod d_J PRIV PRIV [id number] [facility] 2023-07-20 00:00:00 2023-07-20 00:00:00 Outpatient GC_BAHC_Tod d_J PRIV PRIV [id number] [facility] 2023-07-20 00:00:00 2023-07-20 00:00:00 Outpatient GC_BAHC_Tod d_J PRIV PRIV [id number] [facility] 2023-07-20 00:00:00 2023-07-20 00:00:00 Outpatient GC_BAHC_Tod d_J PRIV PRIV [id number] [facility] 2023-07-06 00:00:00 2023-07-06 00:00:00 Outpatient GC_BAHC_Tod d_J PRIV PRIV [id number] [facility] 2023-07-06 00:00:00 2023-07-06 00:00:00 Outpatient GC_BAHC_Tod d_J PRIV PRIV [id number] [facility] 2023-05-31 00:00:00 2023-05-31 00:00:00 Outpatient GC_BAHC_Tod d_J PRIV PRIV [id number] [facility] 2023-05-31 00:00:00 2023-05-31 00:00:00 Outpatient GC_BAHC_Tod d_J PRIV PRIV [id number] [facility] 2023-05-31 00:00:00 2023-05-31 00:00:00 Outpatient GC_BAHC_Tod d_J PRIV PRIV [id number] [facility] 2023-05-31 00:00:00 2023-05-31 00:00:00 Outpatient GC_BAHC_Tod d_J PRIV PRIV [id number] [facility] [facility] 2023-03-21 00:00:00 2023-03-21 00:00:00 Outpatient GC_BAHC_Tod d_J PRIV PRIV [id number] [facility] 2023-03-21 00:00:00 2023-03-21 00:00:00 Outpatient GC_BAHC_Tod d_J PRIV PRIV [id number] [facility] 2023-03-21 00:00:00 2023-03-21 00:00:00 Outpatient GC_BAHC_Tod d_J PRIV PRIV [id number] [facility] 2023-03-21 00:00:00 2023-03-21 00:00:00 Outpatient GC_BAHC_Tod d_J PRIV PRIV [id number] [facility] 2023-03-21 00:00:00 2023-03-21 00:00:00 Outpatient GC_BAHC_Tod d_J PRIV PRIV [id number] [facility] 2023-03-21 00:00:00 2023-03-21 00:00:00 Outpatient GC_BAHC_Tod d_J PRIV PRIV [id number] [facility] 2023-03-21 00:00:00 2023-03-21 00:00:00 Outpatient GC_BAHC_Tod d_J PRIV PRIV [id number] [facility] 2023-03-15 00:00:00 2023-03-15 00:00:00 ALEENA Mares: [address] [place] [phone] , Ph. [facility] - [facility] [id number] [facility] 2023-02-25 00:00:00 2023-02-25 00:00:00 Outpatient GC_BAHC_Tod d_J PRIV PRIV [id number] [facility] 2023-02-25 00:00:00 2023-02-25 00:00:00 Outpatient GC_BAHC_Tod d_J PRIV PRIV [id number] [facility] 2023-02-18 00:00:00 2023-02-18 00:00:00 ALEENA Mares: [address] [place] [id number] , Ph. [facility] - [facility] [id number] [facility] 2023-01-27 00:00:00 2023-01-27 00:00:00 Outpatient GC_BAHC_Tod d_J PRIV PRIV [id number] [facility] 2023-01-27 00:00:00 2023-01-27 00:00:00 Outpatient GC_BAHC_Tod d_J PRIV PRIV [id number] [facility] 2023-01-27 00:00:00 2023-01-27 00:00:00 Outpatient GC_BAHC_Tod d_J PRIV PRIV [id number] [facility] 2023-01-21 00:00:00 2023-01-21 00:00:00 ALEENA Mares: [address] [place] [phone] , Ph. [facility] - [facility] [id number] [facility] 2022-12-27 00:00:00 2022-12-27 00:00:00 Outpatient GC_BAHC_Tod d_J PRIV PRIV [id number] [facility] 2022-12-23 00:00:00 2022-12-23 00:00:00 Outpatient GC_BAHC_Tod d_J PRIV PRIV [id number] [facility] 2022-12-21 00:00:00 2022-12-21 00:00:00 Mike Snider MD: [address] [place] [phone] , Ph. [facility] - [facility] [id number] [facility] 2022-12-07 00:00:00 2022-12-07 00:00:00 ALEENA Mares: [address] [place] [phone] , Ph. [facility] [id number] [facility] 2022-11-09 00:00:00 2022-11-09 00:00:00 ALEENA Mares: [address] [place] [phone] , Ph. [facility] [id number] [facility] 2022-09-28 00:00:00 2022-09-28 00:00:00 ALEENA Mares: [address] [place] [phone] , Ph. [facility] [id number] [facility] 2022-09-20 00:00:00 2022-09-20 00:00:00 Outpatient GC_BAHC_Tod d_J PRIV PRIV [id number] [facility] 2022-09-20 00:00:00 2022-09-20 00:00:00 Outpatient GC_BAHC_Tod d_J PRIV PRIV [id number] [facility] 2022-09-20 00:00:00 2022-09-20 00:00:00 Outpatient GC_BAHC_Tod d_J PRIV PRIV [id number] [facility] 2022-09-20 00:00:00 2022-09-20 00:00:00 Outpatient GC_BAHC_Tod d_J PRIV PRIV [id number] [facility] 2022-09-20 00:00:00 2022-09-20 00:00:00 Outpatient GC_BAHC_Tod d_J PRIV PRIV [id number] [facility] 2022-09-20 00:00:00 2022-09-20 00:00:00 Outpatient GC_BAHC_Tod d_J PRIV PRIV [id number] [facility] 2022-09-14 00:00:00 2022-09-14 00:00:00 Outpatient GC_BAHC_Tod d_J PRIV PRIV [id number] [facility] 2022-09-03 00:00:00 2022-09-03 00:00:00 ALEENA Mares: [address] [place] [phone] , Ph. [facility] - [facility] [id number] [facility] 2022-08-17 00:00:00 2022-08-17 00:00:00 ALEENA Mares: [address] [place] [phone] , Ph. [facility] - [facility] [id number] [facility] 2022-08-09 00:00:00 2022-08-09 00:00:00 Mike Snider MD: [address] [place] [phone] , Ph. [facility] - [facility] [id number] [facility] 2022-08-04 00:00:00 2022-08-04 00:00:00 Outpatient GC_BAHC_Tod d_J [facility] [id number] [facility] 2022-07-22 00:00:00 2022-07-22 00:00:00 Outpatient GC_BAHC_Tod d_J [facility] [id number] [facility] 2022-07-13 00:00:00 2022-07-13 00:00:00 Outpatient Shannon Sutton [facility] [id number] [id number] 2022-07-13 00:00:00 2022-07-13 00:00:00 ALEENA Mares: [address] [place] [id number] , Ph. [facility] [id number] [facility] 2022-06-22 00:00:00 2022-06-22 00:00:00 Outpatient GC_BAHC_Tod d_J PRIV PRIV [id number] [facility] 2022-06-21 00:00:00 2022-06-21 00:00:00 Outpatient GC_BAHC_Tod d_J PRIV PRIV [id number] [facility] 2022-06-17 00:00:00 2022-06-17 00:00:00 Outpatient GC_BAHC_Tod d_J PRIV PRIV [id number] [facility] 2022-06-17 00:00:00 2022-06-17 00:00:00 Mike Snider MD: [address] [place] [phone] , Ph. [facility] [id number] [facility] 2022-06-17 00:00:00 2022-06-17 00:00:00 Outpatient Mike Snider [facility] [id number] 2022-06-14 02:27:00 2022-06-14 02:27:00 Outpatient GC_BAHC_Tod d_J [facility] PRIV [id number] [facility] 2022-06-04 04:09:00 2022-06-04 04:09:00 Outpatient GC_BAHC_Tod d_J [facility] PRIV [id number] [facility] 2022-06-04 00:00:00 2022-06-04 00:00:00 ALEENA Mares: [address] [place] [id number] , Ph. [facility] [id number] [facility] 2022-06-04 00:00:00 2022-06-04 00:00:00 Outpatient Shannon Sutton [facility] [id number] 2022-06-02 02:16:00 2022-06-02 02:16:00 Outpatient GC_BAHC_Tod d_J PRIV PRIV [id number] [facility] 2022-06-01 01:13:00 2022-06-01 01:13:00 Outpatient GC_BAHC_Tod d_J PRIV PRIV [id number] [facility] 2022-06-01 00:00:00 2022-06-01 00:00:00 ALEENA Mares: [address] [place] [id number] , Ph. [facility] - [facility] [id number] [facility] 2022-06-01 00:00:00 2022-06-01 00:00:00 Outpatient Shannon Sutton [facility] [id number] 2022-05-28 11:29:00 2022-05-28 11:29:00 Outpatient GC_BAHC_Tod d_J PRIV PRIV [id number] [facility] 2022-05-27 11:48:00 2022-05-27 11:48:00 Outpatient GC_BAHC_Tod d_J PRIV PRIV [id number] [facility] 2022-05-19 09:16:00 2022-05-19 09:16:00 Outpatient GC_BAHC_Tod d_J PRIV PRIV [id number] [facility] 2022-05-19 00:00:00 2022-05-19 00:00:00 ALEENA Mares: [address] [place] [phone] , Ph. [facility] - [facility] [id number] [facility] 2022-05-19 00:00:00 2022-05-19 00:00:00 Outpatient Shannon Sutton [facility] [id number] 2022-05-16 10:45:00 2022-05-16 10:45:00 Outpatient GC_BAHC_Tod d_J [facility] [id number] [facility] 2022-05-07 06:48:00 2022-05-07 06:48:00 Outpatient GC_BAHC_Tod d_J PRIV PRIV [id number] [facility] 2022-05-07 00:00:00 2022-05-07 00:00:00 ALEENA Mares: [address] [place] [id number] , Ph. [facility] [id number] [facility] 2022-05-07 00:00:00 2022-05-07 00:00:00 Outpatient Shannon Sutton [facility] [id number] 2022-04-24 10:41:00 2022-04-24 10:41:00 Outpatient GC_BAHC_Tod d_J [facility] [id number] [facility] 2022-04-22 02:04:00 2022-04-22 02:04:00 Outpatient GC_BAHC_Tod d_J [facility] [id number] [facility] 2022-04-22 00:00:00 2022-04-22 00:00:00 Outpatient Mike Snider [facility] [id number] 00:00:00 2022-04-22 00:00:00 Mike Snider MD: [address] [place] [id number] , Ph. [facility] - [facility] [id number] [facility] 2022-04-11 10:45:00 2022-04-11 10:45:00 Outpatient GC_BAHC_Tod d_J [facility] [id number] [facility] 2022-04-02 01:08:00 2022-04-02 01:08:00 Outpatient GC_BAHC_Tod d_J PRIV PRIV [id number] [facility] 2022-04-02 00:00:00 2022-04-02 00:00:00 Outpatient Shannon Sutton [facility] [id number] 2022-04-02 00:00:00 2022-04-02 00:00:00 ALEENA Mares: [address] [place] [phone] , Ph. [facility] - [facility] [id number] [facility] 2022-03-28 10:46:00 2022-03-28 10:46:00 Outpatient GC_BAHC_Tod d_J PRIV PRIV [id number] [facility] 2022-03-23 01:40:00 2022-03-23 01:40:00 Outpatient GC_BAHC_Tod d_J PRIV PRIV [id number] [facility] 2022-03-19 08:35:00 2022-03-19 08:35:00 Outpatient GC_BAHC_Tod d_J PRIV PRIV [id number] [facility] 2022-03-19 00:00:00 2022-03-19 00:00:00 Outpatient Shannon Sutton [facility] [id number] 00:00:00 2022-03-19 00:00:00 Shannon Sutton PA: [address] [place] [id number] , Ph. [facility] - [facility] [id number] [facility] 2022-03-16 01:18:00 2022-03-16 01:18:00 Outpatient GC_BAHC_Tod d_J [facility] PRIV [id number] [facility] 2022-03-16 00:00:00 2022-03-16 00:00:00 Outpatient Shannon Sutton [facility] PRIV [id number] 2022-03-16 00:00:00 2022-03-16 00:00:00 ALEENA Mares: [address] [place] [id number] , Ph. [facility] - [facility] [id number] [facility] 2022-03-11 01:01:00 2022-03-11 01:01:00 Outpatient GC_BAHC_Tod d_J PRIV PRIV [id number] [facility] 2022-03-10 03:19:00 2022-03-10 03:19:00 Outpatient GC_BAHC_Tod d_J PRIV PRIV [id number] [facility] 2022-03-09 05:30:00 2022-03-09 05:30:00 Outpatient GC_BAHC_Tod d_J PRIV PRIV [id number] [facility] 2022-03-04 11:25:00 2022-03-04 11:25:00 Outpatient GC_BAHC_Tod d_J PRIV PRIV [id number] [facility] 2022-03-04 00:00:00 2022-03-04 00:00:00 Outpatient Mike Snider [facility] [id number] 2022-03-04 00:00:00 2022-03-04 00:00:00 Mike Snider MD: [address] [place] [phone] , Ph. [facility] - [facility] [id number] [facility] 2022-03-04 00:00:00 2022-03-04 00:00:00 Outpatient Mike Snider [facility] PRIV [id number] 2022-03-03 04:03:00 2022-03-03 04:03:00 Outpatient GC_BAHC_Tod d_J [facility] [id number] [facility] 2022-03-02 12:59:00 2022-03-02 12:59:00 Outpatient GC_BAHC_Tod d_J [facility] [id number] [facility] 2022-03-02 00:00:00 2022-03-02 00:00:00 Outpatient Shannon Sutton [facility] [id number] 2022-03-02 00:00:00 2022-03-02 00:00:00 ALEENA Mares: [address] [place] [id number] , Ph. [facility] - [facility] [id number] [facility] 2022-03-02 00:00:00 2022-03-02 00:00:00 Outpatient Shannon Sutton [facility] [id number] 2022-03-01 11:07:00 2022-03-01 11:07:00 Outpatient GC_BAHC_Spa ngler_G [facility] [id number] [facility]
[2024-05-09] MEDS ORDERED: ONDANSETRON 4 MG/2 ML VIAL ONE (20:43)
[2024-05-09] MEDS ORDERED: MORPHINE 4 MG/ML SYR ONE (20:43)
[2024-05-09] MEDS ORDERED: ZIPRASIDONE MESYLA 20 MG/VIAL IM ONE (20:43)
--- NOTE | 2024-05-09 22:27 | RAD REPORT ---
EXAM DESCRIPTION: RAD - Humerus Left - 05/09/2024 9:31 pm CLINICAL HISTORY: shoulder pain! COMPARISON: No comparisons TECHNIQUE: Left Humerus, 3 views. FINDINGS: No fracture is identified. Deformity of the proximal humerus suggesting a remote fracture. There is no dislocation or periosteal reaction noted. Elevation of the elbow fat pad suggesting an e ffusion No foreign body or other soft tissue abnormality. IMPRESSION: Elevation of the elbow fat suggesting an occult fracture. Deformity of the proximal humerus, likely a healed fracture
--- NOTE | 2024-05-09 22:48 | RAD REPORT ---
EXAM DESCRIPTION: CT - Head C Spine Cap Wo Con - 05/09/2024 9:38 pm CLINICAL HISTORY: fall in [facility], left humerus fx, assess for additiona COMPARISON: Humerus Left dated 05/09/2024 TECHNIQUE: Head and cervical spine CT images were obtained without IV contrast. Chest, abdomen, and pelvis CT images were obtained without IV contrast. Multiplanar reformats were generated and reviewed . All CT scans are performed using dose optimization technique as appropriate and may include automated exposure control or mA/KV adjustment according to patient size. FINDINGS: CT HEAD: No intracranial hemorrhage, mass effect, or edema. No evidence of acute territorial infarct. No midli ne shift or abnormal fluid collection. The ventricles are normal in caliber and configuration for age . Basal cisterns are patent. Mastoid aircells and paranasal sinuses are clear. No acute skull fractur e. CT CERVICAL SPINE: No acute cervical spine fracture. Appearance of basilar invagination, with chronic appearing left pos terior C1 arch fracture, compression deformities at the C1 left more than right lateral masses. Other multilevel degenerative changes with disc height loss, partial ankylosis across C2-3 and C5-6 levels , and variable degrees of neural, up to moderate on the right at C3-4 and C4-5. Vertebral body height s are well maintained. No hyperattenuating canal hematoma. Prevertebral and paraspinous soft tissues are unremarkable. CT CHEST: No pneumothorax, or pulmonary contusion. Trace layering right pleural effusion. No mediastinal hemato ma and the aorta and pulmonary arteries are unremarkable. No chest will mass or abnormal axillary fin ding. No displaced rib fracture or other significant bony finding. CT ABDOMEN/ PELVIS: No evidence of traumatic injury to solid abdominal viscera. Gallbladder and biliary tree are unremark able. No bowel injury or significant finding. Dominant right adnexal cyst 7.5 cm. No free air, free f luid or abnormal fat stranding. No urinary bladder abnormality. No acute bony finding. Deformity of the left shoulder, with a compression deformity of the posterior aspect of the humeral head. Advanced degenerative changes with lateral subluxation of the left femor al head. Partially visualized lipoma of the left upper thigh. IMPRESSION: No acute traumatic findings. Trace right pleural effusion. Chronic findings including appearance of left posterior C1 arch fracture, compression deformity of th e left C1 lateral mass, and basilar invagination.
--- NOTE | 2024-05-10 00:49 | EDPHYS ---
Physician Documentation [facility] Name: Kely Harper Age: 73 yrs Sex: Female : 1950 Arrival Date: 05/09/2024 Time: 20:33 Bed 6 Private MD: ED Physician Mark Quintero HPI: 05/09 20:35 This 73 yrs old Female presents to ER via Unassigned with complaints of left sp4 shoulder pain.. 05/11 00:13 . sp4 00:17 Patient is elderly demented female presents with acute left shoulder discomfort after sp4 reported fall at unknown time at the long term. . Historical: - Allergies: 05/09 21:05 Fentanyl; rg5 21:05 PENICILLINS; rg5 - Home Meds: 21:05 Depakote 125 mg Oral TbEC 1 tab 2 times per day [Active]; acetaminophen 325 mg Oral cap rg5 q 6 hr PRN for Pain [Active]; buspirone 10 mg Oral tab 1 tab 3 times per day [Active]; ascorbic acid (vitamin C) 500 mg cap daily [Active]; simvastatin 20 mg Oral tab 1 tab once daily [Active]; docusate sodium 100 mg Oral cap 1 cap once daily [Active]; lactulose 10 gram/15 mL (15 mL) Oral soln 30 mL once daily [Active]; multivitamin Oral cap [Active]; - PMHx: 21:05 Cerebral Palsy; Anxiety; rg5 - Immunization history:: Adult Immunizations unknown, . - Infectious Disease History:: Denies. - Social history:: Smoking status: unknown. - Family history:: not pertinent. ROS: 05/11 00:18 Constitutional: Patient is non verbal. ROS not available sp4 All other systems are negative, Unable to obtain ROS due to baseline dementia, Exam: 00:18 Constitutional: Frail elderly patient who is poorly cooperative secondary to dementia, sp4 emotionally upset in appearance, guarding left shoulder. There is left upper arm contusion with hematoma. Otherwise no obvious deformity. Signs of prolonged immobility with diffuse muscular atrophy. Contracture secondary to immobility. Head/Face: Normocephalic, atraumatic. Eyes: Pupils equal round and reactive to light, extra-ocular motions intact. Lids and lashes normal. Conjunctiva and sclera are not injected. Cornea within normal limits. Periorbital areas with no swelling, redness, or edema. ENT: Nares patent. No nasal discharge, no septal abnormalities noted. Tympanic membranes are normal and external auditory canals are clear. Oropharynx with no redness, Neck: Trachea midline, no thyromegaly or masses palpated, and no cervical lymphadenopathy. Supple, full range of motion without nuchal rigidity, or vertebral point tenderness. Chest/axilla: Normal chest wall appearance and motion. Nontender with no deformity. No lesions are appreciated. Cardiovascular: Regular rate and rhythm with a normal S1 and S2. No gallops, murmurs, or rubs. Normal PMI, no JVD. No pulse deficits. Respiratory: Lungs have equal breath sounds bilaterally, clear to auscultation and percussion. No rales, rhonchi or wheezes noted. No increased work of breathing, no retractions or nasal flaring. Abdomen/GI: Soft, with normal bowel sounds. No distension or tympany. No guarding or rebound. No evidence of tenderness throughout. Back: No spinal tenderness. No costovertebral tenderness. Skin: Warm, dry with normal turgor. Normal color with no rashes, no lesions, and no evidence of cellulitis. MS/ Extremity: Pulses equal, no cyanosis. Neurovascular intact. Contracture secondary to immobility, guarding of the left shoulder, decreased ROM left shoulder, Neuro: Awake and alert, signs of moderate to severe dementia, nonverbal patient, noncooperative patient, no report of acute neurologic deficits. Vital Signs: 05/09 20:56 BP 104 / 72; Pulse 76; Resp 18; Temp 98; Pulse Ox 98% ; Weight 89.81 kg; Height 5 ft. 6 rg5 in. ; Pain 7/10; 21:05 BP 123 / 90; Pulse 90; Resp 18; Temp 98; Pulse Ox 98% ; Pain 7/10; rg5 23:11 BP 135 / 68; Pulse 90; Resp 18; Temp 97.8; Pulse Ox 94% ; Pain 0/10; [facility] 05/10 01:16 BP 113 / 51; Pulse 88; Resp 18; Temp 97.9; Pulse Ox 94% ; Pain 0/10; [facility] 05/09 20:56 Body Mass Index 31.96 (89.81 kg, 167.64 cm) [facility] 05/09 20:56 Pain Scale: Adult rg5 21:05 Pain Scale: Adult rg5 23:11 Pain Scale: Adult rg5 05/10 01:16 Pain Scale: Adult rg5 Wilda Coma Score: 05/11 00:18 Eye Response: spontaneous(4). Motor Response: localizes pain(5). Verbal Response: sp4 incomprehensible(2). Total: 11. MDM: 05/09 20:38 Patient medically screened. sp4 22:35 ED course: EXAM DESCRIPTION: RAD - Humerus Left - 05/09/2024 9:31 pm CLINICAL HISTORY: sp4 shoulder pain! COMPARISON: No comparisons TECHNIQUE: Left Humerus, 3 views. FINDINGS: No fracture is identified. Deformity of the proximal humerus suggesting a remote fracture. There is no dislocation or periosteal reaction noted. Elevation of the elbow fat pad suggesting an effusion No foreign body or other soft tissue abnormality. IMPRESSION: Elevation of the elbow fat suggesting an occult fracture. Deformity of the proximal humerus, likely a healed fracture. 05/10 00:47 ED course: CT - No acute bony finding. Deformity of the left shoulder, with a sp4 compression deformity of the posterior aspect of the humeral head. Advanced degenerative changes with lateral subluxation of the left femoral head. Partially visualized lipoma of the left upper thigh. IMPRESSION: No acute traumatic findings. Trace right pleural effusion. Chronic findings including appearance of left posterior C1 arch fracture, compression deformity of the left C1 lateral mass, and basilar invagination. . 05/11 00:18 Differential Diagnosis altered mental status, sepsis, flu, Acute injury left shoulder . sp4 Data reviewed: vital signs, nurses notes, EMS record, old medical records, radiologic studies, CT scan, plain films. Consideration of Admission/Observation Escalation of care including admission/observation considered. ED course: Left elbow exam is normal left elbow movement is normal. Shoulder x-ray reveals apparent chronic deformity. CT reveals compression deformity over the humeral head. Likely chronic. Will place patient in a sling and immobilizer. Mother recommend follow-up with orthopedist. Otherwise as reported no acute traumatic findings, trace right pleural effusion, left posterior C1 arch fracture with chronic appearance, compression deformity of the left total left C1 mass.. 05/09 20:38 Order name: Humerus Left XRAY; Complete Time: 00:16 sp4 05/09 21:21 Order name: CT Traumagram (Head C Spine CAP wo con); Complete Time: 00:16 sp4 05/09 20:37 Order name: Saline Lock; Complete Time: 20:55 sp4 Administered Medications: 05/09 20:55 Drug: Ondansetron IVP 4 mg IVP once; over 2 minutes Route: IVP; Site: right hand; rg5 22:34 Follow up: Response: No adverse reaction rg5 20:56 Drug: Geodon IM 20 mg IM once Route: IM; Site: left gluteus; rg5 22:35 Follow up: Response: No adverse reaction rg5 20:56 Drug: morphine IVP or IV 4 mg IVP once over 4 mins Route: IVP; Infused Over: 4 mins; rg5 Site: right hand; 22:34 Follow up: Response: No adverse reaction rg5 Disposition Summary: 05/10/24 00:49 Discharge Ordered Notes: We recommend visit with Orthopedist in 2 to 3 days Location: Home sp4 Problem: new sp4 Symptoms: have improved sp4 Condition: Stable sp4 Diagnosis - Contusion of left shoulder sp4 - Advanced physical debility, immobility complications, moderate to severe dementia, sp4 left shoulder contusion with left shoulder hematoma. Chronic left shoulder deformity Followup: sp4 - With: Kt Cruz MD - When: 2 - 3 days - Reason: Recheck today's complaints Discharge Instructions: - Discharge Summary Sheet sp4 - Contusion, [id number] sp4 Forms: - Patient Portal Instructions sp4 - SBAR form [facility] Signatures: Dispatcher [employer] EDMark Em MD MD sp4 Aly Arenas RN RN rg5 Corrections: (The following items were deleted from the chart) 21:22 21:21 Head C Spine Cap Wo Con+CT.RAD.BRZ ordered. EDMS EDMS 21:31 20:38 Shoulder Left 2 View+RAD.RAD.BRZ ordered. EDMS EDMS
--- NOTE | 2024-05-10 00:49 | ER ---
Nurse's Notes [facility] Name: Kely Harper Age: 73 yrs Sex: Female : 1950 Arrival Date: 05/09/2024 Time: 20:33 Bed 6 Private MD: Diagnosis: Contusion of left shoulder;Advanced physical debility, immobility complications, moderate to severe dementia, left shoulder contusion with left shoulder hematoma. Chronic left shoulder deformity Presentation: 05/09 20:56 Chief complaint: EMS states: left shoulder pain. Coronavirus screen: Client denies rg5 travel out of the [place] in the last 14 days. Ebola Screen: Patient denies exposure to infectious person. Patient denies travel to an Ebola-affected area in the 21 days before illness onset. Initial Sepsis Screen: Does the patient meet any 2 criteria? No. Patient's initial sepsis screen is negative. Does the patient have a suspected source of infection? No. Patient's initial sepsis screen is negative. Risk Assessment: Do you want to hurt yourself or someone else? Unable to obtain. Onset of symptoms was May 09, 2024. 20:56 Method Of Arrival: EMS: [facility] rg5 20:56 Acuity: NO 3 rg5 Triage Assessment: 21:05 General: Appears uncomfortable, Behavior is calm. Pain: Complains of pain in left rg5 shoulder Quality of pain is described as aching. EENT: Neuro: Speech with expressive aphasia noted, Cardiovascular: Heart tones S1 S2 Capillary refill < 3 seconds. Respiratory: Airway is patent. GI: Abdomen is round obese, Abd is soft and non tender Reports. : Reports incontinence. Historical: - Allergies: 21:05 Fentanyl; rg5 21:05 PENICILLINS; rg5 - Home Meds: 21:05 Depakote 125 mg Oral TbEC 1 tab 2 times per day [Active]; acetaminophen 325 mg Oral cap rg5 q 6 hr PRN for Pain [Active]; buspirone 10 mg Oral tab 1 tab 3 times per day [Active]; ascorbic acid (vitamin C) 500 mg cap daily [Active]; simvastatin 20 mg Oral tab 1 tab once daily [Active]; docusate sodium 100 mg Oral cap 1 cap once daily [Active]; lactulose 10 gram/15 mL (15 mL) Oral soln 30 mL once daily [Active]; multivitamin Oral cap [Active]; - PMHx: 21:05 Cerebral Palsy; Anxiety; rg5 - Immunization history:: Adult Immunizations unknown, . - Infectious Disease History:: Denies. - Social history:: Smoking status: unknown. - Family history:: not pertinent. Screenin:26 [facility] ED Fall Risk Assessment (Adult) History of falling in the last 3 months, rg5 including since admission No falls in past 3 months (0 pts) Confusion or Disorientation Yes (5 pts) Intoxicated or Sedated No (0 pts) Impaired Gait Yes (1 pt) Mobility Assist Device Used Yes (1 pt) Altered Elimination Yes (1 pt) Score/Fall Risk Level 3 or more points = High Risk Maintained a safe environment, Assessed \T\ reinforced patient's understanding of fall precautions, Hourly rounding (assess needs \T\ fall precautionary measures) done, Offered frequent toileting (1:1 observation). Abuse screen: Denies threats or abuse. Nutritional screening: No deficits noted. Tuberculosis screening: No symptoms or risk factors identified. Assessment: 21:31 Reassessment: Patient and/or family updated on plan of care and expected duration. Pain rg5 level reassessed. Patient is alert, oriented x 3, equal unlabored respirations, skin warm/dry/pink. Pain: Complains of pain in left shoulder Pain currently is 7 out of 10 on a pain scale. Quality of pain is described as aching. 05/10 01:08 Reassessment: called and spoke with SOURAV Waters from from pt's home facility. Report bm8 given. Evelin stated that she would call [facility] ambulance and arrange transportation for pt to return. Vital Signs: 05/09 20:56 BP 104 / 72; Pulse 76; Resp 18; Temp 98; Pulse Ox 98% ; Weight 89.81 kg; Height 5 ft. 6 rg5 in. ; Pain 7/10; 21:05 BP 123 / 90; Pulse 90; Resp 18; Temp 98; Pulse Ox 98% ; Pain 7/10; rg5 23:11 BP 135 / 68; Pulse 90; Resp 18; Temp 97.8; Pulse Ox 94% ; Pain 0/10; rg5 05/10 01:16 BP 113 / 51; Pulse 88; Resp 18; Temp 97.9; Pulse Ox 94% ; Pain 0/10; rg5 06/19 20:56 Body Mass Index 31.96 (89.81 kg, 167.64 cm) rg5 05/09 20:56 Pain Scale: Adult rg5 21:05 Pain Scale: Adult rg5 23:11 Pain Scale: Adult rg5 05/10 01:16 Pain Scale: Adult rg5 Vitals: 05/09 23:11 Cardiac Rhythm Assessment Regular Sinus rhythm. rg5 Wilda Coma Score: 05/11 00:18 Eye Response: spontaneous(4). Motor Response: localizes pain(5). Verbal Response: sp4 incomprehensible(2). Total: 11. ED Course: 05/09 20:34 Patient arrived in ED. lg3 20:34 Mark Quintero MD is Attending Physician. sp4 20:40 Aly Arenas, SOURAV is Primary Nurse. rg5 21:05 Triage completed. rg5 21:05 Arm band placed on right wrist. rg5 21:26 Fall risk band placed. Placed in gown. Bed in low position. Side rails up X2. rg5 21:26 Inserted saline lock: 20 gauge in right wrist, using aseptic technique. rg5 21:33 Humerus Left XRAY In Process Unspecified. EDMS 21:39 CT Traumagram (Head C Spine CAP wo con) In Process Unspecified. EDMS 23:16 Client placed on continuous cardiac and pulse oximetry monitoring. NIBP monitoring rg5 applied. site monitor on. Pulse ox on. NIBP on. Warm blanket given. Head of bed lowered. 05/10 00:48 Kt Cruz MD is Referral Physician. sp4 01:11 we inform the [facility] for her discharge and arrangement of rg5 transport. Administered Medications: 05/09 20:55 Drug: Ondansetron IVP 4 mg IVP once; over 2 minutes Route: IVP; Site: right hand; rg5 22:34 Follow up: Response: No adverse reaction rg5 20:56 Drug: Geodon IM 20 mg IM once Route: IM; Site: left gluteus; rg5 22:35 Follow up: Response: No adverse reaction rg5 20:56 Drug: morphine IVP or IV 4 mg IVP once over 4 mins Route: IVP; Infused Over: 4 mins; rg5 Site: right hand; 22:34 Follow up: Response: No adverse reaction rg5 Medication: 21:26 VIS not applicable for this client. rg5 Outcome: 05/10 00:49 Discharge ordered by MD. hoffman 02:06 Patient left the ED. jb4 Signatures: Dispatcher [employer] EDShaan Thompson, RN RN jb4 Lynn Vallejo RN RN lg3 Mark Quintero MD MD sp4 Ronak Jones RN RN bm8 Aly Arenas RN RN rg5
[2024-05-10 02:35] VITALS: BP 113/51; TEMP 97.9; O2SAT 94
== END 2024-05-10 02:06 | disposition home or self-care (01) ==
LOC: ER 20:33
DX: S40.012A Contusion of left shoulder, initial encounter (principal); M21.212 Flexion deformity, left shoulder; F03.90 Unspecified dementia, unspecified severity, without behavioral disturbance, psychotic disturbance, mood disturbance, and anxiety; W18.30XA Fall on same level, unspecified, initial encounter; Y92.129 Unspecified place in nursing home as the place of occurrence of the external cause
CPT/HCPCS: 70450; 71250; 72125; 73060; 96375; 96372; 96374; 99285; J3486; J2405

== ENCOUNTER 2025-01-12 18:25 | Emergency (ER) | payer OTHER ==
--- OUTSIDE RECORDS SUMMARY | 2025-01-12 18:30 | XMS REPORT | Continuity of Care Document ---
Author Name Unknown Address [address] [facility] [address] th[address] Address [address] [facility] [address] [place] [address] Care Team Providers Care Director Epidemiology Name Role Phone GC_BAHC_Herman_Mary Attending Clinician Unavailable Shannon Sutton Attending Clinician [phone] Mike Snider Attending Clinician [phone] GC_BAHC_Agatha_Ezekiel Attending Clinician Unavailab le GC_BAHC_Herman_Mary Admitting Clinician Unavailable GC_BAHC_Agatha_G Admitting Clinician Unavailab le Payers Payer Name Policy Type Policy Number Effective Date Expirati on Date Source MEDICARE [place]: [email or web address] [id number] 1985 00:00:00 [facility] (MEDICAID HMO) [id number] 2016 00:00:00 Problems Condition Name Condition Details Condition Category Status Onset Date Resolution Date Last Treatment Date Treating Clinician Comments Source Dislocatio n of shoulder joint Dislocatio n of Shoulder Joint Problem Active 2- 00:00: 00 [facility] Dental caries Dental Caries Problem Active 2023-11- 00:00: 00 [facility] Palliative care Palliative Care Problem Active 2023-11- 00:00: 00 [facility] Edema of left lower leg Edema of Left Lower Leg Problem Active - 00:00: 00 [facility] Secondary immune deficiency disorder Secondary Immune Deficiency Disorder Problem Active - 00:00: 00 [facility] Spastic cerebral palsy Spastic Cerebral Palsy Problem Active 12-18 00:00: 00 [facility] At increased risk for aspiration At Increased Risk for Aspiration Problem Active 2022-11 0- 00:00: 00 [facility] Cyst of uterine adnexa Cyst of Uterine Adnexa Problem Active 2022-11 0-15 00:00: 00 [facility] Hypertensi ve heart disease Hypertensi ve Heart Disease Problem Active 2022-11 0-01 00:00: 00 [facility] Osteoarthr itis of left hip joint Osteoarthr itis of Left Hip Joint Problem Active 9- 00:00: 00 [facility] Atrial fibrillati on Atrial Fibrillati on Problem Active 9- 00:00: 00 [facility] Double incontinen ce Double Incontinen ce Problem Active 1- 00:00: 00 [facility] Frailty Frailty Problem Active 08-16 00:00: 00 [facility] Total self-care deficit Total Self-care Deficit Problem Active 08-16 00:00: 00 [facility] Lives in halfway Lives in Skilled Nursing Problem Active 08-16 00:00: 00 [facility] Unable to speak Unable to Speak Problem Active 5 00:00: 00 [facility] Needs help with feeding Needs Help with Feeding Problem Active 5- 00:00: 00 [facility] Senile purpura Senile Purpura Problem Active 4-20 00:00: 00 [facility] Hypercoagu lability state Hypercoagu lability State Problem Active 4-20 00:00: 00 [facility] Peripheral vascular disease Peripheral Vascular Disease Problem Active 4-20 00:00: 00 [facility] Functional quadripleg ia Functional Quadripleg ia Problem Active 4-20 00:00: 00 [facility] Opioid dependence with current use Opioid Dependence with Current Use Problem Active 4-20 00:00: 00 [facility] Chronic pain syndrome Chronic Pain Syndrome Problem Active 4-12 00:00: 00 [facility] Vitamin D deficiency Vitamin D Deficiency Problem Active 4-12 00:00: 00 [facility] Hyperlipid emia Hyperlipid emia Problem Active 4-12 00:00: 00 [facility] Dysphagia Dysphagia Problem Active [facility] At high risk for fall At High Risk for Fall Problem Active [facility] Generalize d anxiety disorder Generalize d Anxiety Disorder Problem Active [facility] Allergies, Adverse Reactions, Alerts Allergy Name Allergy Type Status Severity Reaction(s) Onset Date Inactive Date Treating Clinician Comments Source Fentanyl Allergy to substanc e Active 2-15 00:00: 00 [facility] PENICILL INS Allergy to substanc e Active [facility] Social History Smoking Status Start Date Stop Date Source Never Smoker [facility] Medications Ordered Medication Name Filled Medication [...] every day by oral route. [facility] divalproex 125 mg capsule,del ayed release sprinkle Take 2 capsules twice a day by oral route for 30 days. divalproex 125 mg capsule,del ayed release sprinkle Take 2 capsules twice a day by oral route for 30 days. No divalproex 125 mg capsule,de layed release sprinkle Take 2 capsules twice a day by oral route for 30 days. [facility] docusate sodium 100 mg tablet Take 1 tablet every day by oral route. docusate sodium 100 mg tablet Take 1 tablet every day by oral route. No 1 Q1D docusate sodium 100 mg tablet Take 1 tablet every day by oral route. [facility] Eliquis 5 mg tablet Take 1 tablet twice a day by oral route. Eliquis 5 mg tablet Take 1 tablet twice a day by oral route. No Eliquis 5 mg tablet Take 1 tablet twice a day by oral route. [facility] lactulose 10 gram/15 mL oral solution Take 30 mL every day by oral route at bedtime. lactulose 10 gram/15 mL oral solution Take 30 mL every day by oral route at bedtime. No lactulose 10 gram/15 mL oral solution Take 30 mL every day by oral route at bedtime. [facility] simvastatin 20 mg tablet Take 1 tablet every day by oral route at bedtime. simvastatin 20 mg tablet Take 1 tablet every day by oral route at bedtime. No simvastati n 20 mg tablet Take 1 tablet every day by oral route at bedtime. [facility] Sotalol AF 80 mg tablet Take 1 tablet twice a day by oral route. Sotalol AF 80 mg tablet Take 1 tablet twice a day by oral route. No Sotalol AF 80 mg tablet Take 1 tablet twice a day by oral route. [facility] acetaminoph en 300 mg-codeine 60 mg tablet [...] days, for osteoarthr itis of left hip. [facility] clonidine HCl 0.1 mg tablet clonidine HCl 0.1 mg tablet No clonidine HCl 0.1 mg tablet [facility] hydrochloro thiazide 25 mg tablet Take 1 tablet every day by oral route for 30 days. hydrochloro thiazide 25 mg tablet Take 1 tablet every day by oral route for 30 days. No 1 Q1D hydrochlor othiazide 25 mg tablet Take 1 tablet every day by oral route for 30 days. [facility] Immunizations Ordered Immunization Name Filled Immunization Name Date Status Comments Source influenza, unspecified formulation influenza, unspecified formulation Unknown Completed [facility] Tdap Tdap Unknown Completed [facility] ical influenza, injectable, quadrivalent influenza, injectable, quadrivalent Unknown Completed [facility] COVID-19 (SARS-COV-2) vaccine, unspecified COVID-19 (SARS-COV-2) vaccine, unspecified Unknown Completed [facility] zeke pneumococcal polysaccharide PPV23 pneumococcal polysaccharide PPV23 Unknown Completed [facility] zeke pneumococcal conjugate PCV 13 pneumococcal conjugate PCV 13 Unknown Completed [facility] Pneumococcal conjugate PCV20, polysaccharide CPN082 conjugate, adjuvant, PF Pneumococcal conjugate PCV20, polysaccharide [id number] conjugate, adjuvant, PF Unknown Completed [facility] Vital Signs Vital Name Observation Time Observation Value Comments S ource BP Systolic 2024-12-24 00:00:00 127 mm[Hg] [facility] BMI (Body Mass Index) 2024-12-24 00:00:00 29.8 kg/m2 [facility] Height 2024-12-24 00:00:00 68 [in_i] [facility] BP Diastolic 2024-12-24 00:00:00 85 mm[Hg] [facility] Body Weight 2024-12-24 00:00:00 3141 [oz_av] [facility] BP Diastolic 2024-12-20 00:00:00 73 mm[Hg] [facility] Height 2024-12-20 00:00:00 68 [in_i] [facility] BP Systolic 2024-12-20 00:00:00 129 mm[Hg] [facility] BMI (Body Mass Index) 2024-12-20 00:00:00 29.8 kg/m2 [facility] Body Weight 2024-12-20 00:00:00 3141 [oz_av] [facility] BP Diastolic 2024-12-10 00:00:00 79 mm[Hg] [facility] BP Systolic 2024-12-10 00:00:00 129 mm[Hg] [facility] BMI (Body Mass Index) 2024-12-10 00:00:00 29.8 kg/m2 [facility] Height 2024-12-10 00:00:00 68 [in_i] [facility] Body Weight 2024-12-10 00:00:00 3141 [oz_av] [facility] Body Weight 2024-11-09 00:00:00 3144 [oz_av] [facility] BP Systolic 2024-11-09 00:00:00 146 mm[Hg] [facility] Height 2024-11-09 00:00:00 68 [in_i] [facility] BP Diastolic 2024-11-09 00:00:00 89 mm[Hg] [facility] BMI (Body Mass Index) 2024-11-09 00:00:00 29.9 kg/m2 [facility] Body Weight 2024-11-02 00:00:00 3144 [oz_av] [facility] BP Diastolic 2024-11-02 00:00:00 78 mm[Hg] [facility] BMI (Body Mass Index) 2024-11-02 00:00:00 29.9 kg/m2 [facility] Height 2024-11-02 00:00:00 68 [in_i] [facility] BP Systolic 2024-11-02 00:00:00 132 mm[Hg] [facility] BP Diastolic 2024-10-24 00:00:00 90 mm[Hg] [facility] Height 2024-10-24 00:00:00 68 [in_i] [facility] BMI (Body Mass Index) 2024-10-24 00:00:00 29.9 kg/m2 [facility] BP Systolic 2024-10-24 00:00:00 122 mm[Hg] [facility] Body Weight 2024-10-24 00:00:00 3144 [oz_av] [facility] Height 2024-10-08 00:00:00 68 [in_i] [facility] BP Systolic 2024-10-08 00:00:00 136 mm[Hg] [facility] BMI (Body Mass Index) 2024-10-08 00:00:00 29.1 kg/m2 [facility] Body Weight 2024-10-08 00:00:00 3060 [oz_av] [facility] BP Diastolic 2024-10-08 00:00:00 74 mm[Hg] [facility] Height 2024-10-01 00:00:00 68 [in_i] [facility] BMI (Body Mass Index) 2024-10-01 00:00:00 29.1 kg/m2 [facility] Body Weight 2024-10-01 00:00:00 3060 [oz_av] [facility] BP Diastolic 2024-10-01 00:00:00 77 mm[Hg] [facility] BP Systolic 2024-10-01 00:00:00 146 mm[Hg] [facility] BP Systolic 2024-08-29 00:00:00 127 mm[Hg] [facility] BP Diastolic 2024-08-29 00:00:00 81 mm[Hg] [facility] Body Weight 2024-08-29 00:00:00 3080 [oz_av] [facility] BMI (Body Mass Index) 2024-08-29 00:00:00 29.3 kg/m2 [facility] Height 2024-08-29 00:00:00 68 [in_i] [facility] Body Weight 2024-08-23 00:00:00 3126 [oz_av] [facility] BP Diastolic 2024-08-23 00:00:00 95 mm[Hg] [facility] BMI (Body Mass Index) 2024-08-23 00:00:00 29.7 kg/m2 [facility] Height 2024-08-23 00:00:00 68 [in_i] [facility] BP Systolic 2024-08-23 00:00:00 142 mm[Hg] [facility] BMI (Body Mass Index) 2024-08-08 00:00:00 29.7 kg/m2 [facility] Height 2024-08-08 00:00:00 68 [in_i] [facility] BP Diastolic 2024-08-08 00:00:00 85 mm[Hg] [facility] Body Weight 2024-08-08 00:00:00 3126 [oz_av] [facility] BP Systolic 2024-08-08 00:00:00 132 mm[Hg] [facility] BP Diastolic 2024-07-20 00:00:00 85 mm[Hg] [facility] BMI (Body Mass Index) 2024-07-20 00:00:00 29.2 kg/m2 [facility] BP Systolic 2024-07-20 00:00:00 125 mm[Hg] [facility] Body Weight 2024-07-20 00:00:00 3073 [oz_av] [facility] Height 2024-07-20 00:00:00 68 [in_i] [facility] BMI (Body Mass Index) 2024-07-13 00:00:00 29.2 kg/m2 [facility] Height 2024-07-13 00:00:00 68 [in_i] [facility] Body Weight 2024-07-13 00:00:00 3073 [oz_av] [facility] BP Diastolic 2024-07-13 00:00:00 79 mm[Hg] [facility] BP Systolic 2024-07-13 00:00:00 137 mm[Hg] [facility] BP Systolic 2024-07-04 00:00:00 131 mm[Hg] [facility] Body Weight 2024-07-04 00:00:00 3074 [oz_av] [facility] Height 2024-07-04 00:00:00 68 [in_i] [facility] BP Diastolic 2024-07-04 00:00:00 67 mm[Hg] [facility] BMI (Body Mass Index) 2024-07-04 00:00:00 29.2 kg/m2 [facility] BP Systolic 2024-06-13 00:00:00 113 mm[Hg] [facility] Height 2024-06-13 00:00:00 68 [in_i] [facility] BP Diastolic 2024-06-13 00:00:00 64 mm[Hg] [facility] BMI (Body Mass Index) 2024-06-13 00:00:00 28.7 kg/m2 [facility] Body Weight 2024-06-13 00:00:00 3024 [oz_av] [facility] BP Systolic 2024-06-07 00:00:00 151 mm[Hg] [facility] Body Weight 2024-06-07 00:00:00 3024 [oz_av] [facility] BP Diastolic 2024-06-07 00:00:00 91 mm[Hg] [facility] Height 2024-06-07 00:00:00 68 [in_i] [facility] BMI (Body Mass Index) 2024-06-07 00:00:00 28.7 kg/m2 [facility] Body Weight 2024-05-30 00:00:00 3008 [oz_av] [facility] BP Systolic 2024-05-30 00:00:00 125 mm[Hg] [facility] BMI (Body Mass Index) 2024-05-30 00:00:00 28.6 kg/m2 [facility] Height 2024-05-30 00:00:00 68 [in_i] [facility] BP Diastolic 2024-05-30 00:00:00 70 mm[Hg] [facility] Body Weight 2024-05-11 00:00:00 3008 [oz_av] [facility] BMI (Body Mass Index) 2024-05-11 00:00:00 28.6 kg/m2 [facility] Height 2024-05-11 00:00:00 68 [in_i] [facility] BP Systolic 2024-05-11 00:00:00 125 mm[Hg] [facility] BP Diastolic 2024-05-11 00:00:00 79 mm[Hg] [facility] BP Diastolic 2024-05-04 00:00:00 93 mm[Hg] [facility] Body Weight 2024-05-04 00:00:00 3008 [oz_av] [facility] BP Systolic 2024-05-04 00:00:00 142 mm[Hg] [facility] BMI (Body Mass Index) 2024-05-04 00:00:00 28.6 kg/m2 [facility] Height 2024-05-04 00:00:00 68 [in_i] [facility] [...] (Body Mass Index) 2022-03-02 00:00:00 36.4 kg/m2 [facility] Body Weight 2022-03-02 00:00:00 3827.2 [oz_av] [facility] Encounters Start Date/Time End Date/Time Encounter Type Admission Type Attending [facility] Facility Care Department Encounter ID Source 2024-12-24 00:00:00 2024-12-24 00:00:00 ALEENA Mares: [address] [place] [id number] , Ph. [facility] - GC_BAHC_Lak [facility] [id number] [facility] 2024-12-20 00:00:00 2024-12-20 00:00:00 Mike Snider MD: [address] [place] [phone] , Ph. [facility] - GC_BAHC_[facility] [id number] [facility] 2024-12-10 00:00:00 2024-12-10 00:00:00 Shannon Sutton PA: [address] [place] [phone] , Ph. [facility] GC_BAHC_Lak [facility] [id number] [facility] 2024-11-09 00:00:00 2024-11-09 00:00:00 ALEENA Mares: [address] [place] [phone] , Ph. [facility] - GC_BAHC_[facility] [id number] [facility] 2024-11-02 00:00:00 2024-11-02 00:00:00 ALEENA Mares: [address] [place] [phone] , Ph. [facility] - GC_BAHC_[facility] [id number] [facility] 2024-10-24 00:00:00 2024-10-24 00:00:00 Mike Snider MD: [address] [place] [phone] , Ph. [facility] - GC_BAHC_Lak [facility] [id number] [facility] 2024-10-08 00:00:00 2024-10-08 00:00:00 Shannon Sutton PA: [address] [place] [phone] , Ph. [facility] - GC_BAHC_[facility] [id number] [facility] 2024-10-01 00:00:00 2024-10-01 00:00:00 Shannon Sutton PA: [address] [place] [phone] , Ph. [facility] - GC_BAHC_[facility] [id number] [facility] 2024-08-29 00:00:00 2024-08-29 00:00:00 Shannon Sutton PA: [address] [place] [phone] , Ph. [facility] - GC_BAHC_[facility] [id number] [facility] 2024-08-23 00:00:00 2024-08-23 00:00:00 Mike Snider MD: [address] [place] [phone] , Ph. [facility] - GC_BAHC_[facility] [id number] [facility] 2024-08-08 00:00:00 2024-08-08 00:00:00 Shannon Sutton PA: [address] [place] [phone] , Ph. [facility] - GC_[facility]HC_[facility] [id number] [facility] 2024-07-20 00:00:00 2024-07-20 00:00:00 ALEENA Mares: [address] [place] [phone] , Ph. [facility] - GC_BAHC_[facility] [id number] [facility] 2024-07-13 00:00:00 2024-07-13 00:00:00 Shannon Sutton PA: [address] [place] [phone] , Ph. [facility] - GC_BAHC_[facility] [id number] [facility] 2024-07-04 00:00:00 2024-07-04 00:00:00 Shannon Sutton PA: [address] [place] [phone] , Ph. [facility] - GC_BAHC_[facility] [id number] [facility] 2024-06-13 00:00:00 2024-06-13 00:00:00 ALEENA Mares: [address] [place] [phone] , Ph. [facility] - GC_BAHC_L[facility] [id number] [facility] 2024-06-07 00:00:00 2024-06-07 00:00:00 Mike Snider MD: [address] [place] [phone] , Ph. [facility] - GC_BAHC_L[facility] [id number] [facility] 2024-05-30 00:00:00 2024-05-30 00:00:00 Shannon Sutton PA: [address] [place] [id number] , Ph. [facility] - GC_BAHC_[facility] [id number] [facility] 2024-05-11 00:00:00 2024-05-11 00:00:00 ALEENA Mares: [address] [place] [phone] , Ph. [facility] - GC_BAHC_L[facility] [id number] [facility] 2024-05-04 00:00:00 2024-05-04 00:00:00 Shannon Sutton PA: [address] [place] [phone] , Ph. [facility] - GC_BAHC_[facility] [id number] [facility] 2024-04-25 00:00:00 2024-04-25 00:00:00 ALEENA Mares: [address] [place] [phone] , Ph. [facility] - GC_BAHC_[facility] [id number] [facility] 2024-04-12 00:00:00 2024-04-12 00:00:00 Mike Snider MD: [address] [place] [phone] , Ph. [facility] - GC_BAHC_[facility] [id number] [facility] 2024-03-30 00:00:00 2024-03-30 00:00:00 ALEENA Mares: [address] [place] [phone] , Ph. [facility] - GC_BAHC_[facility] [id number] [facility] 2024-03-26 00:00:00 2024-03-26 00:00:00 ALEENA Mares: [address] [place] [phone] , Ph. [facility] - GC_BAHC_[facility] [id number] [facility] 2024-03-02 00:00:00 2024-03-02 00:00:00 Shannon Sutton PA: [address] [place] [phone] , Ph. [facility] - GC_BAHC_[facility] [id number] [facility] 2024-02-16 00:00:00 2024-02-16 00:00:00 Mike Snider MD: [address] [place] [phone] , Ph. [facility] - GC_BAHC_[facility] [id number] [facility] 2024-02-08 00:00:00 2024-02-08 00:00:00 Shannon Sutton PA: [address] [place] [phone] , Ph. [facility] - GC_BAHC_[facility] [id number] [facility] 2024-02-01 00:00:00 2024-02-01 00:00:00 Outpatient GC_BAHC_Tod d_J [facility] [id number] [facility] 2024-01-06 00:00:00 2024-01-06 00:00:00 Shannon Sutton PA: [address] [place] [phone] , Ph. [facility] - GC_BAHC_[facility] [id number] [facility] 2023-12-26 00:00:00 2023-12-26 00:00:00 Outpatient GC_BAHC_Tod d_J [facility] [id number] [facility] 2023-12-15 00:00:00 2023-12-15 00:00:00 Outpatient GC_BAHC_Tod d_J PRIV PRIV [id number] [facility] 2023-12-15 00:00:00 2023-12-15 00:00:00 Mike Snider MD: [address] [place] [phone] , Ph. [facility] - GC[facility] [id number] [facility] 2023-12-13 00:00:00 2023-12-13 00:00:00 Outpatient GC_BAHC_Tod d_J PRIV PRIV [id number] [facility] 2023-12-06 00:00:00 2023-12-06 00:00:00 ALEENA Mares: [address] [place] [phone] , Ph. [facility] - GC[facility] [id number] [facility] 2023-11-02 00:00:00 2023-11-02 00:00:00 Outpatient GC_BAHC_Tod d_J PRIV PRIV [id number] [facility] 2023-09-27 00:00:00 2023-09-27 00:00:00 Outpatient GC_BAHC_Tod d_J PRIV PRIV [id number] [facility] 2023-09-27 00:00:00 2023-09-27 00:00:00 Outpatient GC_BAHC_Tod d_J PRIV PRIV [id number] [facility] 2023-09-21 00:00:00 2023-09-21 00:00:00 Outpatient GC_BAHC_Tod d_J PRIV PRIV [id number] [facility] 2023-08-05 00:00:00 2023-08-05 00:00:00 Outpatient GC_BAHC_Tod d_J PRIV PRIV [id number] [facility] 2023-08-05 00:00:00 2023-08-05 00:00:00 Outpatient GC_BAHC_Tod d_J PRIV PRIV [id number] [facility] 2023-08-05 00:00:00 2023-08-05 00:00:00 Outpatient GC_BAHC_Tod d_J PRIV PRIV [id number] [facility] 2023-08-05 00:00:00 2023-08-05 00:00:00 Outpatient GC_BAHC_Tod d_J PRIV PRIV [id number] [facility] 2023-08-05 00:00:00 2023-08-05 00:00:00 Outpatient GC_BAHC_Tod d_J PRIV PRIV [id number] [facility] 2023-08-05 00:00:00 2023-08-05 00:00:00 Outpatient GC_BAHC_Tod d_J PRIV PRIV [id number] [facility] 2023-08-05 00:00:00 2023-08-05 00:00:00 Outpatient GC_BAHC_Tod d_J PRIV PRIV [id number] [facility] 2023-08-05 00:00:00 2023-08-05 00:00:00 Outpatient GC_BAHC_Tod d_J PRIV PRIV [id number] [facility] 2023-08-05 00:00:00 2023-08-05 00:00:00 Outpatient GC_BAHC_Tod d_J PRIV PRIV [id number] [facility] 2023-08-05 00:00:00 2023-08-05 00:00:00 Outpatient GC_BAHC_Tod d_J PRIV PRIV [id number] [facility] 2023-08-05 00:00:00 2023-08-05 00:00:00 Outpatient GC_BAHC_Tod d_J PRIV PRIV [id number] [facility] 2023-07-20 00:00:00 2023-07-20 00:00:00 Outpatient GC_BAHC_Tod d_J PRIV PRIV [id number] [facility] 2023-07-20 00:00:00 2023-07-20 00:00:00 Outpatient GC_BAHC_Tod d_J PRIV PRIV [id number] [facility] 2023-07-20 00:00:00 2023-07-20 00:00:00 Outpatient GC_BAHC_Tod d_J PRIV PRIV [id number] [facility] 2023-07-20 00:00:00 2023-07-20 00:00:00 Outpatient GC_BAHC_Tod d_J PRIV PRIV [id number] [facility] 2023-07-06 00:00:00 2023-07-06 00:00:00 Outpatient GC_BAHC_Tod d_J PRIV PRIV [id number] [facility] 2023-07-06 00:00:00 2023-07-06 00:00:00 Outpatient GC_BAHC_Tod d_J PRIV PRIV [id number] [facility] 2023-05-31 00:00:00 2023-05-31 00:00:00 Outpatient GC_BAHC_Tod d_J PRIV PRIV [id number] [facility] 2023-05-31 00:00:00 2023-05-31 00:00:00 Outpatient GC_BAHC_Tod d_J PRIV PRIV [id number] [facility] 2023-05-31 00:00:00 2023-05-31 00:00:00 Outpatient GC_BAHC_Tod d_J PRIV PRIV [id number] [facility] 2023-05-31 00:00:00 2023-05-31 00:00:00 Outpatient GC_BAHC_Tod d_J PRIV PRIV [id number] [facility] 2023-03-21 00:00:00 2023-03-21 00:00:00 Outpatient GC_BAHC_Tod d_J PRIV PRIV [id number] [facility] 2023-03-21 00:00:00 2023-03-21 00:00:00 Outpatient GC_BAHC_Tod d_J PRIV PRIV [id number] [facility] 2023-03-21 00:00:00 2023-03-21 00:00:00 Outpatient GC_BAHC_Tod d_J PRIV PRIV [id number] [facility] 2023-03-21 00:00:00 2023-03-21 00:00:00 Outpatient GC_BAHC_Tod d_J PRIV PRIV [id number] [facility] 2023-03-21 00:00:00 2023-03-21 00:00:00 Outpatient GC_BAHC_Tod d_J PRIV PRIV [id number] [facility] 2023-03-21 00:00:00 2023-03-21 00:00:00 Outpatient GC_BAHC_Tod d_J PRIV PRIV [id number] [facility] 2023-03-21 00:00:00 2023-03-21 00:00:00 Outpatient GC_BAHC_Tod d_J PRIV PRIV [id number] [facility] 2023-03-15 00:00:00 2023-03-15 00:00:00 ALEENA Mares: [address] [place] [phone] , Ph. [facility] [id number] [facility] 2023-02-25 00:00:00 2023-02-25 00:00:00 Outpatient GC_BAHC_Tod d_J PRIV PRIV [id number] [facility] 2023-02-25 00:00:00 2023-02-25 00:00:00 Outpatient GC_BAHC_Tod d_J PRIV PRIV [id number] [facility] 2023-02-18 00:00:00 2023-02-18 00:00:00 ALEENA Mares: [address] [place] [phone] , Ph. [facility] [id number] [facility] 2023-01-27 00:00:00 2023-01-27 00:00:00 Outpatient GC_BAHC_Tod d_J PRIV PRIV [id number] [facility] 2023-01-27 00:00:00 2023-01-27 00:00:00 Outpatient GC_BAHC_Tod d_J PRIV PRIV [id number] [facility] 2023-01-27 00:00:00 2023-01-27 00:00:00 Outpatient GC_BAHC_Tod d_J PRIV PRIV [id number] [facility] 2023-01-21 00:00:00 2023-01-21 00:00:00 ALEENA Mares: [address] [place] [phone] , Ph. [facility] GC_[facility]HC[facility] [id number] [facility] 2022-12-27 00:00:00 2022-12-27 00:00:00 Outpatient GC_BAHC_Tod d_J PRIV PRIV [id number] [facility] 2022-12-23 00:00:00 2022-12-23 00:00:00 Outpatient GC_BAHC_Tod d_J PRIV PRIV [id number] [facility] 2022-12-21 00:00:00 2022-12-21 00:00:00 Mike Snider MD: [address] [place] [phone] , Ph. [facility] GC_[facility]HC[facility] [id number] [facility] 2022-12-07 00:00:00 2022-12-07 00:00:00 ALEENA Mares: [address] [place] [phone] , Ph. [facility] [id number] [facility] 2022-11-09 00:00:00 2022-11-09 00:00:00 ALEENA Mares: [address] [place] [phone] , Ph. [facility] [id number] [facility] 2022-09-28 00:00:00 2022-09-28 00:00:00 ALEENA Mares: [address] [place] [phone] , Ph. [facility] [id number] [facility] 2022-09-20 00:00:00 2022-09-20 00:00:00 Outpatient GC_BAHC_Tod d_J PRIV PRIV [id number] [facility] 2022-09-20 00:00:00 2022-09-20 00:00:00 Outpatient GC_BAHC_Tod d_J PRIV PRIV [id number] [facility] 2022-09-20 00:00:00 2022-09-20 00:00:00 Outpatient GC_BAHC_Tod d_J PRIV PRIV [id number] [facility] 2022-09-20 00:00:00 2022-09-20 00:00:00 Outpatient GC_BAHC_Tod d_J PRIV PRIV [id number] [facility] 2022-09-20 00:00:00 2022-09-20 00:00:00 Outpatient GC_BAHC_Tod d_J PRIV PRIV [id number] [facility] 2022-09-20 00:00:00 2022-09-20 00:00:00 Outpatient GC_BAHC_Tod d_J PRIV PRIV [id number] [facility] 2022-09-14 00:00:00 2022-09-14 00:00:00 Outpatient GC_BAHC_Tod d_J PRIV PRIV [id number] [facility] 2022-09-03 00:00:00 2022-09-03 00:00:00 ALEENA Mares: [address] [place] [phone] , Ph. [facility] [id number] [facility] 2022-08-17 00:00:00 2022-08-17 00:00:00 ALEENA Mares: [address] [place] [phone] , Ph. [facility] [id number] [facility] 2022-08-09 00:00:00 2022-08-09 00:00:00 Mike Snider MD: [address] [place] [phone] , Ph. [facility] [id number] [facility] 2022-08-04 00:00:00 2022-08-04 00:00:00 Outpatient GC_BAHC_Tod d_J PRIV PRIV [id number] [facility] 2022-07-22 00:00:00 2022-07-22 00:00:00 Outpatient GC_BAHC_Tod d_J PRIV PRIV [id number] [facility] 2022-07-13 00:00:00 2022-07-13 00:00:00 Outpatient Shannon Sutton [facility] [id number] [facility] 2022-07-13 00:00:00 2022-07-13 00:00:00 ALEENA Mares: [address] [place] [phone] , Ph. [facility] [id number] [facility] 2022-06-22 00:00:00 2022-06-22 00:00:00 Outpatient GC_BAHC_Tod d_J PRIV PRIV [id number] [facility] 2022-06-21 00:00:00 2022-06-21 00:00:00 Outpatient GC_BAHC_Tod d_J PRIV PRIV [id number] [facility] 2022-06-17 00:00:00 2022-06-17 00:00:00 Outpatient GC_BAHC_Tod d_J PRIV PRIV [id number] [facility] 2022-06-17 00:00:00 2022-06-17 00:00:00 Mike Snider MD: [address] [place] [phone] , Ph. [facility] [id number] [facility] 2022-06-17 00:00:00 2022-06-17 00:00:00 Outpatient Mike Snider [facility] PRIV [id number] 2022-06-14 02:27:00 2022-06-14 02:27:00 Outpatient GC_BAHC_Tod d_J [facility] PRIV [id number] [facility] 2022-06-04 04:09:00 2022-06-04 04:09:00 Outpatient GC_BAHC_Tod d_J [facility] PRIV [id number] [facility] 2022-06-04 00:00:00 2022-06-04 00:00:00 ALEENA Mares: [address] [place] [phone] , Ph. [facility] GC_BAHC_[facility] [id number] [facility] 2022-06-04 00:00:00 2022-06-04 00:00:00 Outpatient Shannon Sutton [facility] [id number] 2022-06-02 02:16:00 2022-06-02 02:16:00 Outpatient GC_BAHC_Tod d_J [facility] [id number] [facility] 2022-06-01 01:13:00 2022-06-01 01:13:00 Outpatient GC_BAHC_Tod d_J PRIV PRIV [id number] [facility] 2022-06-01 00:00:00 2022-06-01 00:00:00 ALEENA Mares: [address] [place] [phone] , Ph. [facility] [id number] [facility] 2022-06-01 00:00:00 2022-06-01 00:00:00 Outpatient Amparo Suttonfer [facility] [id number] 2022-05-28 11:29:00 2022-05-28 11:29:00 Outpatient GC_BAHC_Tod d_J PRIV PRIV [id number] [facility] 2022-05-27 11:48:00 2022-05-27 11:48:00 Outpatient GC_BAHC_Tod d_J PRIV PRIV [id number] [facility] 2022-05-19 09:16:00 2022-05-19 09:16:00 Outpatient GC_BAHC_Tod d_J PRIV PRIV [id number] [facility] 2022-05-19 00:00:00 2022-05-19 00:00:00 ALEENA Mares: [address] [place] [phone] , Ph. [facility] [id number] [facility] 2022-05-19 00:00:00 2022-05-19 00:00:00 Outpatient Herman Shannon [facility] [id number] 2022-05-16 10:45:00 2022-05-16 10:45:00 Outpatient GC_BAHC_Tod d_J [facility] PRIV [id number] [facility] 2022-05-07 06:48:00 2022-05-07 06:48:00 Outpatient GC_BAHC_Tod d_J PRIV PRIV [id number] [facility] 2022-05-07 00:00:00 2022-05-07 00:00:00 ALEENA Mares: [address] [place] [phone] , Ph. [facility] [id number] [facility] 2022-05-07 00:00:00 2022-05-07 00:00:00 Outpatient Shannon Sutton [facility] [id number] 2022-04-24 10:41:00 2022-04-24 10:41:00 Outpatient GC_BAHC_Tod d_J PRIV PRIV [id number] [facility] 2022-04-22 02:04:00 2022-04-22 02:04:00 Outpatient GC_BAHC_Tod d_J PRIV PRIV [id number] [facility] 2022-04-22 00:00:00 2022-04-22 00:00:00 Outpatient Mike Snider [facility] [id number] [id number] 00:00:00 2022-04-22 00:00:00 Mike Snider MD: [address] [place] [phone] , Ph. [facility] [id number] [facility] 2022-04-11 10:45:00 2022-04-11 10:45:00 Outpatient GC_BAHC_Tod d_J PRIV PRIV [id number] [facility] 2022-04-02 01:08:00 2022-04-02 01:08:00 Outpatient GC_BAHC_Tod d_J PRIV PRIV [id number] [facility] 2022-04-02 00:00:00 2022-04-02 00:00:00 Outpatient Shannon Sutton [facility] [id number] 2022-04-02 00:00:00 2022-04-02 00:00:00 Shannon Sutton PA: [address] [place] [phone] , Ph. [facility] [id number] [facility] 2022-03-28 10:46:00 2022-03-28 10:46:00 Outpatient GC_BAHC_Tod d_J PRIV PRIV [id number] [facility] 2022-03-23 01:40:00 2022-03-23 01:40:00 Outpatient GC_BAHC_Tod d_J PRIV PRIV [id number] [facility] 2022-03-19 08:35:00 2022-03-19 08:35:00 Outpatient GC_BAHC_Tod d_J PRIV PRIV [id number] [facility] 2022-03-19 00:00:00 2022-03-19 00:00:00 Outpatient Shannon Sutton [facility] [id number] [id number] 00:00:00 2022-03-19 00:00:00 ALEENA Mares: [address] [place] [phone] , Ph. [facility] [id number] [facility] 2022-03-16 01:18:00 2022-03-16 01:18:00 Outpatient GC_BAHC_Tod d_J PRIV PRIV [id number] [facility] 2022-03-16 00:00:00 2022-03-16 00:00:00 Outpatient Shannon Sutton [facility] [id number] 2022-03-16 00:00:00 2022-03-16 00:00:00 ALEENA Mares: [address] [place] [phone] , Ph. [facility] [id number] [facility] 2022-03-11 01:01:00 2022-03-11 01:01:00 Outpatient GC_BAHC_Tod d_J PRIV PRIV [id number] [facility] 2022-03-10 03:19:00 2022-03-10 03:19:00 Outpatient GC_BAHC_Tod d_J PRIV PRIV [id number] [facility] 2022-03-09 05:30:00 2022-03-09 05:30:00 Outpatient GC_BAHC_Tod d_J PRIV PRIV [id number] [facility] 2022-03-04 11:25:00 2022-03-04 11:25:00 Outpatient GC_BAHC_Tod d_J PRIV PRIV [id number] [facility] 2022-03-04 00:00:00 2022-03-04 00:00:00 Outpatient Mike Snider [facility] [id number] 2022-03-04 00:00:00 2022-03-04 00:00:00 Mike Snider MD: [address] [place] [phone] , Ph. [facility] [id number] [facility] 2022-03-04 00:00:00 2022-03-04 00:00:00 Outpatient Mike Snider [facility] PRIV [id number] 2022-03-03 04:03:00 2022-03-03 04:03:00 Outpatient GC_BAHC_Tod d_J PRIV PRIV [id number] [facility] 2022-03-02 12:59:00 2022-03-02 12:59:00 Outpatient GC_BAHC_Tod d_J [facility] [id number] [facility] 2022-03-02 00:00:00 2022-03-02 00:00:00 Outpatient Shannon Sutton [facility] [id number] 2022-03-02 00:00:00 2022-03-02 00:00:00 Shannon Sutton PA: [address] [facility], [place] [address] , Ph. [facility] [id number] [facility] 2022-03-02 00:00:00 2022-03-02 00:00:00 Outpatient Shannon Sutton [facility] [id number] 2022-03-01 11:07:00 2022-03-01 11:07:00 Outpatient GC_BAHC_Spa jacquelyn_G [facility] [id number] [facility]
[2025-01-12 19:25] LABS: PT Prothrombin Time 15.2 SECONDS (10.0-13.0); PTT, Activated Partial Thromb 35.8 SECONDS (24.3-36.9); Protime INR 1.35
[2025-01-12 19:28] LABS: Absolute Basophils 0.1 K/uL (0-0.5); Absolute Eosinophils 0.3 K/uL (0-0.5); Absolute Lymphocytes (CBC) 2.2 K/uL (0.7-4.9); Absolute Monocytes 0.6 K/uL (0.1-1.3); Absolute Neutrophil 5.5 K/uL (1.8-8.0); Basophils % 0.6 % (0-1.3); Eosinophils % 3.1 % (0-4.4); Hematocrit 45.6 % (36.0-45.0); Lymphocytes % 25.7 % (15.3-44.8); MCH 27.4 pg (27.0-35.0); MCHC 32.9 g/dL (32.0-36.0); MCV 83.4 fL (80-100); MPV 8.4 fL (7.6-11.3); Monocytes % 7.2 % (3.3-12.3); Neutrophils % 63.4 % (41.7-73.7); Nucleated Red Blood Cells % 0.1 % (0-0); Platelets 239 thou/uL (152-406); RBC Red Blood Cell Count 5.47 M/uL (3.86-4.86); Red Cell Distribution Width 15.6 % (12.1-15.2)
[2025-01-12 19:32] LABS: AST/SGOT 20 U/L (15-37); Albumin 3.1 g/dL (3.4-5.0); Albumin/Globulin Ratio 0.7 (1.1-1.8); Alkaline Phosphatase 100 U/L (45-117); Anion Gap 8.1 mEq/L (5.0-15.0); BUN Blood Urea Nitrogen 25 mg/dL (7-18); Bicarbonate 32 mEq/L (21-32); Bilirubin Total 0.7 mg/dL (0.2-1.0); Globulin 4.3 g/dL (2.3-3.5); Glomerular Filtration Rate 70 ml/min (=/>90); Glucose Level 92 mg/dL (74-106); Potassium 4.1 mEq/L (3.5-5.1); Protein, Total 7.4 g/dL (6.4-8.2); Sodium Level 138 mEq/L (136-145)
[2025-01-12] MEDS ORDERED: HYDROMORPHONE HCL 0.5 MG/0.5 ML INJ ONE (19:43)
[2025-01-12] MEDS ORDERED: ONDANSETRON 4 MG/2 ML VIAL ONE (19:43)
[2025-01-12 19:59] LABS: ALT/SGPT < 14 U/L (13-56)
--- NOTE | 2025-01-12 21:04 | RAD REPORT ---
EXAMINATION: UPPER EXTREMITY VENOUS UNILATE CLINICAL INDICATION: Female, 74 years old. [facility] MAIN Pain;Swelling Bed Name: 4 TECHNIQUE: Complete venous duplex sonography of the left upper extremity was performed. The examinati on included compression for vein patency, color Doppler imaging and flow augmentation in response to distal compression of the internal jugular, brachiocephalic, subclavian, axillary, brachial, radia l, ulnar, cephalic and basilic veins. COMPARISON: No prior exam. FINDINGS: Duplex sonography testing of the veins of the left upper extremity is completed. Color flow imaging s hows all veins to be compressible with appropriate color filling. Pulsatile and phasic flow is present within the upper extremity deep and superficial veins examined. IMPRESSION: There is no deep vein or superficial vein thrombosis.
--- NOTE | 2025-01-12 21:39 | RAD REPORT ---
EXAMINATION: US LEFT LOWER EXTREMITY VENOUS DOPPLER CLINICAL INDICATION: [facility] MAIN leg SWELLING Bed Name: 4 N TECHNIQUE: Complete bilateral duplex sonography of the LEFT lower extremity veins was performed. The examination included compression for vein patency, color Doppler imaging and flow augmentation in response to distal compression of the distal external iliac, common femoral, femoral, popliteal, tibi al, and great and small saphenous veins. COMPARISON: No prior exam. FINDINGS: Duplex sonography testing of the veins of the LEFT lower extremity was performed. Color flow imaging shows all veins to be compressible with [id number] color filling. Pulsatile and phasic flow is present within all lower extremity deep and superficial veins examined. IMPRESSION: No evidence of deep venous thrombosis.
--- NOTE | 2025-01-12 22:51 | EDPHYS ---
Physician Documentation [facility] Name: Kely Harper Age: 74 yrs Sex: Female : 1950 Arrival Date: 01/12/2025 Time: 18:25 Bed 4 Private MD: ED Physician Maicol Abad HPI: 01/12 18:46 This 74 yrs old Female presents to ER via EMS with complaints of Leg Pain. sb4 18:47 left lower leg pain since this morning. redness, warmth, and tenderness reported by [facility] sb4 staff. has history of DVTs, is on eliquis, also has afib. patient has history of cerebral palsy, is nonverbal, can nod yes or no to questions. Historical: - Allergies: 18:40 Fentanyl; hb 18:40 PENICILLINS; hb - PMHx: 18:40 DVT; GERD; CHF; HTN; AFIB; Anxiety; Cerebral Palsy; Chronic pain; hb - Immunization history:: Adult Immunizations unknown. - Infectious Disease History:: Denies. - Social history:: Smoking status: unknown. ROS: 18:49 Constitutional: Negative for fever, chills, and weight loss, sb4 18:49 MS/extremity: Positive for erythema, pain, swelling, tenderness, of the left leg, 18:49 All other systems are negative, Exam: 18:49 Head/Face: Normocephalic, atraumatic. Eyes: Extra-ocular motions intact. Periorbital sb4 areas with no swelling, redness, or edema. Respiratory: No increased work of breathing, no retractions or nasal flaring. 18:49 Constitutional: The patient appears alert, awake, contracted, obese, in obvious pain, uncomfortable, 18:49 Cardiovascular: Rate: tachycardic, Rhythm: regular, 18:49 Musculoskeletal/extremity: DVT Exam: negative Homans' sign noted on exam, no appreciated bluish discoloration, pain, swelling, tenderness, erythema, increased warmth, left arm, 18:49 Skin: cellulitis, that is moderate, irregular, on the left hebert, 18:49 Skin: skin breakdown bilateral gluteal folds. Vital Signs: 18:38 BP 115 / 77; Pulse 97; Resp 17; Temp 98(A); Pulse Ox 94% on R/A; Pain 10/10; hb 19:50 BP 135 / 88; Pulse 92; Resp 18 S; Temp 97.2(O); Pulse Ox 98% on R/A; br2 21:06 BP 125 / 86; Pulse 87; Resp 18; Pulse Ox 93% ; cp4 23:28 BP 120 / 93; Pulse 87; Resp 18; Pulse Ox 93% ; cp4 01/13 00:28 BP 102 / 65; Pulse 79; Resp 18; Pulse Ox 95% on 3 lpm NC; br2 01/12 18:38 Pain Scale: Adult hb MDM: 01/12 18:32 Medical Screening Exam initiated sb4 22:52 Data reviewed: vital signs, nurses notes, EMS record, detention records, lab test sb4 result(s), EKG, radiologic studies, and as a result, I will discharge patient. Counseling: I had a detailed discussion with the patient and/or guardian regarding the historical points, exam findings, and any diagnostic results supporting the discharge/admit diagnosis, lab results, radiology results, the need for outpatient follow up, for definitive care, to return to the emergency department if symptoms worsen or persist or if there are any questions or concerns that arise at home. 23:05 Consideration of Admission/Observation Escalation of care including sb4 admission/observation considered. Care significantly affected by the following chronic conditions: Hypertension, Congestive Heart Failure, cerebral palsy, afib. 01/12 18:33 Order name: Blood Culture Adult (2) sb4 01/12 18:33 Order name: CBC with Diff; Complete Time: 19:34 sb4 01/12 18:33 Order name: CMP; Complete Time: 20:00 sb4 01/12 18:33 Order name: Lactate w/ 2H reflex if indic.; Complete Time: 19:36 sb4 01/12 18:33 Order name: Protime (+inr); Complete Time: 19:26 sb4 01/12 18:33 Order name: Ptt, Activated; Complete Time: 19:26 sb4 01/12 18:33 Order name: Extremity Venous Uni Ltd US; Complete Time: 21:46 sb4 01/12 18:58 Order name: UPPER EXTREMITY VENOUS UNILATE; Complete Time: 21:09 EDMS 01/12 18:33 Order name: Cardiac monitoring; Complete Time: 19:06 sb4 01/12 18:33 Order name: EKG - Nurse/Tech; Complete Time: 20:14 sb4 01/12 18:33 Order name: IV Saline Lock - Large Bore; Complete Time: 19:06 sb4 01/12 18:33 Order name: Labs collected and sent; Complete Time: 19:06 sb4 01/12 18:33 Order name: O2 Per Protocol; Complete Time: 19:06 sb4 01/12 18:33 Order name: O2 Sat Monitoring; Complete Time: 19:06 sb4 01/12 18:33 Order name: Vital Signs; Complete Time: 19:06 sb4 EC:14 Rate is 102 beats/min. Rhythm is irregularly irregular, A fib. QRS interval is normal sb4 at 70 msec. QT interval is normal at 356 msec. No Q waves. T waves are Normal. No ST changes noted. Clinical impression: Atrial Fibrillation. Interpreted by me. Reviewed by me. Administered Medications: 19:59 Drug: HYDROmorphone IVP 0.5 mg IVP once Route: IVP; Site: right antecubital; br2 23:27 Follow up: Response: No adverse reaction; Pain is decreased cp4 19:59 Drug: Ondansetron IVP 4 mg IVP once; over 2 minutes Route: IVP; Site: right antecubital;br2 23:26 Follow up: Response: No adverse reaction cp4 22:52 CANCELLED (Physician Discretion): trimethoprim-sulfamethoxazole(160 mg-800 mg (ds) 1 sb4 tablet PO once 23:00 Not Given (Duplicate Order): [id number] mg IVPB once over 30 mins; (mix in 50 mL) cp4 23:00 Drug: Clindamycin IVPB 600 mg IVPB once over 30 mins; (mix in 50 mL) Route: IVPB; cp4 Infused Over: 30 mins; Site: left forearm; 23:27 Follow up: Response: No adverse reaction; IV Status: Completed infusion cp4 Disposition Summary: 01/12/25 22:50 Discharge Ordered Notes: Location: Home sb4 Problem: new sb4 Symptoms: have improved sb4 Condition: Stable sb4 Diagnosis - Cellulitis of left lower limb sb4 Followup: sb4 - With: Emergency Department - When: As needed - Reason: Fever > 102 F, Worsening of condition Discharge Instructions: - Discharge Summary Sheet sb4 - Cellulitis, Adult sb4 Forms: - Antibiotic Education sb4 - Patient Portal Instructions sb4 - Leadership Thank You Letter sb4 Prescriptions: - Clindamycin HCl 300 mg Oral Capsule - take 1 capsule ORAL route every 6 hours for 10 days; 40 capsule; Refills: 0, sb4 Product Selection Permitted Addendum: 01/14/2025 12:40 Co-signature as Attending Physician, Maicol Abad MD I agree with the assessment and c [place] plan of care. Signatures: Dispatcher [employer] EDMS Maicol Abad MD MD cha Baxter, Heather, RN RN Bria Holland, PAMtC PA-C sb4 Mallory Gannon cp4 Catherine Hubbard, RN RN br2 Corrections: (The following items were deleted from the chart) 01/12 18:34 18:34 BLOOD CULTURE*+BA.LAB.BRZ ordered. EDMS EDMS 18:34 18:34 CBC+H.LAB.BRZ ordered. EDMS EDMS 18:34 18:34 COMPREHENSIVE METABOLIC PANEL+C.LAB.BRZ ordered. EDMS EDMS 18:34 18:34 LACTATE+C.LAB.BRZ ordered. EDMS EDMS 18:34 18:34 PROTIME (+INR)+COAG.LAB.BRZ ordered. EDMS EDMS 18:34 18:34 PTT, ACTIVATED+COAG.LAB.BRZ ordered. EDMS EDMS 18:34 18:34 Urinalysis+U.LAB.BRZ ordered. EDMS EDMS 18:34 18:34 Extremity Venous Uni Ltd+US.RAD.BRZ ordered. EDMS EDMS 18:34 18:34 Extremity Venous Uni Ltd+US.RAD.BRZ ordered. EDMS EDMS 18:49 18:47 left lower leg pain since this morning. redness, warmth, and tenderness reported sb4 by [facility] staff. has history of DVTs, is on eliquis, also has afib. sb4 21:25 18:49 Constitutional: The patient appears alert, awake, obese, in obvious pain, sb4 uncomfortable, sb4 22:52 22:50 Trimethoprim-Sulfamethoxazole PO (160 mg-800 mg (DS) 1 tablet PO once ordered. sb4sb4 23:23 18:33 Accucheck ordered. sb4 sb4
--- NOTE | 2025-01-12 22:51 | ER ---
Nurse's Notes [facility] Name: Kely Harper Age: 74 yrs Sex: Female : 1950 Arrival Date: 01/12/2025 Time: 18:25 Bed 4 Private MD: Diagnosis: Cellulitis of left lower limb Presentation: 01/12 18:38 Chief complaint: EMS states: Sent from [facility] for left arm and left leg hb pain. 20G RHAND. Coronavirus screen: At this time, the client does not indicate any symptoms associated with coronavirus-19. Ebola Screen: No symptoms or risks identified at this time. Initial Sepsis Screen: Does the patient meet any 2 criteria? No. Patient's initial sepsis screen is negative. Does the patient have a suspected source of infection? No. Patient's initial sepsis screen is negative. Risk Assessment: Do you want to hurt yourself or someone else? Patient reports no desire to harm self or others. Onset of symptoms is unknown. 18:38 Method Of Arrival: EMS: [facility] hb 18:38 Acuity: NO 2 hb Historical: - Allergies: 18:40 Fentanyl; hb 18:40 PENICILLINS; hb - PMHx: 18:40 DVT; GERD; CHF; HTN; AFIB; Anxiety; Cerebral Palsy; Chronic pain; hb - Immunization history:: Adult Immunizations unknown. - Infectious Disease History:: Denies. - Social history:: Smoking status: unknown. Screenin:15 [facility] ED Fall Risk Assessment (Adult) History of falling in the last 3 months, br2 including since admission No falls in past 3 months (0 pts) Confusion or Disorientation Yes (5 pts) Intoxicated or Sedated No (0 pts) Impaired Gait Yes (1 pt) Mobility Assist Device Used No (0 pt) Altered Elimination Yes (1 pt) Score/Fall Risk Level 3 or more points = High Risk Maintained a safe environment. Abuse screen: Denies threats or abuse. Denies injuries from another. Nutritional screening: No deficits noted. Tuberculosis screening: No symptoms or risk factors identified. Assessment: 19:15 Reassessment: Patient and/or family updated on plan of care and expected duration. Pain br2 level reassessed. General: Appears uncomfortable, Behavior is restless. Pain: Unable to use pain scale. PT ISN'T SPEAKING ONLY MOANS. Neuro: [place] Agitation-Sedation Scale (RASS): +1 Restless Level of Consciousness is confused, Oriented to UNALBE TO ASSESS. : PT IS SATURATED IN URINE WITH [address]. Derm: Decubitus located on left MEDIAL PLANTAR OF LEFT FOOT STAGE 2 APPROX 1/2 CM WITH A BANDAID OVER WOUND. Musculoskeletal: PT SCREAMS WHEN RIGHT LEG IS TOUCHED. 19:15 Musculoskeletal: PT'S LEFT LEG CONTRACTED IN FLEXED POSITION AND RIGHT LEG OVER LEFT br2 LEG. 21:34 Musculoskeletal: br2 23:20 Reassessment: [facility] notified to arrange transportation back to facility. cp4 Vital Signs: 18:38 BP 115 / 77; Pulse 97; Resp 17; Temp 98(A); Pulse Ox 94% on R/A; Pain 10/10; hb 19:50 BP 135 / 88; Pulse 92; Resp 18 S; Temp 97.2(O); Pulse Ox 98% on R/A; br2 21:06 BP 125 / 86; Pulse 87; Resp 18; Pulse Ox 93% ; cp4 23:28 BP 120 / 93; Pulse 87; Resp 18; Pulse Ox 93% ; cp4 01/13 00:28 BP 102 / 65; Pulse 79; Resp 18; Pulse Ox 95% on 3 lpm NC; br2 01/12 18:38 Pain Scale: Adult hb ED Course: 01/12 18:32 Patient arrived in ED. sb4 18:32 [facility] sb4 18:32 Maicol Abad MD is Attending Physician. sb4 18:39 Triage completed. hb 18:42 Arm band placed on. hb 18:42 Maintain EMS IV. Dressing intact. Good blood return noted. Gauge \T\ site: 20 RHAND. hb Flushed with 10 mL NS. 18:42 First set of blood cultures drawn by me. hb 19:02 Initial lab(s) drawn, by me, sent to lab. Second set of blood cultures drawn by me. hb 19:07 Accessed peripheral vein via ultrasound, utilizing dynamic ultrasound technique using hb 20G Nexia IV catheter per hospital protocol. Clean \T\ dry. Good blood return. Flushes easily. 19:15 Patient has correct armband on for positive identification. Placed in gown. Bed in low br2 position. Call light in reach. Side rails up X2. Provided Education on: PLAN OF CARE. 20:26 Extremity Venous Uni Ltd US In Process Unspecified. EDMS 20:26 UPPER EXTREMITY VENOUS UNILATE In Process Unspecified. EDMS 21:47 Cleaned of incontinence. Linen changed. purewick in place. cp4 23:28 Mallory Gannon is Primary Nurse. cp4 01/13 00:29 IV discontinued, intact, bleeding controlled, No redness/swelling at site. Pressure br2 dressing applied. 00:32 No provider procedures requiring assistance completed. br2 Administered Medications: 01/12 19:59 Drug: HYDROmorphone IVP 0.5 mg IVP once Route: IVP; Site: right antecubital; br2 23:27 Follow up: Response: No adverse reaction; Pain is decreased cp4 19:59 Drug: Ondansetron IVP 4 mg IVP once; over 2 minutes Route: IVP; Site: right antecubital;br2 23:26 Follow up: Response: No adverse reaction cp4 22:52 CANCELLED (Physician Discretion): trimethoprim-sulfamethoxazole(160 mg-800 mg (ds) 1 sb4 tablet PO once 23:00 Not Given (Duplicate Order): [id number] mg IVPB once over 30 mins; (mix in 50 mL) cp4 23:00 Drug: Clindamycin IVPB 600 mg IVPB once over 30 mins; (mix in 50 mL) Route: IVPB; cp4 Infused Over: 30 mins; Site: left forearm; 23:27 Follow up: Response: No adverse reaction; IV Status: Completed infusion cp4 Outcome: 22:50 Discharge ordered by . sb4 01/13 00:29 Discharged to long-term. Report called to MALLORY GAVE REPORT TO MRS ESCALANTE AND br2 LONG-TERM Condition: stable Discharge instructions given to EMS, Instructed on discharge instructions, Demonstrated understanding of instructions, 00:32 Patient left the ED. br2 Signatures: Dispatcher [employer] EDMS Zuri Arnett, Bria Dahl RN, PA-C PA-C sb4 Mallory Gannon cp4 Catherine Hubbard RN RN br2 Corrections: (The following items were deleted from the chart) 01/12 18:43 18:38 Chief complaint: EMS states: Sent from [facility] for left arm and left hb leg pain. 20G RFA. hb 18:43 18:42 Maintain EMS IV. Dressing intact. Good blood return noted. Gauge \T\ site: 20RFA. hb Flushed with 10 mL NS hb 21:36 19:15 Musculoskeletal: RIGHT LEG CONTRACTED UNDER LEFT LEG IN A FLEXED POSITION br2 br2
[2025-01-12] MEDS ORDERED: CLINDAMYCIN 600MG/D5W 50 ML IV ONE (22:55)
[2025-01-13 00:48] VITALS: TEMP 97.2
[2025-01-13 00:53] VITALS: BP 102/65; O2SAT 95
--- NOTE | 2025-01-14 12:01 | EKG ---
Test Date: 2025-01-12 Test Time: 19:59:10 Spark Tester: RUPA MEASUREMENT RESULTS: Intervals: Rate: 100 LA: QRSD: 68 QT: 350 QTc: 451 [place]: P: LA: QRS: 0 T: 1 INTERPRETIVE STATEMENTS: Atrial fibrillation with premature ventricular or aberrantly conducted complexes Anteroseptal infarct, age undetermined Abnormal ECG Compared to ECG 07/13/2023 20:04:21 Ventricular premature complex(es) now present Myocardial infarct finding still present Electronically Signed On 01-14-25 11:58:56 BRINE SUPERVISOR by Malick Hennessy
--- NOTE | 2025-01-14 12:01 | EKG ---
Test Date: 2025-01-12 Test Time: 20:00:05 Consolidation Accountant: RUPA MEASUREMENT RESULTS: Intervals: Rate: 102 ND: QRSD: 70 QT: 356 QTc: 463 [place]: P: ND: QRS: -2 T: -24 INTERPRETIVE STATEMENTS: Atrial fibrillation with rapid ventricular response Low voltage QRS Septal infarct, age undetermined Abnormal ECG Compared to ECG 01/12/2025 19:59:10 Low QRS voltage now present Ventricular premature complex(es) no longer present Myocardial infarct finding still present Electronically Signed On 01-14-25 11:58:51 CINDER DUMP CRANE OPERATOR by Malick Hennessy
== END 2025-01-13 00:32 | disposition home or self-care (01) ==
LOC: ER 18:25
DX: L03.116 Cellulitis of left lower limb (principal); I48.91 Unspecified atrial fibrillation; G80.9 Cerebral palsy, unspecified; Z86.718 Personal history of other venous thrombosis and embolism; Z79.01 Long term (current) use of anticoagulants
CPT/HCPCS: 96365; 93005 ×2; 87040 ×2; 85025; 36415; 85610; 83605; 85730; 80053; 93971 ×2; 96375; 99285; J1171; J2405